=== PATIENT | male | born 1975 | race Caucasian/White ===

== ENCOUNTER 2019-11-13 10:18 | Emergency (ER) | payer SELFPAY ==
--- NOTE | 2019-11-13 10:20 | ED_ITS ---
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
[2019-11-13 10:23] VITALS: BP 128/89; PULSE 85; RESP 16; TEMP 36.7; O2SAT 97; BMI 28.5
--- NOTE | 2019-11-13 10:36 | XR_ITS ---
WS: [id number] XR chest 1V portable [id number] REASON FOR EXAM: cp, cough FINDINGS: Comparisons were made to July 24, 2019. The heart and mediastinal interfaces are normal. The lung schilling are well aerated. There is no pneumonia, pleural effusion, pulmonary edema, pneumotho rax, or mass effect. There is no abnormalities of the hilum or apices. There is no osseous abnormalities. XR/XR chest 1V portable [id number] IMPRESSION: No active cardiopulmonary changes.
--- NOTE | 2019-11-13 10:36 | ECG_ITS ---
Measurements Intervals [place] Rate: 83 P: 31 VT: 161 QRS: -15 QRSD: 101 T: 32 QT: 339 QTc: 400 SINUS RHYTHM MODERATE VOLTAGE CRITERIA FOR LVH, CONSIDER NORMAL VARIANT NONSPECIFIC T-WAVE ABNORMALITY Compared to ECG 10/18/2018 20:03:29 T-wave abnormality now present Sinus tachycardia no longer present Electronically Signed On 11-13-2019 13:04:16 VERTICAL BORING MILL OPERATOR by Jayda Gonzalez M.D. [id number]
--- NOTE | 2019-11-13 10:37 | ED_ITS ---
HPI - General Adult General: Chief complaint: Chest Pain Stated complaint: CP X 7DAYS Time Seen by Provider: 11/13/19 10:32 History of Present Illness: HPI narrative: Patient complains about intermittent sharp chest pains over the last 7 days. Denies any nausea vomiting or diaphoresis. Has had chest cold for the last 4 days. Said he had a spasm in his left chest this morning and he felt like he had to come and get checked out. Just quit meth 30 days ago and quit smoking just a few days ago. Does feel little anxious. No cardiac history. MD complaint: Chest pain Onset (ago): day(s) (7 days intermittent) Location: chest Radiation: non-radiation Severity: mild Quality: stabbing Pain Consistency: intermittent Associated symptoms: Reports chest pain and cough; Deny diaphoresis, dyspnea, fevers/chills, headache(s), nausea, rash, palpitations, short of breath or vomiting Review of Systems Const: Denies: diaphoresis Eyes: Denies: change in vision or blurry vision ENMT: Reports: nasal congestion; Denies: throat pain Card: Reports: chest pain; Denies: palpitations Resp: Denies: shortness of breath, productive cough or non-productive cough GI: Denies: abdominal pain, nausea or vomiting : Denies: difficulty urinating Musc: Denies: extremity pain Skin/Breast: Denies: rash Neuro: Denies: headache Psych: Denies: anxiety or depression Justin/Lymph: Denies: easy bruising PFSH ED PFSH: Social History Smoking and tobacco status: current every day smoker Physical Exam Const: COMMON NORMALS: no apparent distress, average body habitus and oriented x3 HENMT: COMMON NORMALS: normocephalic HEAD & SCALP: normal to inspection and normocephalic FACE & SINUS: normal facial exam NOSE: other (Nasal congestion) Eye: COMMON NORMALS: conjunctivae normal GENERAL EYE: normal appearance of both eyes CONJUNCTIVA: Yes conjunctivae normal Neck/C-Spine: COMMON NORMALS: no JVD Chest: COMMONS NORMALS: inspection of chest normal Resp: COMMON NORMALS: normal respiratory effort and clear to auscultation bilaterally AUSCULTATION: clear to auscultation bilaterally Cardio: COMMON NORMALS: no JVD, regular rate and regular rhythm RATE: regular rate RHYTHM: regular rhythm GI: COMMON NORMALS: normal to inspection, nondistended, normoactive bowel sounds Extremity: COMMON NORMALS: normal to inspection and full ROM Neuro: COMMON NORMALS: oriented x3 Course Vital Signs: Vital signs: Vital Signs Temperature 98.1 F 11/13/19 10:23 Pulse Rate 85 11/13/19 10:23 Respiratory Rate 16 11/13/19 10:23 Blood Pressure 128/89 11/13/19 10:23 Pulse Oximetry 99 11/13/19 10:39 MDM - General Adult MDM Narrative: Medical decision making narrative: Discussed case with Dr. Rogers agrees that patient is good to go on home as a follow-up here in the ER with primary care if symptoms recur or worsening of symptoms. Heart score is 1. Lab Data: Labs: Lab Results 11/13/19 11/13/19 11/13/19 Range/Units 10:36 10:36 10:36 WBC 6.4 (4.0-10.0) 10^3/ uL RBC 5.08 (4.1-5.3) 10^6/u L Hgb 15.0 (11.7-16.6) g/dL Hct 45.6 (42.0-52.0) % MCV 89.8 (80-94) fL MCH 29.5 (28.0-34.0) pg MCHC 32.9 (30.0-36.0) g/dL RDW 12.9 (12.1-15.1) % Plt Count 198 (130-400) 10^3/c mm MPV 10.9 H (7.4-10.4) fL Neut % (Auto) 38.7 % Lymph % (Auto) 42.7 % [place] % (Auto) 13.9 % Eos % (Auto) 3.6 % Baso % (Auto) 0.3 % Neut # (Auto) 2.5 (1.8-7.7) 10^3/u L Lymph # (Auto) 2.7 (0.8-4.8) 10^3/u L [place] # (Auto) 0.9 (0.2-0.9) 10^3/u L Eos # (Auto) 0.2 (0.0-0.8) 10^3/u L Baso # (Auto) 0.0 (0.0-0.1) 10^3/u L Nucleated RBC % (a uto) 0 % Nucleated RBCs # 0.0 /100WBC Sodium 141 (136-145) mmol/L Potassium 4.3 (3.5-5.1) mmol/L Chloride 103 (98-107) mmol/L Carbon Dioxide 26 (22-29) mmol/L Anion Gap 16.3 (5-19) BUN 14 (6-20) mg/dL Creatinine 0.9 (0.7-1.2) mg/dL GFR Calculation 90.8 (90-130) mL/min Glucose 112 (65-115) mg/dL Calcium 9.9 (8.5-10.5) mg/dL Total Bilirubin 0.4 (0.15-1.2) mg/dL AST 25 (0-40) U/L ALT 34 (0-41) U/L Alkaline Phosphata se 67 (40-130) IU/L Troponin T Baselin e 7 (0-15) ng/mL Total Protein 7.9 (6.6-8.7) g/dL Albumin 4.2 (3.5-5.2) g/dL Globulin 3.7 (1.3-4.6) g/dL EKG Data^: EKG 1: EKG interpretation date: 11/13/19 EKG interpretation time: 10:30 Interpretation: Sinus rhythm, pr-161, qrs 101, LVH Computer generated interpretation: Chest X-Ray 11/13/19 10:36 IMPRESSION: No active cardiopulmonary changes. Discharge Plan Discharge Patient Disposition: Home, Self-Care Clinical Impression: Anxiety, Atypical chest pain Condition: Stable Prescriptions: No Action No Known Home Medications RF: 0 Discharge Orders: Discharge Order (Routine); Ordered 11/13/19 Ordered By: Yeison Pride Referrals: Julia Anguiano DO [Primary Care Provider] - Discharge Diet: Advance as tolerated Discharge Activity: Resume usual activity Patient Instructions: Chest Pain (ED), Methamphetamine Abuse (ED), Anxiety (ED) Activity Restrictions/Additional Instructions: Follow-up with medical provider as directed. Return to the ER or your medical provider if condition worsens. Please read and understand discharge instructions. If any questions ask please. Follow-up with PCP concerning symptoms that you had over last 7 days continue not to smoke and continue to stay off methamphetamines. Coding Level of Care Code ED Slide Attendant for Chg Fwd Exam Comprehensive
[2019-11-13 10:39] VITALS: O2SAT 99
[2019-11-13 10:46] LABS: Basophils % 0.3 %; Eosinophils # 0.2 10^3/uL (0.0-0.8); Eosinophils % 3.6 %; Hematocrit 45.6 % (42.0-52.0); Lymphocytes # 2.7 10^3/uL (0.8-4.8); Lymphocytes % 42.7 %; Mean Corpuscular HGB Conc 32.9 g/dL (30.0-36.0); Mean Corpuscular Hemoglobin 29.5 pg (28.0-34.0); Mean Corpuscular Volume 89.8 fL (80-94); Mean Platelet Volume 10.9 fL (7.4-10.4); Monocytes # 0.9 10^3/uL (0.2-0.9); Monocytes % 13.9 %; Neutrophils # 2.5 10^3/uL (1.8-7.7); Neutrophils % 38.7 %; Nucleated Red Blood Cells % 0 %; Platelet Count 198 10^3/cmm (130-400); Red Blood Count 5.08 10^6/uL (4.1-5.3); Red Cell Distribution Width 12.9 % (12.1-15.1); White Blood Count 6.4 10^3/uL (4.0-10.0)
[2019-11-13 11:05] LABS: Alanine Aminotransferase 34 U/L (0-41); Albumin Level 4.2 g/dL (3.5-5.2); Alkaline Phosphatase 67 IU/L (40-130); Anion Gap 16.3 (5-19); Aspartate Amino Transferase 25 U/L (0-40); Blood Urea Nitrogen 14 mg/dL (6-20); Calcium 9.9 mg/dL (8.5-10.5); Carbon Dioxide 26 mmol/L (22-29); Chloride 103 mmol/L (98-107); Globulin 3.7 g/dL (1.3-4.6); Glomerular Filtration Rate 90.8 mL/min (90-130); Glucose 112 mg/dL (65-115); Potassium 4.3 mmol/L (3.5-5.1); Sodium 141 mmol/L (136-145); Total Bilirubin 0.4 mg/dL (0.15-1.2); Total Protein 7.9 g/dL (6.6-8.7); Troponin(5th) Baseline 7 ng/mL (0-15)
[2019-11-13 11:41] VITALS: BP 120/91; PULSE 65; RESP 17; O2SAT 97
== END 2019-11-13 11:41 | disposition home or self-care (01) ==
PROVIDERS: Emergency Provider Nurse Practitioner Family; Family Provider Family Medicine; PCP Family Medicine
DX: R07.89 Other chest pain (principal); Z87.891 Personal history of nicotine dependence
CPT/HCPCS: 36415; 71045; 80053; 84484; 85025; 93005; 99283; 99284; A9270

== ENCOUNTER → 2019-11-14 15:14 | Outpatient (BNVA) | payer SELFPAY | PROVIDERS: Family Provider Family Medicine; PCP Family Medicine; Visit Provider Nurse Practitioner Family | DX: J20.8 Acute bronchitis due to other specified organisms (principal); B96.89 Other specified bacterial agents as the cause of diseases classified elsewhere; R05 Cough | CPT/HCPCS: 87081; 87804; 87880 ==

== ENCOUNTER 2020-04-27 00:01 | Inpatient (IN) | payer SELFPAY ==
[2020-04-27 00:08] VITALS: BP 126/91; PULSE 141; RESP 20; TEMP 37.2; O2SAT 96; BMI 30.7
--- NOTE | 2020-04-27 00:23 | ECG_ITS ---
[facility] Test Date: 2020-04-27 Pat Name: Ava Whitaker Department: Room: 150 Gender: Male Entry Level Web Developer: : 1975 Requested By: Sergio Funes Order Number: [id number] Harden MD: Jj Ashley M.D. Measurements Intervals [place] Rate: 131 P: 66 GA: 141 QRS: -15 QRSD: 94 T: 62 QT: 378 QTc: 558 Interpretive Statements SINUS TACHYCARDIA NONSPECIFIC ST-T WAVE CHANGES Compared to ECG 11/13/2019 10:30:41 Possible ischemia now present Sinus rhythm no longer present T-wave abnormality still present Electronically Signed On 04-27-2020 18:37:10 CDT by Jj Ashley M.D. [id number]
[2020-04-27 00:49] LABS: Alanine Aminotransferase 41 U/L (0-41); Albumin Level 4.8 g/dL (3.5-5.2); Alkaline Phosphatase 62 IU/L (40-130); Anion Gap 16.2 (5-19); Aspartate Amino Transferase 46 U/L (0-40); Blood Urea Nitrogen 15 mg/dL (6-20); Calcium 9.5 mg/dL (8.5-10.5); Carbon Dioxide 29 mmol/L (22-29); Chloride 102 mmol/L (98-107); Globulin 3.4 g/dL (1.3-4.6); Glomerular Filtration Rate 59.4 mL/min (90-130); Glucose 105 mg/dL (65-115); Osmolality Calculated 293 mOsm/kg (285-295); Potassium 4.2 mmol/L (3.5-5.1); Sodium 143 mmol/L (136-145); Total Bilirubin 0.8 mg/dL (0.15-1.2); Total Protein 8.2 g/dL (6.6-8.7)
--- NOTE | 2020-04-27 00:50 | W.ED.PSYCH ---
HPI - Psych General: Chief Complaint: Psychiatric Symptoms Stated Complaint: si Time Seen by Provider: 04/27/20 00:42 Source: patient Mode of arrival: ambulatory Limitations: no limitations History of Present Illness: HPI Narrative: Patient comes in today for complaints of suicidal thoughts. Patient states that he has a history of drug abuse and has become tired of his life. Patient feels like he would shoot himself in the head while acting out the gunshot to his head. Patient states he is picked out where he wants to kill himself. His last neuropsychiatric visit was September 2018. Patient had been seen in the ER this year in September 2019 for anxiety. Patient admits to methamphetamine use, LSD use, and marijuana use. Patient denies alcohol. Patient did report history use of methadone and Suboxone. Patient states that he feels like he has a demon inside of himself and he just needs to get rid of it. Patient is concerned that we are going get medicine to knock him out, he does not want that. Patient wants help to get off drugs and to not feel suicidal. MD complaint: suicidal ideation and feels depressed Associated symptoms: Reports suicidal ideation Review of Systems General: Reports: 10 or more systems reviewed and unremarkable except in HPI and below Psych: Reports: suicidal ideation [facility] ED PFSH: Social History Smoking and tobacco status: current every day smoker Alcohol intake: never Physical Exam Const: COMMON NORMALS: no acute distress and patient oriented x3 GENERAL APPEARANCE: cooperative and well kempt HENMT: COMMON NORMALS: normocephalic and Normal external nose present HEAD & SCALP: normal to inspection and normocephalic NOSE: Normal external nose present Eye: GENERAL EYE: appearance normal, both eyes and all related structures Neck/C-Spine: COMMON NORMALS: full ROM Chest: COMMONS NORMALS: normal inspection of the chest Resp: COMMON NORMALS: normal respiratory effort EFFORT & INSPECTION: Yes able to speak in complete sentences Cardio: COMMON NORMALS: regular rate and regular rhythm RATE: regular rate RHYTHM: regular rhythm GI: COMMON NORMALS: non-tender Back/Pelvis: COMMON NORMALS: thoracic and lumbar spine normal to inspection Extremity: COMMON NORMALS: normal to inspection Neuro: COMMON NORMALS: patient oriented x3 and moves all extremities Psych: COMMON NORMALS: speech normal APPEARANCE: Yes well kempt ATTITUDE: Yes calm ACTIVITY/MOTOR BEHAVIOR: Yes fidgeting and Yes Avoids eye contact (attititude/behavior) SPEECH: Yes normal speech MOOD & AFFECT: Yes anxious THOUGHT PROCESS: disorganized THOUGHT CONTENT: Yes Suicidality present ATTENTION/CONCENTRATION: Yes attention grossly intact MEMORY/COGNITION: Yes memory grossly intact INSIGHT: Fair insight present (Psych) JUDGEMENT: Poor judgement present (Psych) Skin: COMMON NORMALS: no rashes or lesions noted GENERAL SKIN EXAM: no rashes or lesions noted MDM - Psych MDM Narrative: Medical decision making narrative: Patient comes in today for concerns of suicidal thoughts. Patient does report the use of methamphetamines and marijuana. Patient's last use of methamphetamines was today. Patient reports that he is thinking about shooting himself in the head. Patient says he has in place that he is going to do it and comes into the ER really concerned about this. Exam notes a restless individual who is cooperative. Respirations are even lungs are clear to auscultation. Pulse rate is up a little bit at 140 although patient did use methamphetamines today. Differential diagnosis includes but not limited to substance abuse, suicidal ideation, major depressive disorder. Patient was given 1/2 mg Ativan for restlessness. Laboratory values were insignificant. Patient needs admission for protection of self and others, psychiatric consultation and treatment. Lab Data: Labs: Lab Results 04/27/20 04/27/20 Range/Units 00:21 00:21 WBC 10.0 (4.0-10.0) 10^3/ uL RBC 5.30 (4.1-5.3) 10^6/u L Hgb 15.7 (11.7-16.6) g/dL Hct 48.3 (42.0-52.0) % MCV 91.1 (80-94) fL MCH 29.6 (28.0-34.0) pg MCHC 32.5 (30.0-36.0) g/dL RDW 12.6 (12.1-15.1) % Plt Count 315 (130-400) 10^3/c mm MPV 10.7 H (7.4-10.4) fL Neut % (Auto) 53.3 % Lymph % (Auto) 33.1 % [place] % (Auto) 12.4 % Eos % (Auto) 0.7 % Baso % (Auto) 0.3 % Neut # (Auto) 5.36 (1.8-7.7) 10^3/u L Lymph # (Auto) 3.3 (0.8-4.8) 10^3/u L [place] # (Auto) 1.2 H (0.2-0.9) 10^3/u L Eos # (Auto) 0.1 (0.0-0.8) 10^3/u L Baso # (Auto) 0.0 (0.0-0.1) 10^3/u L Nucleated RBC % (a uto) 0 % Nucleated RBCs # 0.0 /100WBC Sodium 143 (136-145) mmol/L Potassium 4.2 (3.5-5.1) mmol/L Chloride 102 (98-107) mmol/L Carbon Dioxide 29 (22-29) mmol/L Anion Gap 16.2 (5-19) BUN 15 (6-20) mg/dL Creatinine 1.3 H (0.7-1.2) mg/dL GFR Calculation 59.4 L (90-130) mL/min Glucose 105 (65-115) mg/dL Calculated Osmolal ity 293 (285-295) mOsm/k g Calcium 9.5 (8.5-10.5) mg/dL Total Bilirubin 0.8 (0.15-1.2) mg/dL AST 46 H (0-40) U/L ALT 41 (0-41) U/L Alkaline Phosphata se 62 (40-130) IU/L Total Protein 8.2 (6.6-8.7) g/dL Albumin 4.8 (3.5-5.2) g/dL Globulin 3.4 (1.3-4.6) g/dL Salicylates < 0.3 L (3-10) mg/dL Acetaminophen < 5.0 L (10-30) ug/mL Ethyl Alcohol < 10 (0-10) mg/dL EKG Data^: EKG 1: Attestation: I personally reviewed and interpreted this EKG as follows: (0030, sinus tachycardia, regular rate at 130 bpm, no ST elevation no ectopy.) Discharge Plan Discharge Patient Disposition: Psych Hosp/Unit w Plan Readm Clinical Impression: Suicidal ideation, Substance abuse Condition: Stable Referrals: Julia Anguiano DO [Primary Care Provider] - Coding Level of Care Code ED [place] [facility] [place] for Chg Fwd Exam Comprehensive
[2020-04-27] MEDS: LORazepam 1 mg Tablet 0.5 MG PO (00:57)
[2020-04-27 00:59] LABS: Acetaminophen < 5.0 ug/mL (10-30); Alcohol Level < 10 mg/dL (0-10); Salicylate < 0.3 mg/dL (3-10)
[2020-04-27 01:04] VITALS: BP 136/95; PULSE 118; RESP 18; O2SAT 98
[2020-04-27 01:16] LABS: Basophils % 0.3 %; Eosinophils # 0.1 10^3/uL (0.0-0.8); Eosinophils % 0.7 %; Hematocrit 48.3 % (42.0-52.0); Hemoglobin 15.7 g/dL (11.7-16.6); Lymphocytes # 3.3 10^3/uL (0.8-4.8); Lymphocytes % 33.1 %; Mean Corpuscular HGB Conc 32.5 g/dL (30.0-36.0); Mean Corpuscular Hemoglobin 29.6 pg (28.0-34.0); Mean Corpuscular Volume 91.1 fL (80-94); Mean Platelet Volume 10.7 fL (7.4-10.4); Monocytes # 1.2 10^3/uL (0.2-0.9); Monocytes % 12.4 %; Neutrophils # 5.36 10^3/uL (1.8-7.7); Neutrophils % 53.3 %; Nucleated Red Blood Cells % 0 %; Platelet Count 315 10^3/cmm (130-400); Red Cell Distribution Width 12.6 % (12.1-15.1)
[2020-04-27 02:02] VITALS: BP 97/64; PULSE 101; RESP 15; TEMP 36.8; O2SAT 97
--- NOTE | 2020-04-27 02:27 | PC.NURSE ---
Multiple tattoos. Feet sore from walking.
[2020-04-27 02:33] LABS: Add Urine Microscopic? NO
[2020-04-27 03:26] LABS: Bilirubin Urine Neg (NEGATIVE); Blood Urine Neg (Negative); Glucose Urine UA Norm (Normal); Ketones Urine Negative (Negative); Leukocyte Esterase Urine Negative (Negative); Nitrate Urine Negative (Negative); Protein Urine Neg (Negative); Urine Appearance Clear (CLEAR); Urine Color Yellow (Yellow); Urobilinogen Urine Norm (Negative); pH Urine 5 (5-7)
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
[2020-04-27 03:54] LABS: Amphetamines Screen Urine Positive (Negative); Barbiturates Screen Urine Negative (Negative); Benzodiazepines Screen Urine Negative (Negative); Cocaine Screen Urine Negative (Negative); Opiate Screen Urine Negative (Negative); PCP Screen Urine Negative (Negative); THC Screen Urine Negative (Negative)
[2020-04-27] MEDS: hyDROXYzine 25 mg Capsule 50 MG PO (05:44)
[2020-04-27 06:00] VITALS: BP 148/102; PULSE 134; RESP 23; TEMP 37.4; O2SAT 98
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
[2020-04-27 10:53] VITALS: BP 148/102; PULSE 134; RESP 23; TEMP 37.4; O2SAT 98
[2020-04-27 10:56] VITALS: BP 148/102; PULSE 134; RESP 23; TEMP 37.4; O2SAT 98
--- NOTE | 2020-04-27 18:52 | PC.RESP ---
SMOKING CESSATION INFORMATION SENT TO PATIENT.
== END 2020-04-27 11:35 | disposition home or self-care (01) | DRG 881 ==
LOC: ER 01:19 → NP 01:42
PROVIDERS: Emergency Medicine; Admitting Provider Psychiatry & Neurology Psychiatry; Emergency Provider Nurse Practitioner Family; PCP Family Medicine; Visit Provider Psychiatry & Neurology Psychiatry
DX: F43.21 Adjustment disorder with depressed mood (principal); R45.851 Suicidal ideations; Z59.0 Homelessness; F17.210 Nicotine dependence, cigarettes, uncomplicated
CPT/HCPCS: 12345; 80053; 80306; 80307; 81003; 85025; 93005; 93010; 99284

== ENCOUNTER 2021-07-09 14:53 | Emergency (ER) | payer MEDICAID, SELFPAY ==
[2021-07-09 15:16] VITALS: BP 124/85; PULSE 81; RESP 18; TEMP 36.5; O2SAT 98; BMI 28.5
--- NOTE | 2021-07-09 15:25 | XRR_ITS ---
PROCEDURE INFORMATION: Exam: XR Right Elbow Exam date and time: 07/09/2021 3:25 PM Age: 45 years old Clinical indication: Patient HX: Woke up this morning with pain on the posterior portion of the right elbow. No injuries reported. TECHNIQUE: Imaging protocol: XR Right elbow. Views: 3 or more views. COMPARISON: No relevant prior studies available. FINDINGS: Bones/joints: There is enthesophyte at the triceps tendon attachment consistent with enthesopathy. Soft tissues: Normal. XR/XR elbow RT min 3V* [id number] IMPRESSION: There is enthesophyte at the triceps tendon attachment consistent with enthesopathy. Radiation Dose CTDIVOL = (mGy): DLP = (mGy-cm)
--- NOTE | 2021-07-09 15:25 | W.ED.EXTPRO ---
HPI - Extremity Problem General: Chief complaint: Extremity Injury, Upper Stated complaint: R ARM PROBLEM Time Seen by Provider: 07/09/21 15:21 History of Present Illness: HPI Narrative: 45-year-old male presents emergency room complaining swelling over the right olecranon. He has pain with full extension and pain with flexion but he can pronate and supinate without any difficulty cannot recall any particular trauma. No previous injury to that elbow. Began overnight. States his forearm feels numb at times. MD Complaint: joint swelling and joint pain Onset (ago): hour(s) Pain Consistency: constant Location: right and elbow Quality: sharp Radiation: distal Relieving factors: immobilization Exacerbating factors: range of motion and palpation Associated symptoms: Deny arthralgias, chest pain, fever(s), rash or short of breath Review of Systems Const: Denies: fever(s) ENMT: Denies: throat pain, ear or mastoid pain, nasal discharge or nasal congestion Card: Denies: chest pain Resp: Denies: dyspnea, productive cough or non-productive cough GI: Denies: abdominal pain, nausea, vomiting, hematemesis, coffee ground emesis, diarrhea, constipation, bloating, hematochezia or melena : Denies: flank pain, dysuria, urinary frequency or urinary urgency Skin/Breast: Denies: rash PFSH ED PFSH: Social History Smoking and tobacco status: current every day smoker Alcohol intake: never Physical Exam Const: COMMON NORMALS: no acute distress GENERAL APPEARANCE: cooperative and comfortable ORIENTATION/CONSCIOUSNESS: Yes awake, Yes oriented to person, Yes oriented to place and Yes oriented to time HENMT: COMMON NORMALS: normocephalic, atraumatic, hearing grossly normal bilaterally and external ears normal HEAD & SCALP: normocephalic and atraumatic EXTERNAL EAR: Yes external ears normal Neck/C-Spine: COMMON NORMALS: no JVD Resp: COMMON NORMALS: normal respiratory effort, No retractions, No use of accessory muscles and clear to auscultation bilaterally AUSCULTATION: clear to auscultation bilaterally Cardio: COMMON NORMALS: no JVD, regular rate, regular rhythm and No murmurs present (Cardio) RATE: regular rate RHYTHM: regular rhythm GI: COMMON NORMALS: Soft to palpation and No hepatosplenomegaly present AUSCULTATION: Yes normoactive bowel sounds PALPATION: Yes Soft to palpation, No Tenderness to palpation present (GI), No Guarding due to palpation present (GI) and Yes No hepatosplenomegaly present Extremity: COMMON NORMALS: normal to inspection, capillary refill normal, no clubbing, cyanosis or edema, no calf tenderness and no pedal edema Neuro: SENSORIUM/ORIENTATION: Yes oriented to person, Yes oriented to place and Yes oriented to time Skin: COMMON NORMALS: no rashes or lesions noted GENERAL SKIN EXAM: no rashes or lesions noted Course Vital Signs: Vital signs: Vital Signs Temperature 97.7 F 07/09/21 15:16 Pulse Rate 81 07/09/21 15:16 Respiratory Rate 18 07/09/21 15:16 Blood Pressure 124/85 07/09/21 15:16 Pulse Oximetry 98 07/09/21 15:16 MDM - Extremity (Nontraumatic) MDM Narrative: Medical decision making narrative: No acute fracture. Patient is a mild olecranon bursitis think he does some bit of triceps tendinitis or there is some bone spurring near the triceps tendon. Go and start him on some diclofenac can use ice or heat alternating to comfort. Will refer him to orthopedics if worsening symptoms return. Discharge Plan Discharge Patient Disposition: Home Clinical Impression: Elbow pain, right, Bursitis, olecranon Condition: Stable Prescriptions: New diclofenac sodium 75 mg tablet,delayed release (DR/EC) 75 mg PO Q12H PRN (Reason: pain) Qty: 20 RF: 0 No Action albuterol sulfate [ProAir HFA] 90 mcg/actuation HFA aerosol inhaler See Rx Instructions INHALATION .COMPLEX PRN (Reason: shortness of breath or wheezing) Qty: 8.5 RF: 0 azithromycin 250 mg tablet See Rx Instructions PO .COMPLEX Qty: 6 RF: 0 trazodone 50 mg Tablet 50 mg PO BEDTIME PRN (Reason: Sleep) Qty: 15 RF: 1 Discharge Orders: Discharge ED (Routine); Ordered 07/09/21 Ordered By: Cristofer Johnson Discharge Diet: Usual diet Discharge Activity: Limit activity as instructed Patient Instructions: Opioid Safety Activity Restrictions/Additional Instructions: No use of the right arm until follow-up with orthopedics. Use sling. Return if any further problems. Case management will call to make arrangements for outpatient orthopedic consultation. Coding Level of Care Code ED Kayaking Instructor for Chg Fwd Exam Comprehensive
[2021-07-09] MEDS: ketorolac 30 mg/mL INJ 60 MG IM (16:03)
--- NOTE | 2021-07-10 13:45 | DCPLANNER ---
project manager finance had message to schedule a follow up appointment for patient with ortho. project manager finance called the ortho clinic, spoke with Nessa, gave clinic patients information. project manager finance was told that patients information would be printed and reviewed. Clinic will call patient with appointment information.
--- NOTE | 2021-08-02 12:40 | DCPLANNER ---
Patient had a follow up appointment scheduled with ortho - patient did not attend appointment.
== END 2021-07-09 16:56 | disposition home or self-care (01) ==
PROVIDERS: Emergency Provider Family Medicine
DX: M70.21 Olecranon bursitis, right elbow (principal); F17.210 Nicotine dependence, cigarettes, uncomplicated
CPT/HCPCS: 73080; 96372; 99283; J1885

== ENCOUNTER 2021-08-18 19:20 | Emergency (ER) | payer MEDICAID, SELFPAY ==
[2021-08-18 19:29] VITALS: BP 174/114; PULSE 94; RESP 18; TEMP 37.1; O2SAT 97; BMI 29.1
--- NOTE | 2021-08-18 19:40 | ED_ITS ---
HPI - Wound/Laceration General: Chief Complaint: Wound/Laceration Stated Complaint: Rt Elbow Infected Time Seen by Provider: 08/18/21 19:40 History of Present Illness: HPI narrative: Patient has a coin-sized lesion to the right elbow area with minimal redness surrounding it. Patient states is been there about 3 weeks has not been able to get it to heal up completely. Patient feels that he may have staph in the wound. Patient appears well. Patient appears no acute distress. Review of Systems General: Reports: 10 or more systems reviewed and unremarkable except in HPI and below Skin/Breast: Reports: other (Poor healing wound right elbow) PFSH ED 2 PFSH: Social History Smoking and tobacco status: current every day smoker Alcohol intake: never Physical Exam Const: COMMON NORMALS: no acute distress and patient oriented x3 GENERAL APPEARANCE: cooperative HENMT: COMMON NORMALS: normocephalic HEAD & SCALP: normal to inspection and normocephalic Eye: GENERAL EYE: appearance normal, both eyes and all related structures Neck/C-Spine: COMMON NORMALS: full ROM Chest: COMMONS NORMALS: normal inspection of the chest Resp: COMMON NORMALS: normal respiratory effort EFFORT & INSPECTION: Yes able to speak in complete sentences Cardio: COMMON NORMALS: regular rate and regular rhythm RATE: regular rate RHYTHM: regular rhythm GI: COMMON NORMALS: non-tender Extremity: COMMON NORMALS: normal to inspection Neuro: COMMON NORMALS: patient oriented x3 and moves all extremities Psych: COMMON NORMALS: mental status grossly normal and cooperative Skin: NARRATIVE SKIN EXAM: Excoriated 2 cm circular wound to the right elbow with minimal surrounding redness. Normal range of motion of the elbow. Course Vital Signs: Vital signs: Vital Signs Temperature 98.7 F 08/18/21 19:29 Pulse Rate 94 08/18/21 19:45 Respiratory Rate 18 08/18/21 19:45 Blood Pressure 174/114 08/18/21 19:45 Pulse Oximetry 97 08/18/21 19:45 MDM - Wound/Laceration MDM Narrative: Medical decision making narrative: Patient comes in with a poor healing wound to the right elbow. 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 Patient appears well. Patient appears no acute distress. Differential diagnosis includes wound infection, picking disorder, fungal infection. Patient will be started on B actrim 1 tablet twice a day for 7 days and some mupirocin ointment twice a day to the wound until healed. Patient was recommended to just wash the wound with mild soap and water apply antibiotic ointment and cover. Patient was recommended to return to the ER for worsening symptoms or new concerns. Patient reported understanding. Discharge Plan Discharge Patient Disposition: Home Clinical Impression: Infected wound Condition: Stable Prescriptions: New mupirocin 2 % ointment 1 applic topical BID Qty: 22 RF: 0 Bactrim DS 800-160 mg tablet 1 tab PO BID 7 Days Qty: 14 RF: 0 No Action albuterol sulfate [ProAir HFA] 90 mcg/actuation HFA aerosol inhaler See Rx Instructions INHALATION .COMPLEX PRN (Reason: shortness of breath or wheezing) Qty: 8.5 RF: 0 azithromycin 250 mg tablet See Rx Instructions PO .COMPLEX Qty: 6 RF: 0 trazodone 50 mg Tablet 50 mg PO BEDTIME PRN (Reason: Sleep) Qty: 15 RF: 1 diclofenac sodium 75 mg tablet,delayed release (DR/EC) 75 mg PO Q12H PRN (Reason: pain) Qty: 20 RF: 0 Discharge Orders: Discharge ED (Routine); Ordered 08/18/21 Ordered By: Sergio Saenz Discharge Diet: Usual diet Discharge Activity: Increase activity as tolerated Patient Instructions: Wound Infection (ED), Opioid Safety Activity Restrictions/Additional Instructions: Take antibiotic twice a day for the next 7 days. Apply mupirocin ointment twice a day to wound and cover with dressing or Band-Aid. Drink plenty of water. Follow-up with primary care. Return to the ER for worsening symptoms or new co ncerns. Coding Level of Care Code ED Laborer Powerhouse for Que To
[2021-08-18 19:45] VITALS: BP 174/114; PULSE 94; RESP 18; O2SAT 97
[2021-08-18] MEDS: sulfamethoxazole-trimeth DS 160-800 mg Tablet 1 TAB PO (20:12)
[2021-08-18] MEDS: mupirocin oint 22 gm 1 APPLIC TOPICAL (20:12)
== END 2021-08-18 20:00 | disposition home or self-care (01) ==
PROVIDERS: Emergency Provider Nurse Practitioner Family
DX: S51.001A Unspecified open wound of right elbow, initial encounter (principal); L08.9 Local infection of the skin and subcutaneous tissue, unspecified; X58.XXXA Exposure to other specified factors, initial encounter
CPT/HCPCS: 99283

== ENCOUNTER 2021-09-07 16:16 | Emergency (ER) | payer MEDICAID, SELFPAY ==
--- NOTE | 2021-09-07 16:23 | XRR_ITS ---
PROCEDURE INFORMATION: Exam: XR Right Shoulder Exam date and time: 09/07/2021 4:23 PM Age: 45 years old Clinical indication: Injury or trauma; Fall; Blunt trauma (contusions or hematomas); Shoulder; Right; Additional info: Pain TECHNIQUE: Imaging protocol: XR Right shoulder. Views: 2 or more views. COMPARISON: CR XR chest 1V portable [id number] 11/13/2019 10:40 AM FINDINGS: Bones/joints: Normal. Right 7th posterior chronic rib fracture. Soft tissues: Normal. XR/XR shoulder RT min 2V* [id number] IMPRESSION: No acute findings.
[2021-09-07 16:39] VITALS: BP 133/92; PULSE 85; RESP 16; TEMP 36.6; O2SAT 97
[2021-09-07 17:01] VITALS: BP 136/87; PULSE 78; PULSE 79; RESP 18; TEMP 36.8; O2SAT 98
--- NOTE | 2021-09-07 17:11 | W.ED.EXTPRO ---
HPI - Extremity Problem General: Chief complaint: Extremity Injury, Upper Stated complaint: R shoulder pain Time Seen by Provider: 09/07/21 17:07 History of Present Illness: HPI Narrative: Patient is a 45-year-old male comes to the ED with right shoulder injury and pain. Patient says last night he had been drinking a little bit and fell and hit his ground on the right shoulder. He has pain with any movement of right arm he rates the pain currently an 8 out of 10. Denies any head trauma, loss of consciousness or headache. Associated symptoms: Deny chest pain, fever(s) or rash Review of Systems Const: Denies: fever(s), chills or fatigue Eyes: Denies: change in vision or eye discomfort ENMT: Denies: throat pain, odynophagia, nasal discharge or nasal congestion Card: Denies: chest pain, palpitations, edema, swelling of feet/ankles, dyspnea on exertion or orthopnea Resp: Denies: dyspnea, productive cough or non-productive cough GI: Denies: abdominal pain, nausea, vomiting, diarrhea, constipation or hematochezia : Denies: flank pain, difficulty urinating, dysuria or hematuria Musc: Reports: extremity pain (Right shoulder pain) and limited range of motion (Right shoulder); Denies: neck pain, back pain or extremity swelling Skin/Breast: Denies: rash or new lesions Neuro: Denies: headache(s), numbness in extremities or weakness in extremities PFSH ED PFSH: Social History Smoking and tobacco status: current every day smoker Alcohol intake: never Physical Exam Const: COMMON NORMALS: no acute distress, patient oriented x3 and alert GENERAL APPEARANCE: cooperative and comfortable HENMT: COMMON NORMALS: normocephalic HEAD & SCALP: normocephalic MOUTH: Normal oral and palatal mucosa present THROAT: posterior oropharynx normal and uvula midline Neck/C-Spine: COMMON NORMALS: supple GENERAL: Yes normal visual inspection Resp: COMMON NORMALS: normal respiratory effort, No retractions, No use of accessory muscles and clear to auscultation bilaterally AUSCULTATION: clear to auscultation bilaterally Cardio: COMMON NORMALS: regular rate, regular rhythm, S1 normal heart sound present, S2 normal heart sound present, No gallops present (Cardio), No clicks present (Cardio), No murmurs present (Cardio) and Peripheral pulses 2+ throughout RATE: regular rate RHYTHM: regular rhythm HEART SOUNDS: S1 normal heart sound present and S2 normal heart sound present PERIPHERAL PULSES: Peripheral pulses 2+ throughout GI: COMMON NORMALS: Normal to inspection, nondistended, normoactive bowel sounds present, Soft to palpation, non-tender and no masses PALPATION: Yes Soft to palpation : COMMON NORMALS: Yes no CVA tenderness BLADDER/KIDNEY EXAM: Yes no CVA tenderness Back/Pelvis: COMMON NORMALS: no CVA tenderness Extremity: GENERAL: Yes normal exam except as noted RIGHT UPPER EXTREMITY: Yes shoulder joint (Severe tenderness to palpation over AC joint.) Right shoulder: Yes Right shoulder joint inspection exam (No visible deformity or ecchymosis noted.), Yes palpation, Yes Right shoulder joint ROM exam (Limited due to pain) and Yes Right shoulder joint neurovascular exam (Intact) Neuro: COMMON NORMALS: patient oriented x3 and moves all extremities SENSORIUM/ORIENTATION: Yes alert Skin: GENERAL SKIN EXAM: dry skin Course Vital Signs: Vital signs: Vital Signs Temperature 98.3 F 09/07/21 17:01 Pulse Rate 79 09/07/21 17:01 Respiratory Rate 18 09/07/21 17:01 Blood Pressure 136/87 09/07/21 17:01 Pulse Oximetry 98 09/07/21 17:01 MDM - Extremity (Nontraumatic) MDM Narrative: Medical decision making narrative: Patient is a 45-year-old male comes to the ED with an injury to right shoulder. Patient fell onto right shoulder last night. He has severe pain with any movement of right arm and pain is located right at the shoulder joint. Vitals stable. Exam of patient shows some severe AC joint tenderness to palpation and limited range of motion due to pain. Neurovascular tact distally. X-ray of right shoulder showed no acute fractures but did show possible mild AC joint separation. Given his exam findings concern for possible AC joint separation and referring him to orthopedic for further evaluation. He was put in a shoulder sling and discharged home with a prescription for hydrocodone for pain. Return to ED precautions given. I told patient that foster care case manager only calling him in the next several days to set up an appoint with orthopedic doctor for further evaluation. Patient is to agree with plan. Imaging Data^: Xray Ortho: Attestation: I personally reviewed and interpreted this imaging study as follows: My impression: Right shoulder x-ray?no acute fractures noted?possible mild AC joint separation Discharge Plan Discharge Patient Disposition: Home Clinical Impression: Acromioclavicular joint separation Qualifiers: Encounter type: initial encounter Laterality: right Qualified Code(s): S43.101A - Unspecified dislocation of right acromioclavicular joint, initial encounter Condition: Stable Prescriptions: New ibuprofen 800 mg tablet 800 mg PO Q8H PRN (Reason: pain) Qty: 30 RF: 0 No Action albuterol sulfate [ProAir HFA] 90 mcg/actuation HFA aerosol inhaler See Rx Instructions INHALATION .COMPLEX PRN (Reason: shortness of breath or wheezing) Qty: 8.5 RF: 0 azithromycin 250 mg tablet See Rx Instructions PO .COMPLEX Qty: 6 RF: 0 trazodone 50 mg Tablet 50 mg PO BEDTIME PRN (Reason: Sleep) Qty: 15 RF: 1 mupirocin 2 % ointment 1 applic topical BID Qty: 22 RF: 0 diclofenac sodium 75 mg tablet,delayed release (DR/EC) 75 mg PO Q12H PRN (Reason: pain) Qty: 20 RF: 0 Discharge Orders: Discharge ED (Routine); Ordered 09/07/21 Ordered By: Abdullahi Mitchell Discharge Diet: Regular Discharge Activity: Limit activity as instructed Patient Instructions: Acromioclavicular Separation (ED), Opioid Safety Activity Restrictions/Additional Instructions: Follow-up with medical provider as directed. Case management will be contacting you in the next several days set up an appointment with orthopedic for further evaluation. Keep right arm in sling and limit activity with shoulder until cleared by orthopedic doctor. Take medications as prescribed. Return to the ER or your medical provider if condition worsens. Please read and understand discharge instructions. Thank you for choosing [facility] for your healthcare needs today. Please realize this is an emergency room and that we are providing you with a medical screening exam and this may not be complete and all inclusive of all the testing and or work up that you may need to determine your ailment or severity of your illness. It is very important that you follow up as instructed or that you return to the Emergency Department should you have concerns or if your condition changes or worsens in any way. Stand Alone Forms: Work/School Release Coding Level of Care Code ED Chemical Machine Tender for Chg Fwd Exam Comprehensive
[2021-09-07] MEDS: HYDROcodone-acetaminophen 7.5-325 mg Tablet 1 TAB PO (17:33)
--- NOTE | 2021-09-08 22:26 | DCPLANNER ---
cardiac cath lab manager had message to schedule a follow up appointment for patient with ortho. cardiac cath lab manager emailed patients information to the Mari at the ortho clinic. Patients information will be printed and reviewed. Clinic will call patient with appointment.
--- NOTE | 2021-09-12 15:21 | DCPLANNER ---
Patient has a follow up appointment scheduled for Friday, September 17, 2021 at 2:00 with CYNTHIA Beckham at [facility]. Clinic will call patient with appointment information.
--- NOTE | 2021-09-19 15:25 | DCPLANNER ---
Patient had an appointment with ortho - patient did attend appointment.
== END 2021-09-07 18:18 | disposition home or self-care (01) ==
PROVIDERS: Emergency Provider Physician Assistant
DX: F17.210 Nicotine dependence, cigarettes, uncomplicated (principal); S43.101A Unspecified dislocation of right acromioclavicular joint, initial encounter; W18.30XA Fall on same level, unspecified, initial encounter
CPT/HCPCS: 73030; 99283; 99291

== ENCOUNTER → 2021-09-17 14:19 | Outpatient (BNVA) | payer MEDICAID, SELFPAY | PROVIDERS: Referring Provider Physician Assistant; Visit Provider Physician Assistant | DX: M25.511 Pain in right shoulder (principal) | CPT/HCPCS: 73030 ==

== ENCOUNTER 2021-10-04 15:56 | Outpatient (CLI) | payer MEDICAID, SELFPAY ==
--- NOTE | 2021-10-04 16:45 | MR_ITS ---
WS: [id number] MRI RIGHT SHOULDER HISTORY: S46.011A - Strain of muscle(s) and tendon(s) of the rotator cuff. Patient fell on shoulder o ne month ago. COMPARISON: Radiograph 09/17/2021 TECHNIQUE: Multiplanar sequences of the shoulder joint are submitted. There is a large amount of edema surrounding the distal clavicle and the adjacent acromion. There is soft tissue edema and marrow edema. The edema extends into the trapezius muscle. There is a focal flu id defect along the AC ligament anteriorly consistent with an AC ligament tear. There is fluid extend ing into the subacromial and subdeltoid bursa. There is slight mass effect upon the supraspinatus mus radha by the distal clavicle. There is abnormal T2 signal and fluid in the region of the coracoclavicul ar ligament. AC joint measures 8 mm which is mildly widened. Small amount of marrow edema in the form of subchondr al cysts involving the superior humeral head. No acute fracture. Biceps tendon remains in normal posi tion. There is no atrophy of the rotator cuff muscles. There is edema adjacent to the supraspinatus from th e AC ligament injury and the marrow edema in the clavicle. There is also deformity upon the supraspin atus by the distal clavicle with the supraspinatus muscle intact. No rotator cuff tear can be identif ied. Mild glenohumeral joint arthritis. Loss of cartilage along the glenoid. Intrasubstance degeneration i n the superior labrum. Focal tear not excluded. MR/MR shoulder RT wo con* [id number] IMPRESSION: 1. Significant soft tissue and bone injury involving the distal clavicle, acro mion, AC joint and the trapezius. Disruption of the AC joint capsule with moder ate sprain involving the AC ligament. There is very slight encroachment of the distal clavicle upon the supraspinatus which may indicate a mild dislocation. 2. Coracoclavicular ligament sprain. 3. No rotator cuff tear.
== END 2021-10-04 15:57 | disposition home or self-care (01) ==
LOC: RADSHAW 16:02
PROVIDERS: Visit Provider Physician Assistant
DX: S46.011A Strain of muscle(s) and tendon(s) of the rotator cuff of right shoulder, initial encounter (principal); X58.XXXA Exposure to other specified factors, initial encounter
CPT/HCPCS: 73221

== ENCOUNTER 2022-07-21 23:28 | Inpatient (IN) | payer MEDICAID, SELFPAY ==
[2022-07-21 23:29] VITALS: O2SAT 98; BMI 21.7
--- NOTE | 2022-07-21 23:31 | CTR_ITS ---
PROCEDURE INFORMATION: Exam: CT Head Without Contrast Exam date and time: 07/21/2022 11:41 PM Age: 46 years old Clinical indication: Altered mental status/memory loss; Patient HX: Possible drug overdose. Patient unresponsive during exam. No further history. ; Additional info: AMS TECHNIQUE: Imaging protocol: Computed tomography of the head without contrast. Radiation optimization: All CT scans at this facility use at least one of these dose optimization techniques: automated exposure control; mA and/or kV adjustment per patient size (includes targeted exams where dose is matched to clinical indication); or iterative reconstruction. COMPARISON: CT head wo con* [id number] 11/25/2017 1:38 PM RADIATION DOSE METRICS: Total DLP (mGy-cm): 1187.78 FINDINGS: Brain: Small focus of hypoattenuation and loss of singh-white matter differentiation along the right posterior temporal/temporooccipital region concerning for evolving acute infarction or underlying edema. No evidence of acute intracranial hemorrhage. Cerebral ventricles: No ventriculomegaly. Paranasal sinuses: Visualized sinuses are unremarkable. No fluid levels. Mastoid air cells: Visualized mastoid air cells are well aerated. Bones/joints: Unremarkable. No acute fracture. Soft tissues: Unremarkable. CT/CT head wo con* [id number] IMPRESSION: 1. Small focus of hypoattenuation and loss of singh-white matter differentiation along the right posterior temporal/temporooccipital region concerning for evolving acute infarction or underlying edema. The presence of artifacts cannot be excluded. If there is clinical concern, MRI of the brain can be performed for further evaluation. No evidence of acute intracranial hemorrhage. Communication Dr. Harrington by Dr. Boateng on 07/22/2022 at 12:05 a.m.
--- NOTE | 2022-07-21 23:34 | ECG_ITS ---
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 Measurements Intervals [place] Rate: 104 P: 66 MD: 159 QRS: 1 QRSD: 98 T: 60 QT: 339 QTc: 447 Interpretive Statements SINUS TACHYCARDIA NONSPECIFIC ST & T-WAVE ABNORMALITY ABNORMAL RHYTHM ECG INTERPRETATION BASED ON A DEFAULT AGE OF 40 YEARS Compared to ECG 04/27/2020 00:23:08 T-wave abnormality now present ST (T wave) deviation no longer present Electronically Signed On 07-22-2022 21:42:21 CDT by Cristiane Prince M.D. [id number]
--- NOTE | 2022-07-21 23:37 | W.ED.GENADLT ---
HPI - General Adult General: Chief complaint: General Medical Stated complaint: possible ingestion Time Seen by Provider: 07/21/22 23:29 Source: EMS Mode of arrival: EMS Limitations: altered mental status History of Present Illness: 46-year-old male who is here with EMS he does have a history of drug abuse he is known to EMS. Per EMS bystanders had seen him take some pills and then he became altered. They states that when they first arrived that he was very agitated combative and confused. Patient has been given Ativan along with Haldol and Versed he has improved here he is still quite confused he will wake to painful stimuli and is not making any sense or answering any questions. No injuries noted. Review of Systems General: Reports: ROS unobtainable due to mental status PFSH ED PFSH: Medical History Substance abuse Social History Alcohol intake: never Physical Exam Const: COMMON NORMALS: negative for patient oriented x3 GENERAL APPEARANCE: in distress HENMT: COMMON NORMALS: normocephalic and atraumatic HEAD & SCALP: normocephalic and atraumatic Eye: COMMON NORMALS: Equal, round and reactive pupils present and EOMs intact bilaterally PUPIL: Yes Equal, round and reactive pupils present Neck/C-Spine: COMMON NORMALS: full ROM and supple Chest: COMMONS NORMALS: normal inspection of the chest and normal palpation of entire chest wall Resp: COMMON NORMALS: normal respiratory effort, No retractions, No use of accessory muscles and clear to auscultation bilaterally AUSCULTATION: clear to auscultation bilaterally Cardio: COMMON NORMALS: regular rhythm and No murmurs present (Cardio) RATE: tachycardic RHYTHM: regular rhythm GI: COMMON NORMALS: Normal to inspection, nondistended, normoactive bowel sounds present, Soft to palpation, non-tender and no masses PALPATION: Yes Soft to palpation Extremity: COMMON NORMALS: normal to inspection and full ROM Neuro: COMMON NORMALS: moves all extremities and no focal motor deficits; negative for patient oriented x3 Psych: COMMON NORMALS: negative for mental status grossly normal and negative for Normal thought process present THOUGHT PROCESS: abnormal Skin: COMMON NORMALS: no rashes or lesions noted and no wounds GENERAL SKIN EXAM: no rashes or lesions noted Course Vital Signs: Vital signs: Vital Signs Pulse Rate 92 07/22/22 00:30 Respiratory Rate 17 07/22/22 00:30 Blood Pressure 105/73 07/22/22 00:30 Pulse Oximetry 95 07/22/22 00:30 Oxygen Delivery Me thod 07/22/22 00:30 MDM - General Adult Medical Decision Making Patient presents here with altered mental status he does have a history of substance abuse he is positive for amphetamine patient was combative when he arrived he had been combative with police and EMS and was giving Ativan and Haldol in route patient is now asleep he will arouse to painful stimuli but will not answer any questions. This is all likely due to methamphetamine use his head CT did show a small area of hypoattenuation spoke to hospitalist over the CT findings will admit at this time for likely MRI Lab Data : 07/21/22 23:39 07/21/22 23:[address] 07/21/22 23:31 IMPRESSION: 1. Small focus of hypoattenuation and loss of singh-white matter differentiation along the right posterior temporal/temporooccipital region concerning for evolving acute infarction or underlying edema. The presence of artifacts cannot be excluded. If there is clinical concern, MRI of the brain can be performed for further evaluation. No evidence of acute intracranial hemorrhage. Communication Dr. Harrington by Dr. Boateng on 07/22/2022 at 12:05 a.m. Chest X-Ray 07/21/22 23:55 IMPRESSION: No acute radiographic findings in the chest. Laboratory Results WBC 8.2 10^3/uL (4.0-10.0) 07/21/22 23:39 RBC 4.58 10^6/uL (4.1-5.3) 07/21/22 23:39 Hgb 14.0 g/dL (11.7-16.6) 07/21/22 23:39 Hct 41.1 % (42.0-52.0) L 07/21/22 23:39 MCV 89.7 fl (80-94) 07/21/22 23:39 MCH 30.6 pg (28.0-34.0) 07/21/22 23:39 MCHC 34.1 g/dL (30.0-36.0) 07/21/22 23:39 RDW 11.9 % (12.1-15.1) L 07/21/22 23:39 Plt Count 272 10^3/cmm (130-400) 07/21/22 23:39 MPV 10.1 fL (7.4-10.4) 07/21/22 23:39 Neut % (Auto) 67.9 % 07/21/22 23:39 Lymph % (Auto) 21.4 % 07/21/22 23:39 [place] % (Auto) 9.9 % 07/21/22 23:39 Eos % (Auto) 0.4 % 07/21/22 23:39 Baso % (Auto) 0.2 % 07/21/22 23:39 Neut # (Auto) 5.54 10^3/uL (1.8-7.7) 07/21/22 23:39 Lymph # (Auto) 1.8 10^3/uL (0.8-4.8) 07/21/22 23:39 [place] # (Auto) 0.8 10^3/uL (0.2-0.9) 07/21/22 23:39 Eos # (Auto) 0.0 10^3/uL (0.0-0.8) 07/21/22 23:39 Baso # (Auto) 0.0 10^3/uL (0.0-0.1) 07/21/22 23:39 Nucleated RBC % (auto) 0 % 07/21/22 23:39 Nucleated RBCs # 0.0 /100WBC 07/21/22 23:39 Sodium 138 mmol/L (136-145) 07/21/22 23:39 Potassium 3.0 mmol/L (3.5-5.1) L 07/21/22 23:39 Chloride 101 mmol/L (98-107) 07/21/22 23:39 Carbon Dioxide 23 mmol/L (22-29) 07/21/22 23:39 Anion Gap 17.0 (5-19) 07/21/22 23:39 BUN 12 mg/dL (6-20) 07/21/22 23:39 Creatinine 1.1 mg/dL (0.7-1.2) 07/21/22 23:39 GFR Calculation 71.4 mL/min (90-130) L 07/21/22 23:39 Glucose 107 mg/dL (65-115) 07/21/22 23:39 Calculated Osmolality 286 mOsm/kg (285-295) 07/21/22 23:39 Calcium 9.2 mg/dL (8.5-10.5) 07/21/22 23:39 Total Bilirubin 0.7 mg/dL (0.15-1.2) 07/21/22 23:39 AST 57 U/L (0-40) H 07/21/22 23:39 ALT 44 U/L (0-41) H 07/21/22 23:39 Alkaline Phosphatase 65 U/L (40-130) 07/21/22 23:39 Total Protein 7.3 g/dL (6.6-8.7) 07/21/22 23:39 Albumin 4.0 g/dL (3.5-5.2) 07/21/22 23:39 Globulin 3.3 g/dL (1.3-4.6) 07/21/22 23:39 Salicylates < 0.3 mg/dL (3-10) L 07/21/22 23:39 Urine Opiates Screen Negative ng/mL (Negative) 07/22/22 00:05 Acetaminophen < 5.0 ug/mL (10-30) L 07/21/22 23:39 Ur Barbiturates Screen Negative ng/mL (Negative) 07/22/22 00:05 Ur Phencyclidine Scrn Negative ng/mL (Negative) 07/22/22 00:05 Ur Amphetamines Screen Positive ng/mL (Negative) H 07/22/22 00:05 U Benzodiazepines Scrn Negative ng/mL (Negative) 07/22/22 00:05 Urine Cocaine Screen Negative ng/mL (Negative) 07/22/22 00:05 U Marijuana (THC) Screen Negative ng/mL (Negative) 07/22/22 00:05 Ethyl Alcohol < 10 mg/dL (0-10) 07/21/22 23:39 EKG Data EKG 1: I personally reviewed and interpreted this EKG as follows: EKG interpretation date: 07/21/22 EKG interpretation time: 23:34 Interpretation: sinus tach hr [address] or t wave abnormalities qrs 98 qtc 399 Computer generated interpretation: Head CT 07/21/22 23:31 IMPRESSION: 1. Small focus of hypoattenuation and loss of singh-white matter differentiation along the right posterior temporal/temporooccipital region concerning for evolving acute infarction or underlying edema. The presence of artifacts cannot be excluded. If there is clinical concern, MRI of the brain can be performed for further evaluation. No evidence of acute intracranial hemorrhage. Communication Dr. Harrington by Dr. Boateng on 07/22/2022 at 12:05 a.m. Chest X-Ray 07/21/22 23:55 IMPRESSION: No acute radiographic findings in the chest. Discharge Plan Discharge Patient Disposition: Admitted As Inpatient Clinical Impression: Altered mental status, Amphetamine abuse Condition: Stable Coding Level of Care Code ED Program Support Clerk for Chg Fwd Exam Comprehensive
[2022-07-21] MEDS: sodium chloride 0.9% 1,000 ML 999 ML IV (23:45)
[2022-07-21 23:47] LABS: Basophils % 0.2 %; Eosinophils % 0.4 %; Hematocrit 41.1 % (42.0-52.0); Lymphocytes # 1.8 10^3/uL (0.8-4.8); Lymphocytes % 21.4 %; Mean Corpuscular HGB Conc 34.1 g/dL (30.0-36.0); Mean Corpuscular Hemoglobin 30.6 pg (28.0-34.0); Mean Corpuscular Volume 89.7 fl (80-94); Mean Platelet Volume 10.1 fL (7.4-10.4); Monocytes # 0.8 10^3/uL (0.2-0.9); Monocytes % 9.9 %; Neutrophils # 5.54 10^3/uL (1.8-7.7); Neutrophils % 67.9 %; Nucleated Red Blood Cells % 0 %; Platelet Count 272 10^3/cmm (130-400); Red Blood Count 4.58 10^6/uL (4.1-5.3); Red Cell Distribution Width 11.9 % (12.1-15.1); White Blood Count 8.2 10^3/uL (4.0-10.0)
--- NOTE | 2022-07-21 23:55 | XRR_ITS ---
PROCEDURE INFORMATION: Exam: XR Chest Exam date and time: 07/22/2022 12:15 AM Age: 46 years old Clinical indication: Patient HX: Possible drug overdose. Patient unresponsive upon exam. ; Additional info: AMS TECHNIQUE: Imaging protocol: Radiologic exam of the chest. Views: 1 view. COMPARISON: CR XR chest 1V portable [id number] 11/13/2019 10:40 AM FINDINGS: Lungs: Mild low lung volume and mild bronchovascular crowding. No consolidative opacity. Pleural spaces: No pleural effusion. No pneumothorax. Heart/Mediastinum: The cardiomediastinal silhouette is stable in appearance. Bones/joints: Unremarkable. XR/XR chest 1V portable [id number] IMPRESSION: No acute radiographic findings in the chest.
[2022-07-22] VITALS (141 sets, daily range): BP systolic 91–144; BP diastolic 65–99; PULSE 66–116; RESP 14–22; TEMP 36.4–36.6; O2SAT 94–100; BMI 24.0
[2022-07-22 00:06] LABS: Alanine Aminotransferase 44 U/L (0-41); Alkaline Phosphatase 65 U/L (40-130); Aspartate Amino Transferase 57 U/L (0-40); Blood Urea Nitrogen 12 mg/dL (6-20); Calcium 9.2 mg/dL (8.5-10.5); Carbon Dioxide 23 mmol/L (22-29); Chloride 101 mmol/L (98-107); Globulin 3.3 g/dL (1.3-4.6); Glomerular Filtration Rate 71.4 mL/min (90-130); Glucose 107 mg/dL (65-115); Osmolality Calculated 286 mOsm/kg (285-295); Sodium 138 mmol/L (136-145); Total Bilirubin 0.7 mg/dL (0.15-1.2); Total Protein 7.3 g/dL (6.6-8.7)
[2022-07-22 00:10] LABS: Acetaminophen < 5.0 ug/mL (10-30); Salicylate < 0.3 mg/dL (3-10)
[2022-07-22 00:25] LABS: Alcohol Level < 10 mg/dL (0-10)
[2022-07-22 00:43] LABS: Amphetamines Screen Urine Positive (Negative); Barbiturates Screen Urine Negative (Negative); Benzodiazepines Screen Urine Negative (Negative); Cocaine Screen Urine Negative (Negative); Opiate Screen Urine Negative (Negative); PCP Screen Urine Negative (Negative); THC Screen Urine Negative (Negative)
[2022-07-22 05:27] LABS: Chol HDL Ratio 2.28 mg/dL (1.0-5.00); Cholesterol 107 mg/dL (0-200); HDL Cholesterol 47 mg/dL (60-100); LDL Cholesterol Calculated 55 mg/dL (50-129); LDL HDL Ratio 1.17 RATIO (0.00-3.22); Triglycerides 26 mg/dL (0-150)
[2022-07-22 05:29] LABS: HIV 1 & 2 Antibody Non-Reactive (Non-Reactiv); HIV 1 & 2 Antigen Non-Reactive (Non-Reactiv)
[2022-07-22 05:46] LABS: Estmated Average Glucose 111; Hemoglobin A1C 5.5 % (4.0-6.0)
[2022-07-22 06:27] LABS: Alanine Aminotransferase 40 U/L (0-41); Albumin Level 3.7 g/dL (3.5-5.2); Alkaline Phosphatase 62 U/L (40-130); Anion Gap 17.6 (5-19); Aspartate Amino Transferase 55 U/L (0-40); Blood Urea Nitrogen 11 mg/dL (6-20); Calcium 8.9 mg/dL (8.5-10.5); Carbon Dioxide 21 mmol/L (22-29); Chloride 103 mmol/L (98-107); Globulin 3.1 g/dL (1.3-4.6); Glomerular Filtration Rate 90.1 mL/min (90-130); Glucose 91 mg/dL (65-115); Osmolality Calculated 285 mOsm/kg (285-295); Potassium 3.6 mmol/L (3.5-5.1); Sodium 138 mmol/L (136-145); Total Bilirubin 0.6 mg/dL (0.15-1.2); Total Protein 6.8 g/dL (6.6-8.7)
--- NOTE | 2022-07-22 07:18 | P.HP_ITS ---
Providers/Chief Complaint Admitting Physician: Dara Abrams MD Chief Complaint: possible ingestion History of Present Illness Ava Whitaker Jr is a 46 year old male with a past medical history of substance abuse, hepatitis C, uncertain if treated, history of suicidal ideation brought to the emergency room today with altered mental status. Per EMS that brought him in, bystanders had seen patient take some unidentified pills following which she became extremely agitated and combative. He was confused. In route via EMS he received Ativan, Versed and Haldol following which he became calm however has remained with altered mentation. There was no noted head trauma. No other history is available at this time. Urine tox screen is positive for amphetamines. Other lab abnormalities include mild transaminitis. He is hemodynamically stable. CT of his head was obtained to evaluate for any head injury which is negative for any intracranial bleeding but showedSmall focus of hypoattenuation and loss of singh-white matter differentiation along the right posterior temporal/temporooccipital region concerning for evolving acute infarction or underlying edema. Currently unable to perform a full neuro exam due to his altered mentation and inability to follow commands. Review of Systems General: Reports: ROS unobtainable due to mental status Medications/Allergies Home Medications Medication Instructions Recorded Confirmed Last Taken Type albuterol sulfate 90 mcg/actuation See Rx Instructions inhalation 11/20/19 10/08/21 Unknown Rx aerosol inhaler (ProAir HFA) .COMPLEX PRN shortness of breath or wheezing #8.5 grams trazodone 50 mg tablet 50 mg PO BEDTIME PRN Sleep #15 tabs 04/27/20 10/08/21 Unknown Rx diclofenac sodium 75 mg 75 mg PO Q12H PRN pain #20 tabs 07/09/21 10/08/21 Unknown Rx tablet,delayed release mupirocin 2 % topical ointment 1 applic topical BID #22 grams 08/18/21 10/08/21 Unknown Rx ibuprofen 800 mg tablet 800 mg PO Q8H PRN pain #30 tabs 09/07/21 10/08/21 Unknown Rx Allergies Allergy/AdvReac Type Severity Reaction Status Date / Time morphine Allergy Unknown Verified 07/21/22 23:34 PFSH Acute PFSH: Medical History Substance abuse Social History Alcohol intake: never Vitals/I&O/Wt Last Vital Signs Temp 97.8 F 07/22/22 03:01 Pulse 79 07/22/22 06:05 Resp 17 07/22/22 06:05 BP 105/80 07/22/22 06:05 Pulse Ox 96 07/22/22 06:05 O2 Del Method 07/22/22 03:15 07/21/22 07/22/22 07/22/22 22:59 06:59 14:59 Intake Total 1000 / 1000 Output Total 0 / 0 Balance 1000 / 1000 Weight last 48 hrs Weight 80.513 kg Weight 72.575 kg Physical Exam Narrative: General: No acute distress, AO x1 HEENT: PERRLA, pupils bilaterally equal and reactive, pallors not present Chest: Normal vesicular breath sounds, no added sounds, equal good air entry bilaterally CVS: S1-S2 regular, no murmurs, no tachycardia, no gallops, no rubs Abdomen: Soft, nontender, no organomegaly, bowel sounds present Neuro: Unable to assess as patient is currently somnolent, appears to be moving all extremities in bed without issues. However does not follow commands for full neuro exam. Data : 07/21/22 23:39 07/22/22 03:49 Other Labs: Radiology Impressions Head CT 07/21/22 23:31 IMPRESSION: 1. Small focus of hypoattenuation and loss of singh-white matter differentiation along the right posterior temporal/temporooccipital region concerning for evolving acute infarction or underlying edema. The presence of artifacts cannot be excluded. If there is clinical concern, MRI of the brain can be performed for further evaluation. No evidence of acute intracranial hemorrhage. Communication Dr. Harrington by Dr. Boateng on 07/22/2022 at 12:05 a.m. Chest X-Ray 07/21/22 23:55 IMPRESSION: No acute radiographic findings in the chest. Laboratory Results WBC 8.2 10^3/uL (4.0-10.0) 07/21/22 23:39 RBC 4.58 10^6/uL (4.1-5.3) 07/21/22 23:39 Hgb 14.0 g/dL (11.7-16.6) 07/21/22 23:39 Hct 41.1 % (42.0-52.0) L 07/21/22 23:39 MCV 89.7 fl (80-94) 07/21/22 23:39 MCH 30.6 pg (28.0-34.0) 07/21/22 23:39 MCHC 34.1 g/dL (30.0-36.0) 07/21/22 23:39 RDW 11.9 % (12.1-15.1) L 07/21/22 23:39 Plt Count 272 10^3/cmm (130-400) 07/21/22 23:39 MPV 10.1 fL (7.4-10.4) 07/21/22 23:39 Neut % (Auto) 67.9 % 07/21/22 23:39 Lymph % (Auto) 21.4 % 07/21/22 23:39 [place] % (Auto) 9.9 % 07/21/22 23:39 Eos % (Auto) 0.4 % 07/21/22 23:39 Baso % (Auto) 0.2 % 07/21/22 23:39 Neut # (Auto) 5.54 10^3/uL (1.8-7.7) 07/21/22 23:39 Lymph # (Auto) 1.8 10^3/uL (0.8-4.8) 07/21/22 23:39 [place] # (Auto) 0.8 10^3/uL (0.2-0.9) 07/21/22 23:39 Eos # (Auto) 0.0 10^3/uL (0.0-0.8) 07/21/22 23:39 Baso # (Auto) 0.0 10^3/uL (0.0-0.1) 07/21/22 23:39 Nucleated RBC % (auto) 0 % 07/21/22 23:39 Nucleated RBCs # 0.0 /100WBC 07/21/22 23:39 Sodium 138 mmol/L (136-145) 07/22/22 03:49 Potassium 3.6 mmol/L (3.5-5.1) 07/22/22 03:49 Chloride 103 mmol/L (98-107) 07/22/22 03:49 Carbon Dioxide 21 mmol/L (22-29) L 07/22/22 03:49 Anion Gap 17.6 (5-19) 07/22/22 03:49 BUN 11 mg/dL (6-20) 07/22/22 03:49 Creatinine 0.9 mg/dL (0.7-1.2) 07/22/22 03:49 GFR Calculation 90.1 mL/min (90-130) 07/22/22 03:49 Glucose 91 mg/dL (65-115) 07/22/22 03:49 Estimat Average Glucose 111 07/21/22 23:39 Hemoglobin A1c 5.5 % (4.0-6.0) 07/21/22 23:39 Calculated Osmolality 285 mOsm/kg (285-295) 07/22/22 03:49 Calcium 8.9 mg/dL (8.5-10.5) 07/22/22 03:49 Total Bilirubin 0.6 mg/dL (0.15-1.2) 07/22/22 03:49 AST 55 U/L (0-40) H 07/22/22 03:49 ALT 40 U/L (0-41) 07/22/22 03:49 Alkaline Phosphatase 62 U/L (40-130) 07/22/22 03:49 Total Protein 6.8 g/dL (6.6-8.7) 07/22/22 03:49 Albumin 3.7 g/dL (3.5-5.2) 07/22/22 03:49 Globulin 3.1 g/dL (1.3-4.6) 07/22/22 03:49 Triglycerides 26 mg/dL (0-150) 07/22/22 03:49 Cholesterol 107 mg/dL (0-200) 07/22/22 03:49 LDL Cholesterol, Calc 55 mg/dL (50-129) 07/22/22 03:49 HDL Cholesterol 47 mg/dL (60-100) L 07/22/22 03:49 LDL/HDL Ratio 1.17 RATIO (0.00-3.22) 07/22/22 03:49 Cholesterol/HDL Ratio 2.28 mg/dL (1.0-5.00) 07/22/22 03:49 Salicylates < 0.3 mg/dL (3-10) L 07/21/22 23:39 Urine Opiates Screen Negative ng/mL (Negative) 07/22/22 00:05 Acetaminophen < 5.0 ug/mL (10-30) L 07/21/22 23:39 Ur Barbiturates Screen Negative ng/mL (Negative) 07/22/22 00:05 Ur Phencyclidine Scrn Negative ng/mL (Negative) 07/22/22 00:05 Ur Amphetamines Screen Positive ng/mL (Negative) H 07/22/22 00:05 U Benzodiazepines Scrn Negative ng/mL (Negative) 07/22/22 00:05 Urine Cocaine Screen Negative ng/mL (Negative) 07/22/22 00:05 U Marijuana (THC) Screen Negative ng/mL (Negative) 07/22/22 00:05 Ethyl Alcohol < 10 mg/dL (0-10) 07/21/22 23:39 HIV 1&2 Ab & HIV 1 Ag Non-reactive (Non-Reactiv) 07/22/22 03:49 HIV 1&2 Antibody Non-reactive (Non-Reactiv) 07/22/22 03:49 Micro: Microbiology 07/22/22 03:51 Blood Culture - Preliminary Blood SPECIMEN COLLECTED 07/22/22 03:49 Blood Culture - Preliminary Blood SPECIMEN COLLECTED A&P Assessment and plan (1) Substance abuse: (2) Stroke: Plan 46-year-old male with a past medical history of substance abuse, presenting today with witnessed ingestion of unknown substances followed by combative confused behavior. Urine tox screen here is positive for methamphetamines which may be contributing to his mental status. He did receive doses of Ativan, Versed and Haldol in route to the ER by EMS. Upon presentation here he was calm, somnolent, vitals otherwise stable. CT of the head was performed to evaluate for any head trauma, while the study was negative for same it did reveal a small focus of hypoattenuation along the right posterior temporal occipital region concerning for evolving acute infarct or underlying edema. At this present time unable to follow-up full neuro exam, however doubt that the small focus of stroke would be contributing to his overall somnolence. This may be more related to the sedating medications that he received on the way and acute intoxication. Once patient is more awake will be able to assess for any focal neurological deficits. Admit to the ICU Hemodynamically currently stable. Start aspirin 81 mg p.o. daily and atorvastatin when awake check carotid duplex and echo check blood cx given h/o IVDU IVF NS @ 75 cc/hr Attestations Medical Necessity Statement*: anticipate > 2 midnight admission for above management Coding Level of Care Code Acute Child Care Counselor for Que To Diagnoses Substance abuse F19.10 Stroke I63.9
--- NOTE | 2022-07-22 08:39 | PC.PHAR ---
pt states he takes no rx medications-ext med history shows 09/08/2021 was the last time meds were filled
[2022-07-22 08:41] LABS: Hepatitis A Antibody IgM Non-Reactive (Nonreactive); Hepatitis B Core IgM Non-Reactive (Nonreactive); Hepatitis B Surface Antigen Non-Reactive (Nonreactive)
[2022-07-22 09:31] LABS: Hepatitis C Virus Antibody Reactive (Nonreactive)
--- NOTE | 2022-07-22 09:38 | PC.CHAP ---
Pastoral Care Encounter/Spiritual Assessment Type of Contact [] Declined multiple cut off saw operator visit [] Patient/Family/Request visit [] Outpatient visit [] Follow-up visit [] Physician referral [] Code/Alert [x] Routine visit [] Staff referral [] Actively dying [x] Patient sleeping [] Family support [] [] Out of room [] Palliative care [] [] Receiving care in room [] Pre-surgical visit [] Trauma [] Long length of stay [x] ICU visit [] Other: Relational/Emotional Strength [] Patient feels connected with others/family/visitors/staff [] Distress [] Loneliness/isolation [] Abandonment Spirituality of Patient [] Person of Ayesha [] Attends Mandaen of their Ayesha [] Believes in Prayer [] Reads Bible or Yazidi materials [] There are Spiritual issues to be addressed Services Program Manager Interventions [x] Prayer [] Active listening [] Non-anxious presence [] Spiritual/emotional support [] Crisis/trauma care [] Spiritual counseling [] Bereavement support [] Provided bereavement packet [] Provided Bible/devotional materials [] Provided toy/stuffed animal, coloring book to patient or family member [] Provided Communion [] Anointing/[place] [] Salvation [x] Completed spiritual assessment [] Other: Impact on Illness or Injury [] Angry [] Fearful [] Anxious [] Often cries [] Exhaustion [] Unable to work [] Unable to attend congregational [] Unable to walk/stand [] Unable to read [] Unable to drive [] Unable to eat/drink [] Unable to sleep [] Unable to be with family [] Patient intubated [] Other: Summary Time spent with patient
[2022-07-22] MEDS: aspirin 81 mg EC Tablet PO (09:42)
--- NOTE | 2022-07-22 11:05 | PC.NURSE ---
Patient gave verbal consent to update Maame Whitaker who is his sister. Family updated on condition and had no questions at this time.
--- NOTE | 2022-07-22 11:15 | PM.PN ---
Subjective Subjective: Patient was seen multiple times this morning, he is alert oriented x3, follows all commands, no discernible focal neurologic deficits, he does report methamphetamine use, yesterday, denies any other drug use, he does report intermittent blurry vision, but he has had this for some period of time, he is surprised with our findings of stroke, but does report recent unsteadiness on his feet, passes bedside swallow evaluation, he still remains quite sleepy, prefers to go back to sleep, currently living with his girlfriend Vitals/I&O/Wt Last Vital Signs Temp 97.8 F 07/22/22 03:01 Pulse 85 07/22/22 10:40 Resp 15 07/22/22 10:20 BP 129/83 07/22/22 10:40 Pulse Ox 97 07/22/22 10:40 O2 Del Method 07/22/22 10:40 07/21/22 07/22/22 07/22/22 22:59 06:59 14:59 Intake Total 1000 / 1000 Output Total 0 / 0 Balance 1000 / 1000 Weight last 48 hrs Weight 80.513 kg Weight 72.575 kg Physical Exam Const: COMMON NORMALS: no acute distress and patient oriented x3 Resp: COMMON NORMALS: normal respiratory effort, No retractions, No use of accessory muscles and clear to auscultation bilaterally AUSCULTATION: clear to auscultation bilaterally Cardio: COMMON NORMALS: regular rate, regular rhythm, S1 normal heart sound present and S2 normal heart sound present RATE: regular rate RHYTHM: regular rhythm HEART SOUNDS: S1 normal heart sound present and S2 normal heart sound present GI: COMMON NORMALS: Normal to inspection, nondistended, normoactive bowel sounds present, Soft to palpation, non-tender, No hepatosplenomegaly present, no masses and no bruits PALPATION: Yes Soft to palpation and Yes No hepatosplenomegaly present Extremity: COMMON NORMALS: no pedal edema Neuro: COMMON NORMALS: patient oriented x3, CN's II-XII intact bilaterally, moves all extremities, no focal motor deficits and no sensory deficits noted Psych: COMMON NORMALS: mental status grossly normal Data : 07/21/22 23:39 07/22/22 03:49 Micro: Microbiology 07/22/22 03:51 Blood Culture - Preliminary Blood SPECIMEN COLLECTED 07/22/22 03:49 Blood Culture - Preliminary Blood SPECIMEN COLLECTED A&P Assessment and plan (1) Stroke: (2) Substance abuse: (3) Altered mental status: (4) Amphetamine abuse: Plan Acute encephalopathy -Resolving -Likely secondary to methamphetamine use -In addition received Ativan, Versed, Haldol which is now slowly wearing off -Continue to monitor mentation, neurochecks, NIH stroke scale Small focus of hypoattenuation along the right posterior temporal occipital region concerning for evolving acute infarct or underlying edema -Does report intermittent blurry vision, for some time, unsteadiness on his feet -No history of CVA in the past -No history of IV drug abuse -Does have a history of alcohol use in the past, reports methamphetamine use -We will discuss with neurology -Cardiac echo, carotid artery ultrasound -Continue aspirin, statin, IV fluids -Neurochecks, NIH stroke scale, -We will moved to general medical floors -telemetric monitoring -Monitor blood cultures -Full code -Lovenox for DVT prophylaxis Attestations Medical Necessity Statement*: Patient requires hospitalization, for acute encephalopathy, methamphetamine positive, with findings of acute CVA Coding Level of Care Code Acute Textile Designs Sales Representative for Que To Diagnoses Stroke I63.9 Substance abuse F19.10 Altered mental status R41.82 Amphetamine abuse F15.10
[2022-07-22 13:28] LABS: Erythrocyte Sedimentation Rate 16 mm/hr (0-10)
--- NOTE | 2022-07-22 15:49 | PC.NURSE ---
1540- Patient transferred to second floor room 250-1. Patient resting in bed at time of transfer with nurse at bedside. Patient had no complaints at that time. Patient belongings at bedside and paper chart left with staff at front end drupal developer.
[2022-07-22] MEDS: atorvastatin 40 mg Tablet 20 MG PO (19:50)
[2022-07-23] VITALS: BP 116/79; PULSE 92; RESP 17; TEMP 36.6; O2SAT 97
[2022-07-23 04:00] VITALS: BP 117/76; PULSE 92; RESP 16; TEMP 36.8; O2SAT 100
[2022-07-23 04:07] LABS: Basophils % 0.3 %; Eosinophils # 0.2 10^3/uL (0.0-0.8); Eosinophils % 2.5 %; Hematocrit 45.5 % (42.0-52.0); Hemoglobin 14.9 g/dL (11.7-16.6); Lymphocytes # 2.3 10^3/uL (0.8-4.8); Mean Corpuscular HGB Conc 32.7 g/dL (30.0-36.0); Mean Corpuscular Hemoglobin 30.4 pg (28.0-34.0); Mean Corpuscular Volume 92.9 fl (80-94); Mean Platelet Volume 10.5 fL (7.4-10.4); Monocytes # 0.6 10^3/uL (0.2-0.9); Monocytes % 9.7 %; Neutrophils # 3.07 10^3/uL (1.8-7.7); Neutrophils % 50.2 %; Nucleated Red Blood Cells % 0 %; Platelet Count 257 10^3/cmm (130-400); Red Cell Distribution Width 12.3 % (12.1-15.1); White Blood Count 6.1 10^3/uL (4.0-10.0)
[2022-07-23 04:28] LABS: Chol HDL Ratio 2.22 mg/dL (1.0-5.00); Cholesterol 109 mg/dL (0-200); HDL Cholesterol 49 mg/dL (60-100); LDL Cholesterol Calculated 53 mg/dL (50-129); LDL HDL Ratio 1.08 RATIO (0.00-3.22); Triglycerides 35 mg/dL (0-150)
[2022-07-23 06:00] VITALS: PULSE 95
--- NOTE | 2022-07-23 06:00 | USCV_ITS ---
Sherman Ava Age: 46 Gender: M : 1975 Exam Date: 07/23/2022 07:19 Ordering Phys: Dara Abrams MD Technologist: BERLIN Exam Location: [facility] [place] Indication: STROKE Risk Factors: Previous Vascular Surgery: Right Brachial BP: / Left Brachial BP: / Right Left Velocity (cm/s) Spectral Plaque Velocity (cm/s) Spectral Plaque Syst/Diast Broadening Syst/Diast Broadening 93.70/ 24.30 Prox CCA 90.10 / 21.00 67.60/ 28.10 Mid CCA 69.10 / 22.50 66.60/ 23.90 Distal CCA 67.60 / 21.80 55.50/ 18.30 Prox ICA 54.40 / 23.30 60.90/ 29.10 Mid ICA 63.70 / 31.10 64.30/ 35.80 Distal ICA 63.70 / 38.10 51.50 ECA 58.30 0.69 ICA/CCA 0.71 Antegrade Vertebral Antegrade 41.20/ 18.60 cm/s 48.20/ 19.40 cm/s Tri Subclavian Tri 90.90 94.80 CONCLUSIONS Right ICA stenosis <50%. Left ICA stenosis <50%. Normal antegrade Doppler flow noted in the right vertebral artery. Normal antegrade Doppler flow noted in the left vertebral artery. Hansel Fournier MD (Electronically Signed) Final Date: 23 July 2022 09:03 S
--- NOTE | 2022-07-23 06:00 | USCV_ITS ---
Ava Whitaker Age: 46 Gender: M : 1975 Exam Date: 07/23/2022 07:33 Ordering Phys: Dara Abrams MD Technologist: BERLIN Exam Location: [facility] [place] Indication: STROKE BP: 117 / 76 HR: 68 Rhythm: Sinus Technical Quality: Adequate MEASUREMENTS (Male / Female) Normal Values 2D ECHO LVOT Diameter 2.0 cm LV Ejection Fraction MOD 2C 33.7 % LV Ejection Fraction 2C AL 32.6 % LA Diameter 3.5 cm LA Width 3.9 cm LA Height 4.2 cm RA Width 2.9 cm RA Height 5.0 cm Aorta at Sinotubular Diameter 3.0 cm M-MODE Aortic Annulus Diameter 3.2 cm LA Ao Ratio MM 1.1 MV E Point Septal Separation 2.1 cm DOPPLER AV Peak Velocity 105.0 cm/s LVOT Peak Velocity 89.0 cm/s AV Area Cont Eq vti 2.7 cm squared AV Area Cont Eq pk 2.7 cm squared MV Peak Velocity 82.0 cm/s MV Area PHT 3.3 cm squared Mitral E to A Ratio 0.7 MV E' Velocity 28.5 cm/s Mitral E to MV E' Ratio 8.9 Mitral E to LV E' Lateral Ratio 8.7 Mitral E to LV E' Septal Ratio 9.2 TR Peak Velocity 194.3 cm/s TR Peak Gradient 15.1 mmHg TR Mean Velocity 158.7 cm/s TR Mean Gradient 10.7 mmHg TR Velocity Time Integral 53.6 cm TV Peak E Velocity 51.0 cm/s Right Atrial Pressure 8.0 mmHg Pulmonary Artery Systolic Pressu 23.1 mmHg RV Acceleration Time 0.1 s RV Ejection Time 0.3 s RV AcT/ET 0.4 FINDINGS Left Ventricle Moderately increased left ventricular cavity size. Normal left ventricular wall thickness. Moderately decreased left ventricular systolic function. Global left ventricular hypokinesis. Left ventricular ejection fraction is estimated at 38 %. Grade I/IV diastolic dysfunction (abnormal relaxation filling pattern), normal to mildly elevated filling pressures. Right Ventricle Normal right ventricular size and systolic function. Normal right ventricular systolic pressure. Right Atrium The right atrium is normal in size. Left Atrium Mildly increased left atrial size. Mitral Valve Structurally normal mitral valve. Mild mitral valve regurgitation. Aortic Valve Structurally normal aortic valve without significant sclerosis or stenosis. There is no aortic regurgitation. Tricuspid Valve Structurally normal tricuspid valve. Trace tricuspid valve regurgitation. Pulmonic Valve Pulmonic valve not well visualized. Pericardium Normal pericardium without effusion. Aorta Normal ascending aorta dimension. IVC The inferior vena cava appears normal. CONCLUSIONS Moderately increased left ventricular cavity size. Normal left ventricular wall thickness. Moderately decreased left ventricular systolic function. Global left ventricular hypokinesis. Left ventricular ejection fraction is estimated at 38 %. Grade I/IV diastolic dysfunction (abnormal relaxation filling pattern), normal to mildly elevated filling pressures. Mildly increased left atrial size. Structurally normal mitral valve. Mild mitral valve regurgitation. No evidence for valvular vegetations. No prior study. Dr. Reji Munoz MD (Electronically Signed) Final Date: 23 July 2022 09:08 S
[2022-07-23 07:13] VITALS: BP 122/79; PULSE 75; RESP 17; TEMP 36.6; O2SAT 97
[2022-07-23 08:43] VITALS: PULSE 100; RESP 18; O2SAT 95
[2022-07-23] MEDS: aspirin 81 mg EC Tablet PO (08:46)
--- NOTE | 2022-07-23 09:30 | PM.DCS ---
Discharge Providers Date of Admission: 07/22/22 02:28 Date of Discharge: July 23, 2022 Attending Provider at Admission: Dara Abrams MD Attending Provider at Discharge: Hermilo Chan MD Diagnoses at Discharge Discharge Diagnosis (1) Stroke: Status: Acute (2) Substance abuse: Status: Acute (3) Altered mental status: Status: Acute (4) Amphetamine abuse: Status: Acute Reason for Visit Reason for Visit: possible ingestion Hospital Course Hospital Course This is a 46-year-old male with a past medical history of substance abuse, IV drug abuse, hepatitis C, which was treated according to him, who presents to [facility] for altered mental status Patient presented to [facility] for altered mental status secondary to methamphetamine abuse, received IV fluids, clinically monitored, mentation significantly improved, back to baseline, alert oriented x3, discharged home, advised to abstain from drug use and alcohol use Patient was found to have CT evidence of CVA on admission, chronicity unknown, likely related to his drug use Small focus of hypoattenuation and loss of singh-white matter differentiation along the right posterior temporal/temporooccipital region concerning for evolving acute infarction or underlying edema.? The presence of artifacts cannot be excluded.? If there is clinical concern, MRI of the brain can be performed for further evaluation.? No evidence of acute intracranial hemorrhage. -However given his history of IV drug abuse, there was concerns for infectious etiology behind CVA, such as mycotic aneurysm, however his mentation improved, he remained afebrile, blood cultures remain unremarkable, transthoracic echocardiogram did not show any significant evidence of valvular vegetations -Patient will be discharged with aspirin, statin -Strongly advised to abstain from any alcohol or drug abuse -I have him scheduled to follow with Dr. Rouse sometime within the week ? On cardiac echocardiogram imaging patient was found to have ?Moderately increased left ventricular cavity size. Normal left ?ventricular wall thickness. Moderately decreased left ?ventricular systolic function. Global left ventricular ?hypokinesis. Left ventricular ejection fraction is estimated at ?38 %. Grade I/IV diastolic dysfunction (abnormal relaxation ?filling pattern), normal to mildly elevated filling pressures. ?Mildly increased left atrial size. ?Structurally normal mitral valve. Mild mitral valve ?regurgitation. ?No evidence for valvular vegetations. ?No prior study. -He had no chest pain complaints, no shortness of breath complaints -Discharged on aspirin, statin -His diminished ejection fraction, and global hypokinesis is likely related to his methamphetamine abuse -Advised to abstain from drugs -We will have him follow-up with cardiology in the next week -If any chest pain or palpitations to go to the emergency room Physical Exam Const: COMMON NORMALS: no acute distress and patient oriented x3 Resp: COMMON NORMALS: normal respiratory effort, No retractions, No use of accessory muscles and clear to auscultation bilaterally AUSCULTATION: clear to auscultation bilaterally Cardio: COMMON NORMALS: regular rate, regular rhythm, S1 normal heart sound present and S2 normal heart sound present RATE: regular rate RHYTHM: regular rhythm HEART SOUNDS: S1 normal heart sound present and S2 normal heart sound present GI: COMMON NORMALS: Normal to inspection, nondistended, normoactive bowel sounds present and non-tender Extremity: COMMON NORMALS: no pedal edema Neuro: COMMON NORMALS: patient oriented x3 Psych: COMMON NORMALS: mental status grossly normal Discharge Data Studies Completed and Pending Completed Studies During Hospitalization Category Date Time Status CT head wo con* [id number] Stat Cat Scan 07/21/22 23:31 Completed CXRP [XR chest 1V portable [id number]] Stat Exams 07/21/22 23:55 Completed CV carotid duplex BI* [id number] Routine Ultrasound 07/23/22 06:00 Completed CV. echo complete* [id number] Routine Ultrasound 07/23/22 06:00 Completed Pending at discharge Category Date Time Status CAROLINE Profile Rheumatology Stat Lab 07/22/22 13:05 Received Blood Culture AM LABS Lab 07/22/22 03:51 Results Hepatitis C RNA Viral Load Qnt Routine Lab 07/22/22 09:31 Received Troponin(5th) 2 Hour. Timed Lab 07/23/22 11:26 Ordered Troponin(5th) 6 hour. Timed Lab 07/23/22 15:26 Ordered Troponin(5th) Baseline Stat Lab 07/23/22 09:26 Ordered Radiology Impressions Head CT 07/21/22 23:31 IMPRESSION: 1. Small focus of hypoattenuation and loss of singh-white matter differentiation along the right posterior temporal/temporooccipital region concerning for evolving acute infarction or underlying edema. The presence of artifacts cannot be excluded. If there is clinical concern, MRI of the brain can be performed for further evaluation. No evidence of acute intracranial hemorrhage. Communication Dr. Harrington by Dr. Boateng on 07/22/2022 at 12:05 a.m. Chest X-Ray 07/21/22 23:55 IMPRESSION: No acute radiographic findings in the chest. Laboratory Results WBC 6.1 10^3/uL (4.0-10.0) 07/23/22 03:20 RBC 4.90 10^6/uL (4.1-5.3) 07/23/22 03:20 Hgb 14.9 g/dL (11.7-16.6) 07/23/22 03:20 Hct 45.5 % (42.0-52.0) 07/23/22 03:20 MCV 92.9 fl (80-94) 07/23/22 03:20 MCH 30.4 pg (28.0-34.0) 07/23/22 03:20 MCHC 32.7 g/dL (30.0-36.0) 07/23/22 03:20 RDW 12.3 % (12.1-15.1) 07/23/22 03:20 Plt Count 257 10^3/cmm (130-400) 07/23/22 03:20 MPV 10.5 fL (7.4-10.4) H 07/23/22 03:20 Neut % (Auto) 50.2 % 07/23/22 03:20 Lymph % (Auto) 37.0 % 07/23/22 03:20 Nance % (Auto) 9.7 % 07/23/22 03:20 Eos % (Auto) 2.5 % 07/23/22 03:20 Baso % (Auto) 0.3 % 07/23/22 03:20 Neut # (Auto) 3.07 10^3/uL (1.8-7.7) 07/23/22 03:20 Lymph # (Auto) 2.3 10^3/uL (0.8-4.8) 07/23/22 03:20 Nance # (Auto) 0.6 10^3/uL (0.2-0.9) 07/23/22 03:20 Eos # (Auto) 0.2 10^3/uL (0.0-0.8) 07/23/22 03:20 Baso # (Auto) 0.0 10^3/uL (0.0-0.1) 07/23/22 03:20 Nucleated RBC % (auto) 0 % 07/23/22 03:20 Nucleated RBCs # 0.0 /100WBC 07/23/22 03:20 ESR 16 mm/hr (0-10) H 07/22/22 13:05 Sodium 138 mmol/L (136-145) 07/22/22 03:49 Potassium 3.6 mmol/L (3.5-5.1) 07/22/22 03:49 Chloride 103 mmol/L (98-107) 07/22/22 03:49 Carbon Dioxide 21 mmol/L (22-29) L 07/22/22 03:49 Anion Gap 17.6 (5-19) 07/22/22 03:49 BUN 11 mg/dL (6-20) 07/22/22 03:49 Creatinine 0.9 mg/dL (0.7-1.2) 07/22/22 03:49 GFR Calculation 90.1 mL/min (90-130) 07/22/22 03:49 Glucose 91 mg/dL (65-115) 07/22/22 03:49 Estimat Average Glucose 111 07/21/22 23:39 Hemoglobin A1c 5.5 % (4.0-6.0) 07/21/22 23:39 Calculated Osmolality 285 mOsm/kg (285-295) 07/22/22 03:49 Calcium 8.9 mg/dL (8.5-10.5) 07/22/22 03:49 Total Bilirubin 0.6 mg/dL (0.15-1.2) 07/22/22 03:49 AST 55 U/L (0-40) H 07/22/22 03:49 ALT 40 U/L (0-41) 07/22/22 03:49 Alkaline Phosphatase 62 U/L (40-130) 07/22/22 03:49 Total Protein 6.8 g/dL (6.6-8.7) 07/22/22 03:49 Albumin 3.7 g/dL (3.5-5.2) 07/22/22 03:49 Globulin 3.1 g/dL (1.3-4.6) 07/22/22 03:49 Triglycerides 35 mg/dL (0-150) 07/23/22 03:20 Cholesterol 109 mg/dL (0-200) 07/23/22 03:20 LDL Cholesterol, Calc 53 mg/dL (50-129) 07/23/22 03:20 HDL Cholesterol 49 mg/dL (60-100) L 07/23/22 03:20 LDL/HDL Ratio 1.08 RATIO (0.00-3.22) 07/23/22 03:20 Cholesterol/HDL Ratio 2.22 mg/dL (1.0-5.00) 07/23/22 03:20 Salicylates < 0.3 mg/dL (3-10) L 07/21/22 23:39 Urine Opiates Screen Negative ng/mL (Negative) 07/22/22 00:05 Acetaminophen < 5.0 ug/mL (10-30) L 07/21/22 23:39 Ur Barbiturates Screen Negative ng/mL (Negative) 07/22/22 00:05 Ur Phencyclidine Scrn Negative ng/mL (Negative) 07/22/22 00:05 Ur Amphetamines Screen Positive ng/mL (Negative) H 07/22/22 00:05 U Benzodiazepines Scrn Negative ng/mL (Negative) 07/22/22 00:05 Urine Cocaine Screen Negative ng/mL (Negative) 07/22/22 00:05 U Marijuana (THC) Screen Negative ng/mL (Negative) 07/22/22 00:05 Ethyl Alcohol < 10 mg/dL (0-10) 07/21/22 23:39 Rheumatoid Factor 10.0 IU/mL (0-14) 07/22/22 13:05 Hepatitis A IgM Ab Non-reactive (Nonreactive) 07/22/22 03:47 Hep Bs Antigen Non-reactive (Nonreactive) 07/22/22 03:47 Hep B Core IgM Ab Non-reactive (Nonreactive) 07/22/22 03:47 Hepatitis C Antibody Reactive (Nonreactive) H 07/22/22 03:47 HIV 1&2 Ab & HIV 1 Ag Non-reactive (Non-Reactiv) 07/22/22 03:49 HIV 1&2 Antibody Non-reactive (Non-Reactiv) 07/22/22 03:49 Vitals Last Vital Signs Temp 97.8 F 07/23/22 07:13 Pulse 100 07/23/22 08:43 Resp 18 07/23/22 08:43 BP 122/79 07/23/22 07:13 Pulse Ox 95 07/23/22 08:43 O2 Del Method 07/23/22 08:43 Discharge Plan Discharge Patient Disposition: Home Condition: Stable Prescriptions: New aspirin 81 mg Tablet,Delayed Release (Dr/Ec) 81 mg PO DAILY 30 Days Qty: 30 0RF atorvastatin 40 mg Tablet 40 mg PO BEDTIME 30 Days Qty: 30 0RF No Action No Known Home Medications Discharge Orders: Discharge Order (Routine); Ordered 07/23/22 Ordered By: Hermilo Chan Referrals: Rhonda Rouse MD [Physician] - 07/24/22 10:15 am (acute cva) Cristiane Prince MD [Physician] - 4-7 days Dara Abrams MD [Hospitalist] - 4-7 days (Dr. Abrams's office will call you with your appointment date and time. ) Blanco Amaro MD [Physician] - 07/25/22 8:00 am Discharge Diet: Regular Discharge Activity: Resume usual activity Patient Instructions: Congestive Heart Failure, Ischemic Stroke (DC), Methamphetamine Use Disorder (DC), Stroke (DC), Opioid Safety Activity Restrictions/Additional Instructions: - Please abstain from drug use -Please take aspirin, statin as prescribed -Please follow-up with infectious disease for hepatitis C -Please follow-up with neurology for acute CVA -for your decreased heart function abstain from drug use Discharge Attestations Time Spent in Discharge Care*: less than 30 min Quality Metrics Clinical Quality Measures [ No reported AMI, CVA or VTE this stay] Coding Level of Care Code Acute Chg FW DC note Diagnoses Stroke I63.9 Substance abuse F19.10 Altered mental status R41.82 Amphetamine abuse F15.10
[2022-07-23 10:18] LABS: Troponin(5th) Baseline 9 ng/L (0-15)
[2022-07-23 11:13] VITALS: BP 119/80; PULSE 74; RESP 18; TEMP 36.4; O2SAT 99
--- NOTE | 2022-07-23 11:26 | ECG_ITS ---
[facility] Test Date: 2022-07-23 Pat Name: Ava Whitaker Department: Room: 250 Gender: Male Substance Abuse Rn: : 1975 Requested By: Hermilo Chan Order Number: [id number] Fina MD: Jayda Gonzalez M.D. Measurements Intervals [place] Rate: 76 P: 52 PA: 161 QRS: -3 QRSD: 95 T: -13 QT: 374 QTc: 421 Interpretive Statements SINUS RHYTHM NONSPECIFIC T-WAVE ABNORMALITY Compared to ECG 07/21/2022 23:34:23 Sinus tachycardia no longer present T-wave abnormality still present Electronically Signed On 07-23-2022 12:13:43 CDT by Jayda Gonzalez M.D. [email or web address]
[2022-07-23 11:56] LABS: Troponin 5 2HR 8.29 ng/L (0-15)
[2022-07-23 12:43] LABS: COMPLEMENT, TOTAL (CH50) >60 U/mL (31-60)
[2022-07-23 12:53] LABS: Troponin 5 2HR Delta -0.71 ABS# (0-10)
[2022-07-23 13:26] LABS: COMPLEMENT COMPONENT C3C 126 mg/dL (82-185); COMPLEMENT COMPONENT C4C 24 mg/dL (15-53)
--- NOTE | 2022-07-23 14:53 | PC.NURSE ---
Patient not in room and per other nursing staff was possibly seen going out back stare well. Attempted to call contact in the chart with no answer. Dr. Chan notified.
[2022-07-23 16:16] LABS: THYROID PEROXIDASE ANTIBODIES 1 IU/mL (<9)
[2022-07-24 10:03] LABS: CENTROMERE B ANTIBODY <1.0 NEG AI (<1.0 NEG); JO-1 ANTIBODY <1.0 NEG AI (<1.0 NEG); RNP ANTIBODY <1.0 NEG AI (<1.0 NEG); SCL-70 ANTIBODY <1.0 NEG AI (<1.0 NEG); SJOGREN'S ANTIBODY (SS-A) <1.0 NEG AI (<1.0 NEG); SM ANTIBODY <1.0 NEG AI (<1.0 NEG); SS-B <1.0 NEG AI (<1.0 NEG)
[2022-07-24 16:17] LABS: ANA SCREEN, IFA NEGATIVE (NEGATIVE)
[2022-07-24 22:32] LABS: HEP C RNA Viral Load Quant <1.18 NOT DETECTED Log IU/mL (NOT DETECTED); HEP C RNA Viral Load Quant <15 NOT DETECTED IU/mL (NOT DETECTED)
[2022-07-29 15:23] LABS: DNA AB (DS) CRITHIDIA,IFA NEGATIVE (NEGATIVE)
== END 2022-07-23 14:55 | disposition home or self-care (01) | DRG 64 ==
LOC: ER 07-22 01:25 → ICU 07-22 02:10 → MEDSURG 07-22 15:59
PROVIDERS: Admitting Provider Student in an Organized Health Care Education/Training Program; Emergency Provider Emergency Medicine; Visit Provider Family Medicine
DX: I63.9 Cerebral infarction, unspecified (principal); G92.8 Other toxic encephalopathy; T43.651A Poisoning by methamphetamines accidental (unintentional), initial encounter; F15.129 Other stimulant abuse with intoxication, unspecified; R29.710 NIHSS score 10; R41.82 Altered mental status, unspecified; R74.01 Elevation of levels of liver transaminase levels; H53.8 Other visual disturbances; R26.81 Unsteadiness on feet; R93.1 Abnormal findings on diagnostic imaging of heart and coronary circulation; Z86.19 Personal history of other infectious and parasitic diseases
CPT/HCPCS: 36415; 51701; 70450; 71045; 80053; 80061; 80074; 80306; 80307; 83036; 84484; 85025; 85651; 86160; 86162; 86235; 86255; 86376; 86431; 87040; 87522; 87806; 92523; 92610; 93005; 93306; 93880; 97161; 97165; 97530; 99285; J7030

== ENCOUNTER → 2022-07-29 09:53 | Outpatient (BNVA) | payer MEDICAID, SELFPAY | PROVIDERS: Visit Provider Specialist | DX: I69.398 Other sequelae of cerebral infarction (principal); R20.9 Unspecified disturbances of skin sensation; I42.9 Cardiomyopathy, unspecified; F15.19 Other stimulant abuse with unspecified stimulant-induced disorder; Z87.891 Personal history of nicotine dependence | CPT/HCPCS: 99205 ==

== ENCOUNTER → 2022-07-31 11:38 | Outpatient (BNVA) | payer MEDICAID, SELFPAY | PROVIDERS: Visit Provider Family Medicine | DX: R30.0 Dysuria (principal); N40.0 Benign prostatic hyperplasia without lower urinary tract symptoms; I63.511 Cerebral infarction due to unspecified occlusion or stenosis of right middle cerebral artery; F19.10 Other psychoactive substance abuse, uncomplicated; F15.10 Other stimulant abuse, uncomplicated; B19.20 Unspecified viral hepatitis C without hepatic coma; I42.9 Cardiomyopathy, unspecified; F17.201 Nicotine dependence, unspecified, in remission | CPT/HCPCS: 81000; 84153 ==

== ENCOUNTER → 2022-08-27 10:00 | Outpatient (BNVA) | payer MEDICAID, SELFPAY | PROVIDERS: PCP Family Medicine; Referring Provider Specialist; Visit Provider Specialist | DX: R56.9 Unspecified convulsions (principal) | CPT/HCPCS: 95812; 95816 ==

== ENCOUNTER → 2022-09-24 13:38 | Outpatient (BNVA) | payer MEDICAID, SELFPAY | PROVIDERS: PCP Family Medicine; Visit Provider Internal Medicine Cardiovascular Disease | DX: I42.9 Cardiomyopathy, unspecified (principal); R00.2 Palpitations; B19.20 Unspecified viral hepatitis C without hepatic coma; F15.10 Other stimulant abuse, uncomplicated; E78.5 Hyperlipidemia, unspecified; Z86.73 Personal history of transient ischemic attack (TIA), and cerebral infarction without residual deficits; F17.210 Nicotine dependence, cigarettes, uncomplicated | CPT/HCPCS: 93270; 99204 ==

== ENCOUNTER → 2022-09-25 07:27 | Outpatient (BNVA) | payer MEDICAID, SELFPAY | PROVIDERS: PCP Family Medicine; Referring Provider Specialist; Visit Provider Specialist | DX: R56.9 Unspecified convulsions (principal) | CPT/HCPCS: 95812 ==

== ENCOUNTER 2022-09-26 11:35 | Outpatient (CLI) | payer MEDICAID, SELFPAY ==
--- NOTE | 2022-09-26 11:30 | MR_ITS ---
WS: [id number] MRA HEAD TECHNIQUE: Axial 3-D TOF images obtained with axial images and axial, sagittal, and coronal 2-D refor matted images. CLINICAL INFORMATION: Z09 - Encounter for follow-up examination after completed... COMPARISON: CT July 21, 2022 FINDINGS: Distal vertebral arteries are patent. Basilar artery is patent. Normal vascularity to the [employer] territo ry bilaterally. Both ICAs are patent at the skull base. Patent communicating artery. Normal vascularity to the SHAD te rritory. Absent LEFT A1 segment. Normal vascularity to the LEFT MCA territory. No evidence of flow-li miting stenosis or aneurysm. MR/MR angio head wo con [id number] IMPRESSION: 1. No evidence of flow-limiting stenosis or aneurysm. 2. Congenital absence LEFT A1 segment
--- NOTE | 2022-09-26 11:45 | MR_ITS ---
WS: [id number] MRI HEAD WITHOUT CONTRAST TECHNIQUE: Sagittal T1, T2 axial, T2 axial FLAIR, axial and coronal T1 images, axial susceptibility w eighted imaging, axial diffusion weighted images, and coronal T2 images were obtained. High-resolutio n coronal T2 and FLAIR imaging with attention to the temporal lobes obtained CLINICAL INFORMATION: Z09 - Encounter for follow-up examination after completed... COMPARISON: CT July 21, 2022 FINDINGS: There is a described area of low-attenuation in the prior PET/CT likely due to volume avera ging artifact. No abnormalities in this area on the MRI today. No evidence of restricted diffusion to suggest acute ischemia. Ventricular system and basal cisterns are patent. Normal posterior fossa. Normal vascular flow voids at the skull base. No extra-axial flui d collections. No evidence of mass or mass effect. Mild mucosal thickening in the ethmoid air cells. Mild patchy supratentorial white matter changes can be seen with hypertension, diabetes or migraine h eadaches. No significant parenchymal volume loss. No hemosiderin on susceptibly weighted images. Normal optic chiasm and pituitary infundibulum. Incidental tiny pineal cyst 5 mm. Temporal lobes and hippocampal formations are normal in appearance. Normal cavernous sinuses and Meckel's cave. No signa l abnormalities in the mesial temporal lobes. MR/MR head wo con* [id number] IMPRESSION: 1. No evidence of restricted diffusion to suggest acute ischemia. 2. A few tiny foci of T2 hyperintensity in the supratentorial white matter of doubtful clinical significance but can be seen with hypertension, diabetes, and migraine headaches. 3. Temporal lobes and hippocampal formations are normal in appearance. No evid ence of signal abnormality in the mesial temporal lobes or hippocampal formatio ns. No significant atrophy. 4. Normal optic chiasm and pituitary infundibulum.
== END 2022-09-26 11:36 | disposition home or self-care (01) ==
PROVIDERS: PCP Family Medicine; Visit Provider Specialist
DX: Z09 Encounter for follow-up examination after completed treatment for conditions other than malignant neoplasm (principal); R29.818 Other symptoms and signs involving the nervous system
CPT/HCPCS: 70544; 70551

== ENCOUNTER → 2022-10-13 09:25 | Outpatient (BNVA) | payer MEDICAID, SELFPAY | PROVIDERS: PCP Family Medicine; Visit Provider Specialist | DX: I99.8 Other disorder of circulatory system (principal) | CPT/HCPCS: G0463 ==

== ENCOUNTER → 2022-11-10 08:43 | Outpatient (BNVA) | payer MEDICAID, SELFPAY | PROVIDERS: PCP Family Medicine; Visit Provider Specialist | DX: I99.8 Other disorder of circulatory system (principal) | CPT/HCPCS: G0463 ==

== ENCOUNTER 2022-12-18 13:00 | Emergency (ER) | payer MEDICAID, SELFPAY ==
--- NOTE | 2022-12-18 13:19 | XR_ITS ---
WS: [id number] Exam: XR foot LT min 3V* [id number] Date/Time of Exam: 12/18/2022 1:19 PM Reason For Exam: left foot pain, no injury No fracture or dislocation. No soft tissue foreign bodies are seen. Joint structures are well-maintai kimber. XR/XR foot LT min 3V* [id number] IMPRESSION: 1. No fracture or other significant finding.
--- NOTE | 2022-12-18 13:47 | ED_ITS ---
HPI - Extremity Problem General: Chief complaint: Extremity Injury, Lower Stated complaint: Left foot injury Time Seen by Provider: 12/18/22 13:19 History of Present Illness: Patient is a 47-year-old male comes to the ED with left foot pain. Patient had an injury to left foot over 2 years ago but denies any recent injury. He says his foot has been hurting on and off now for the past 2 years but over the past several days it is gotten worse. Pain is located on the lateral aspect of left foot and also on plantar region of foot. He says whenever he weightbears he feels a sharp pain in the bottom of his foot. He rates his pain 8 out of 10 with weightbearing. Associated symptoms: Deny chest pain, fever(s) or rash Review of Systems Const: Denies: fever(s), chills or fatigue Eyes: Denies: change in vision or eye discomfort ENMT: Denies: throat pain, odynophagia, nasal discharge or nasal congestion Card: Denies: chest pain, palpitations, edema, swelling of feet/ankles, dyspnea on exertion or orthopnea Resp: Denies: dyspnea, productive cough or non-productive cough GI: Denies: abdominal pain, nausea, vomiting, diarrhea, constipation or hematochezia : Denies: flank pain, difficulty urinating, dysuria or hematuria Musc: Reports: extremity pain (Left foot pain); Denies: neck pain, back pain or extremity swelling Skin/Breast: Denies: rash or new lesions Neuro: Denies: headache(s), numbness in extremities or weakness in extremities [facility] ED PFSH: Medical History Acute right arterial ischemic stroke, middle cerebral artery (MCA) Cardiomyopathy Hepatitis C History of back injury 2006, spinal fusion Intravenous drug abuse Methamphetamine abuse Substance abuse Surgical History History of hand surgery History of lymph node excision groin area Family History Grandmother Cancer breast Hypertension Mother Lung disease Other Psychiatric illness Denies family history of Diabetes CAD (coronary artery disease) Clotting disorder Dementia Hyperlipidemia Chronic kidney disease (CKD) Suicide Anesthesia complication Bleeding disorder Stroke Social History (Updated 12/08/22 @ 14:46 by Jeny Casiano LPN) Smoking and tobacco status: current every day smoker smokeless tobacco Smokeless tobacco user: chewing tobacco Quit status (tobacco): has quit using tobacco Former quit date comment: quit cigarettes on 11/19/22 Alcohol intake: former Former alcohol use details: quit 08/05/22 Desire information about alcohol rehabilitation?: No Desire information about substance/drug rehabilitation?: No Lives independently: Yes Marital status: Single Current occupational status: unemployed Current gender identity: Male Physical Exam Const: COMMON NORMALS: patient oriented x3 HENMT: COMMON NORMALS: normocephalic HEAD & SCALP: normocephalic MOUTH: Normal oral and palatal mucosa present THROAT: posterior oropharynx normal and uvula midline Neck/C-Spine: COMMON NORMALS: supple GENERAL: Yes normal visual inspection Resp: COMMON NORMALS: normal respiratory effort, No retractions, No use of accessory muscles and clear to auscultation bilaterally AUSCULTATION: clear to auscultation bilaterally Cardio: COMMON NORMALS: regular rate, regular rhythm, S1 normal heart sound present, S2 normal heart sound present, No gallops present (Cardio), No clicks present (Cardio), No murmurs present (Cardio) and Peripheral pulses 2+ throughout RATE: regular rate RHYTHM: regular rhythm HEART SOUNDS: S1 normal heart sound present and S2 normal heart sound present PERIPHERAL PULSES: Peripheral pulses 2+ throughout GI: COMMON NORMALS: Normal to inspection, nondistended, normoactive bowel sounds present, Soft to palpation, non-tender and no masses PALPATION: Yes Soft to palpation : COMMON NORMALS: Yes no CVA tenderness BLADDER/KIDNEY EXAM: Yes no CVA tenderness Back/Pelvis: COMMON NORMALS: no CVA tenderness Extremity: COMMON NORMALS: normal to inspection and full ROM NARRATIVE EXTREMITY EXAM: Left foot exam is unremarkable. Neuro: COMMON NORMALS: patient oriented x3 GAIT: Yes Normal gait present Skin: GENERAL SKIN EXAM: dry skin Course Vital Signs: Vital signs: Vital Signs Temperature 97.7 F 12/18/22 14:16 Pulse Rate 75 12/18/22 14:16 Respiratory Rate 16 12/18/22 14:16 Blood Pressure 115/80 12/18/22 14:16 Pulse Oximetry 97 12/18/22 14:16 Oxygen Delivery Me thod 12/18/22 14:16 MDM - Extremity (Nontraumatic) Medical Decision Making Patient is a 47-year-old male comes to the ED with left foot pain. Patient had an injury to left foot over 2 years ago but denies any recent injury. He says his foot has been hurting on and off now for the past 2 years but over the past several days it is gotten worse. Pain is located on the lateral aspect of left foot and also on plantar region of foot. He says whenever he weightbears he feels a sharp pain in the bottom of his foot. He rates his pain 8 out of 10 with weightbearing. Vitals are stable. Exam of left foot is unremarkable. X- ray of left foot shows no acute fractures or findings. Patient was diagnosed with left foot pain and was stable for discharge home. Told to rest, ice and elevate left foot and to follow-up with PCP within the next week for reevaluation. Return ED precautions given. Patient understood and agreed with plan. Lab Data Radiology Impressions Foot X-Ray 12/18/22 13:19 IMPRESSION: 1. No fracture or other significant finding. Discharge Plan Discharge Patient Disposition: Home Clinical Impression: Left foot pain Condition: Stable Prescriptions: No Action aspirin 81 mg tablet,delayed release (DR/EC) 81 mg PO DAILY 90 Days Qty: 90 1RF atorvastatin 40 mg tablet 40 mg PO BEDTIME 30 Days Qty: 90 1RF tamsulosin [Flomax] 0.4 mg capsule 0.4 mg PO DAILY Qty: 90 1RF Discharge Orders: Discharge ED (Routine); Ordered 12/18/22 Ordered By: Abdullahi Mitchell Referrals: Blanco Amaro MD [Primary Care Provider] - Discharge Diet: Regular Discharge Activity: Increase activity as tolerated and Use walker/crutches as instructed Activity Restrictions/Additional Instructions: Follow-up with medical provider as directed in the next 5 to 7 days for reevaluation. Rest, ice and elevate left foot. Use crutches help with ambulation for the next 2 to 3 days and slowly advance weightbearing as tolerated. Take [id number] Tylenol or ibuprofen for pain. Continue taking all home medications as previously prescribed. Return to the ER or your medical provider if condition worsens. Please read and understand discharge instructions. Thank you for choosing [facility] for your healthcare needs today. Please realize this is an emergency room and that we are providing you with a medical screening exam and this may not be complete and all inclusive of all the testing and or work up that you may need to determine your ailment or severity of your illness. It is very important that you follow up as instructed or that you return to the Emergency Department should you have concerns or if your condition changes or worsens in any way. Coding Level of Care Code ED Washcoat Wiper for Que To
--- NOTE | 2022-12-18 14:14 | PC.NURSE ---
PT REFUSES CRUTCHES STATING, I DONT NEED THEM I LL END TRIPPING FALLING AND INJURING MY OTHER FOOT .
[2022-12-18 14:16] VITALS: BP 115/80; PULSE 75; RESP 16; TEMP 36.5; O2SAT 97
== END 2022-12-18 14:18 | disposition home or self-care (01) ==
PROVIDERS: Emergency Provider Physician Assistant; PCP Family Medicine
DX: M79.672 Pain in left foot (principal); Z79.82 Long term (current) use of aspirin; F17.220 Nicotine dependence, chewing tobacco, uncomplicated; Z86.73 Personal history of transient ischemic attack (TIA), and cerebral infarction without residual deficits; Z86.19 Personal history of other infectious and parasitic diseases
CPT/HCPCS: 73630; 99283

== ENCOUNTER 2022-12-25 06:45 | Outpatient (CLI) | payer MEDICAID, SELFPAY ==
--- NOTE | 2022-12-25 | ECG_ITS ---
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 Interpretive Statements NAME OF STUDY: LEXISCAN SESTAMIBI STRESS TEST INDICATION: Cardiomyopathy, PROCEDURE: At the baseline, the EKG revealed normal sinus rhythm with some nonspecific T wave changes. Minimal left axis deviation. Voltage irregular for LVH. Possible lead V2 V3 reversal. The baseline heart was 73 bpm with a blood pressue of 128/96 mm of Hg Lexiscan was infused over a period of 20 seconds. A total of 0.4 milligrams of Lexiscan was infused. The stress phase was continued for a total of 5 minutes. Heart rate at the end of the stress phase was 94 bpm with a blood pressure 143/92 mm of Hg. The EKG at the peak infusion revealed no significant changes. Sestamibi was injected 20 seconds after the Lexiscan infusion. Heart rate at the end of the recovery phase was 82 bpm with a blood pressure of 145/91 mm of Hg. CONCLUSION: 1. No significant EKG changes with the LexiScan infusion 2. No LexiScan induced chest pain or cardiac arrhythmia 3. Normal blood pressure and heart rate response 4. Sestamibi/sestamibi perfusion scan pending; see separate report. Electronically Signed On 12-27-2022 21:57:32 CDT by Cristiane Prince M.D. [email or web address]
--- NOTE | 2022-12-25 07:42 | NMCV_ITS ---
NM rey perf SPECT r/s* [id number] Ava Whitaker Age: 47 Gender: M : 1975 Exam Date: 12/25/2022 07:42 Ordering Phys: Cristiane Prince MD ([email or web address]) Technologist: JENNIFER Costello Exam Location: [facility] Indications: CORONARY ANGIOPLASTY STATUS STRESS TEST Please see separate stress test report in [facility] for full findings IMAGE PROTOCOL Rest/Stress 1 Lexiscan Day Radiopharmaceutical Dose (mCi) Administration Site Administered by Rest: Tc-99m 10.9 IV JENNIFER Gonzalez Sestamibi Stress:Tc-99m 32.9 IV JENNIFER Gonzalez Sestamibi Rest: 25-Dec-2022 60 Discovery 630 Stress: 25-Dec-2022 30 Discovery 630 0.4mg Lexiscan. Images obtained in supine and prone position. SPECT RESULTS Technical Quality: Excellent Raw Data Analysis: Normal Image Corrections: No attenuation or motion correction applied Summed Stress Score: 1 Summed Rest Score: 3 Summed Difference Score: 0 PERFUSION FINDINGS SPECT images demonstrate homogeneous tracer distribution throughout the myocardium. FUNCTIONAL RESULTS (calculated via Gated SPECT) Stress Image LV EF (%): 32 Stress EDV (mL):218 TID: 0.95 Stress ESV (mL):149 FUNCTIONAL FINDINGS: LV systolic function is severely reduced with global hypokinesis. IMPRESSIONS 1. Normal myocardial perfusion imaging with no evidence of ischemia 2. LV systolic function is severely reduced with EF of 32% Jj Ashley MD (Electronically Signed) Final Date: 27 December 2022 14:30 S
[2022-12-25] MEDS: regadenoson 0.4 Mg/5 ml Syringe IVP (08:23)
[2022-12-25 09:22] VITALS: BP 145/91; PULSE 94
== END 2022-12-25 06:46 | disposition home or self-care (01) ==
LOC: CDL 06:45
PROVIDERS: PCP Family Medicine; Visit Provider Internal Medicine Cardiovascular Disease
DX: Z98.61 Coronary angioplasty status (principal)
CPT/HCPCS: 36415; 78452; 93017; 96374; A9500; J2785

== ENCOUNTER → 2023-01-08 11:12 | Outpatient (BNVA) | payer MEDICAID, SELFPAY | PROVIDERS: PCP Family Medicine; Visit Provider Internal Medicine Cardiovascular Disease | DX: I42.9 Cardiomyopathy, unspecified (principal); Z86.73 Personal history of transient ischemic attack (TIA), and cerebral infarction without residual deficits; E78.5 Hyperlipidemia, unspecified; B19.20 Unspecified viral hepatitis C without hepatic coma; R06.02 Shortness of breath | CPT/HCPCS: 36415; 80048; 83880; 99214 ==

== ENCOUNTER 2023-01-15 06:36 | Outpatient (CLI) | payer MEDICAID, SELFPAY ==
--- NOTE | 2023-01-15 07:00 | USCV_ITS ---
Ava Whitaker Age: 47 Gender: M : 1975 Exam Date: 01/15/2023 07:22 Ordering Phys: Cristiane Prince MD ([email or web address]) Technologist: Yovani Armenta Exam Location: [facility] [place] Indication: EF 32% BP: 123 / 91 HR: 66 Rhythm: Sinus Technical Quality: Adequate MEASUREMENTS (Male / Female) Normal Values 2D ECHO LVOT Diameter 2.1 cm LV Ejection Fraction MOD 2C 43.3 % LV Ejection Fraction 2C AL 42.5 % LA Diameter 3.8 cm LA Width 3.7 cm LA Height 4.5 cm RA Width 3.5 cm RA Height 4.8 cm Aorta at Sinotubular Diameter 2.8 cm M-MODE Aortic Annulus Diameter 3.4 cm LA Ao Ratio MM 1.1 MV E Point Septal Separation 1.3 cm DOPPLER AV Peak Velocity 106.7 cm/s LVOT Peak Velocity 84.0 cm/s AV Area Cont Eq vti 2.5 cm squared AV Area Cont Eq pk 2.7 cm squared MV Area PHT 4.4 cm squared Mitral E to A Ratio 0.9 MV E' Velocity 32.0 cm/s Mitral E to MV E' Ratio 7.3 Mitral E to LV E' Lateral Ratio 6.0 Mitral E to LV E' Septal Ratio 9.0 TR Peak Velocity 250.1 cm/s TR Peak Gradient 25.0 mmHg TR Mean Velocity 177.6 cm/s TR Mean Gradient 14.5 mmHg TR Velocity Time Integral 70.0 cm Right Atrial Pressure 8.0 mmHg Pulmonary Artery Systolic Pressu 33.0 mmHg PV Peak Velocity 94.7 cm/s RV Acceleration Time 0.1 s RV Ejection Time 0.3 s RV AcT/ET 0.4 FINDINGS Left Ventricle Left ventricle is normal in size. LV systolic function is moderately reduced with EF of 35 to 40%. Moderateglobal hypokinesis seen. Grade 1 diastolic dysfunction Right Ventricle Normal in size. RV is moderately hypokinetic Right Atrium Normal in size Left Atrium Normal in size Mitral Valve Structurally normal mitral valve. Mild mitral regurgitation. Aortic Valve Grossly normal. Trace aortic regurgitation. No significant aortic stenosis. Tricuspid Valve Mild tricuspid regurgitation. Pulmonary artery systolic pressure is normal. Pulmonic Valve Not well visualized Pericardium Normal Aorta Normal in size IVC Not well visualized CONCLUSIONS Technically limited quality echocardiogram because of poor ultrasonic windows. LV systolic function is moderately reduced with EF of 35 to 40%. Grade 1 diastolic dysfunction. RV is moderately hypokinetic. Mild mitral regurgitation. Trace aortic regurgitation. Mild tricuspid regurgitation Compared to prior echocardiogram from 07/2022, patient has moderately reduced RV function. Otherwise no changes Jj Ashley MD (Electronically Signed) Final Date: 19 Jan 2023 14:23 S
== END 2023-01-15 06:37 | disposition home or self-care (01) ==
LOC: RAD 06:40
PROVIDERS: PCP Family Medicine; Visit Provider Internal Medicine Cardiovascular Disease
DX: I42.9 Cardiomyopathy, unspecified (principal); I63.511 Cerebral infarction due to unspecified occlusion or stenosis of right middle cerebral artery
CPT/HCPCS: 93306

== ENCOUNTER → 2023-01-29 10:13 | Outpatient (BNVA) | payer MEDICAID, SELFPAY | PROVIDERS: PCP Family Medicine; Visit Provider Nurse Practitioner Family | DX: I42.9 Cardiomyopathy, unspecified (principal); F17.220 Nicotine dependence, chewing tobacco, uncomplicated; Z79.82 Long term (current) use of aspirin | CPT/HCPCS: 80048; 99214 ==

== ENCOUNTER 2023-02-02 09:56 | Emergency (ER) | payer MEDICAID, SELFPAY ==
[2023-02-02 10:11] VITALS: BP 127/68; PULSE 102; TEMP 37.4; O2SAT 95; BMI 29.1
[2023-02-02 10:45] LABS: SARS Covid-2 Antigen positive (Negative)
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
--- NOTE | 2023-02-02 11:23 | XRR_ITS ---
PROCEDURE INFORMATION: Exam: XR Chest Exam date and time: 02/02/2023 11:38 AM Age: 47 years old Clinical indication: Cough and dyspnea; Additional info: Dyspnea/cough TECHNIQUE: Imaging protocol: Radiologic exam of the chest. Views: 1 view. COMPARISON: CR XR chest 1V portable [id number] 07/22/2022 12:15 AM FINDINGS: Lungs: Streaky indistinct bandlike density projecting over the left heart border on the current study , nonspecific and inconclusive for infiltrate. Remaining lung schilling are essentially clear. Pleural spaces: Unremarkable. No pleural effusion. No pneumothorax. Heart/Mediastinum: Unremarkable. No cardiomegaly. Bones/joints: Unremarkable for age. XR/XR chest 1V portable [id number] IMPRESSION: Questionable small infiltrate versus lung mass left lower lobe. Recommend follow-up CT chest for further is assessment.
[2023-02-02 11:24] LABS: Basophils % 0.6 %; Eosinophils % 1.3 %; Hematocrit 43.3 % (42.0-52.0); Hemoglobin 14.6 g/dL (11.7-16.6); Lymphocytes # 0.6 10^3/uL (0.8-4.8); Lymphocytes % 17.2 %; Mean Corpuscular HGB Conc 33.7 g/dL (30.0-36.0); Mean Corpuscular Hemoglobin 29.7 pg (28.0-34.0); Monocytes # 0.7 10^3/uL (0.2-0.9); Monocytes % 22.3 %; Neutrophils # 1.86 10^3/uL (1.8-7.7); Neutrophils % 58.3 %; Nucleated Red Blood Cells % 0 %; Platelet Count 197 10^3/cmm (130-400); Red Blood Count 4.92 10^6/uL (4.1-5.3); Red Cell Distribution Width 12.1 % (12.1-15.1); White Blood Count 3.2 10^3/uL (4.0-10.0)
[2023-02-02 11:36] VITALS: BP 120/79; PULSE 96; RESP 18; O2SAT 96
[2023-02-02 11:49] LABS: Alanine Aminotransferase 21 U/L (0-41); Albumin Level 4.5 g/dL (3.5-5.2); Alkaline Phosphatase 55 U/L (40-130); Anion Gap 13.9 (5-19); Aspartate Amino Transferase 24 U/L (0-40); Blood Urea Nitrogen 8 mg/dL (6-20); Calcium 8.6 mg/dL (8.5-10.5); Carbon Dioxide 26 mmol/L (22-29); Chloride 104 mmol/L (98-107); Globulin 2.7 g/dL (1.3-4.6); Glomerular Filtration Rate 79.4 mL/min (90-130); Glucose 99 mg/dL (65-115); Osmolality Calculated 288 mOsm/kg (285-295); Potassium 3.9 mmol/L (3.5-5.1); Sodium 140 mmol/L (136-145); Total Bilirubin 0.4 mg/dL (0.15-1.2); Total Protein 7.2 g/dL (6.6-8.7)
[2023-02-02 12:14] LABS: Influenza A by IFA negative (Negative); Influenza B by IFA negative (Negative)
== END 2023-02-02 12:21 | disposition home or self-care (01) ==
PROVIDERS: Emergency Provider Family Medicine; PCP Family Medicine
DX: U07.1 COVID-19 (principal); Z79.82 Long term (current) use of aspirin; F17.220 Nicotine dependence, chewing tobacco, uncomplicated; Z86.73 Personal history of transient ischemic attack (TIA), and cerebral infarction without residual deficits; Z86.19 Personal history of other infectious and parasitic diseases
CPT/HCPCS: 36415; 71045; 80053; 85025; 87426; 87804; 99284

== ENCOUNTER 2023-10-29 15:21 | Emergency (ER) | payer MEDICAID, SELFPAY ==
[2023-10-29 15:27] VITALS: BP 121/83; PULSE 101; RESP 16; TEMP 36.4; O2SAT 97; BMI 29.1
--- NOTE | 2023-10-29 15:36 | ED_ITS ---
HPI - Back Pain/Injury General: Chief Complaint: Back Pain/Injury Stated Complaint: lower back pain Time Seen by Provider: 10/29/23 15:36 History of Present Illness: 48-year-old male patient comes in with l ow back pain. Patient reports that he has chronic low back pain problems but usually is able to get around well. Patient reports for the last 2 to 3 days he has had increasing pain and discomfort. Patient was here earlier today in the emergency room but had to leave in order to go to a job interview. Patient came back for completion of services. Review of the record noted that Dr. Johnson had seen the patient and had recommended injection of ketorolac, dexamethasone, and orphenadrine. 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 Review of Systems General: Reports: 10 or more systems reviewed and unremarkable except in HPI and below Musc: Reports: back pain [facility] ED PFSH: Medical History Heart failure, left, 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% History of back injury 2006, spinal fusion Hepatitis C Methamphetamine abuse Intravenous drug abuse Cardiomyopathy Acute right arterial ischemic stroke, middle cerebral artery (MCA) Substance abuse Surgical History History of back surgery History of lymph node excision groin area History of hand surgery Family History Grandmother Cancer breast Hypertension Mother Lung disease Other Psychiatric illness Denies family history of Diabetes CAD (coronary artery disease) Clotting disorder Dementia Hyperlipidemia Chronic kidney disease (CKD) Suicide Anesthesia complication Bleeding disorder Stroke Social History Smoking and tobacco/nicotine status: current every day tobacco/nicotine user smokeless tobacco Smokeless tobacco user: chewing tobacco Quit status (tobacco/nicotine): has quit using Former quit date comment: quit cigarettes on 11/19/22 Alcohol intake: former Former alcohol use details: quit 08/05/22 Substance/Drug Use: former Date of last use: 07/23/22, meth, cocaine, heroin, opioids Lives independently: Yes Marital status: Single Current occupational status: unemployed Current gender identity: Male Physical Exam Const: COMMON NORMALS: alert HENMT: COMMON NORMALS: normocephalic HEAD & SCALP: normocephalic Neck/C-Spine: COMMON NORMALS: full ROM Resp: COMMON NORMALS: normal respiratory effort and clear to auscultation bilaterally AUSCULTATION: clear to auscultation bilaterally Cardio: COMMON NORMALS: regular rate and regular rhythm RATE: regular rate RHYTHM: regular rhythm Back/Pelvis: LUMBAR SPINE/LOWER BACK: Yes lumbar spinal tenderness Lumbar spinal tenderness location: L5 and Yes paraspinal muscle tenderness Extremity: COMMON NORMALS: normal to inspection Neuro: SENSORIUM/ORIENTATION: Yes alert Skin: COMMON NORMALS: turgor normal GENERAL SKIN EXAM: turgor normal Course Vital Signs: Vital signs: Vital Signs Temperature 97.6 F 10/29/23 15:27 Pulse Rate 101 H 10/29/23 15:27 Respiratory Rate 16 10/29/23 15:27 Blood Pressure 121/83 10/29/23 15:27 Pulse Oximetry 97 10/29/23 15:27 MDM - Back Pain/Injury Medical Decision Making 48-year-old male patient came back today for completion of services. On exam patient has some paraspinous muscle tenderness to the lumbar spine area. Patient has intervertebral disc tenderness between L5 and S1 on palpation. Differential diagnosis includes not limited to intervertebral disc disease, facet arthropathy, lumbar strain. Patient will be given 30 mg ketorolac, 10 mg of dexamethasone, and 60 mg of orphenadrine. Patient be continued on diclofenac and prednisone. Patient is recommended to follow-up with primary care return to ED for new concerns. All radiology interpretation(s) finalized by discharge Discharge Plan Discharge Patient Disposition: Home Clinical Impression: Lumbar back pain Condition: Stable Prescriptions: New diclofenac sodium 75 mg tablet,delayed release (DR/EC) 75 mg PO BID Qty: 20 0RF prednisone 20 mg tablet 20 mg PO DAILY 7 Days Qty: 7 0RF No Action fluticasone propionate [Flonase Allergy Relief] 50 mcg/actuation spray,suspension 2 spray intranasal DAILY Qty: 16 0RF Rx Instructions: administer into each nostril aspirin 81 mg tablet,delayed release (DR/EC) 81 mg PO DAILY 90 Days Qty: 90 1RF cetirizine [Zyrtec] 10 mg tablet 10 mg PO DAILY Qty: 60 0RF atorvastatin 40 mg tablet 40 mg PO BEDTIME 30 Days Qty: 90 1RF tamsulosin [Flomax] 0.4 mg capsule 0.4 mg PO DAILY Qty: 90 1RF Discharge Orders: Discharge ED (Routine); Ordered 10/29/23 Ordered By: Sergio Saenz Referrals: Blanco Amaro MD [Primary Care Provider] - Discharge Diet: Usual diet Discharge Activity: Increase activity as tolerated Patient Instructions: Back Pain (ED) Activity Restrictions/Additional Instructions: Activity as tolerated. Gentle stretching and range of motion exercises. Ice or heat to the area of pain for further comfort. Return to ED for new concerns. 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
[2023-10-29] MEDS: ketorolac 30 mg/mL INJ IM (15:55)
[2023-10-29] MEDS: orphenadrine 30 mg/mL Inj 2 mL 60 MG IM (15:55)
[2023-10-29] MEDS: dexamethasone 10 mg/mL INJ IM (15:55)
== END 2023-10-29 16:01 | disposition home or self-care (01) ==
PROVIDERS: Emergency Provider Nurse Practitioner Family; PCP Family Medicine
DX: M54.50 Low back pain, unspecified (principal); Z79.82 Long term (current) use of aspirin; F17.220 Nicotine dependence, chewing tobacco, uncomplicated; Z86.19 Personal history of other infectious and parasitic diseases; I42.9 Cardiomyopathy, unspecified
CPT/HCPCS: 96372; 99284; J1100; J1885; J2360

== ENCOUNTER 2023-11-20 16:47 | Emergency (ER) | payer MEDICAID, SELFPAY ==
[2023-11-20 16:49] VITALS: BP 126/61; PULSE 101; RESP 26; TEMP 36.9; O2SAT 100; BMI 25.7
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
--- NOTE | 2023-11-20 16:54 | ECG_ITS ---
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 Measurements Intervals [place] Rate: 84 P: 66 MD: 180 QRS: -3 QRSD: 95 T: 26 QT: 342 QTc: 405 Interpretive Statements SINUS RHYTHM NONSPECIFIC T-WAVE ABNORMALITY Compared to ECG 07/23/2022 10:40:19 No significant changes Electronically Signed On 11-20-2023 18:00:51 [employer] by Cristiane Prince M.D. [id number]
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
[2023-11-20 17:06] LABS: Basophils % 0.3 %; Eosinophils # 0.1 10^3/uL (0.0-0.8); Eosinophils % 1.5 %; Hematocrit 42.9 % (37-53); Lymphocytes # 2.8 10^3/uL (0.8-4.8); Lymphocytes % 35.6 %; Mean Corpuscular HGB Conc 34.7 g/dL (30-55); Mean Corpuscular Volume 89.2 fl (82-101); Mean Platelet Volume 10.8 fL (7.4-10.4); Monocytes # 0.7 10^3/uL (0.2-0.9); Monocytes % 9.5 %; Neutrophils # 4.12 10^3/uL (1.8-7.7); Neutrophils % 52.8 %; Nucleated Red Blood Cells % 0 %; Platelet Count 240 10^3/cmm (157-399); Red Blood Count 4.81 10^6/uL (3.85-5.65); Red Cell Distribution Width 12.5 % (12.1-15.1)
[2023-11-20] MEDS: iohexol 350 mg/mL 500 mL Btl (per mL) IV (17:07)
[2023-11-20 17:20] VITALS: RESP 18
[2023-11-20] MEDS: sodium chloride 0.9% 1,000 ML 999 ML IV (17:20)
[2023-11-20] MEDS: ondansetron 2 mg/ML SDV 2 mL 4 MG IVP (17:20)
[2023-11-20] MEDS: fentaNYL 50 mcg/mL INJ 2mL 25 MCG IVP (17:20)
[2023-11-20 17:24] LABS: Alanine Aminotransferase 52 U/L (0-41); Albumin Level 4.4 g/dL (3.5-5.2); Alkaline Phosphatase 90 U/L (40-130); Anion Gap 18.4 (5-19); Aspartate Amino Transferase 36 U/L (0-40); Blood Urea Nitrogen 10 mg/dL (6-20); Calcium 8.9 mg/dL (8.5-10.5); Carbon Dioxide 21 mmol/L (22-29); Chloride 105 mmol/L (98-107); Creatinine Clr Calc Pharmacy 112.5461; Globulin 3.1 g/dL (1.3-4.6); Glomerular Filtration Rate 89.3 mL/min (90-130); Glucose 94 mg/dL (65-115); Lipase 29 U/L (13-60); Osmolality Calculated 291 mOsm/kg (285-295); Potassium 3.4 mmol/L (3.5-5.1); Sodium 141 mmol/L (136-145); Total Bilirubin 0.3 mg/dL (0.15-1.2); Total Protein 7.5 g/dL (6.6-8.7)
[2023-11-20 18:00] VITALS: BP 118/72; PULSE 76; RESP 18; O2SAT 97
[2023-11-20 18:23] LABS: Add Urine Microscopic? NO; Charge for UA Resulting for Rev
[2023-11-20 18:37] LABS: Bilirubin Urine Neg (Negative); Blood Urine Neg (Negative); Glucose Urine UA Norm (Normal); Ketones Urine Negative (Negative); Leukocyte Esterase Urine Negative (Negative); Nitrate Urine Negative (Negative); Protein Urine Neg (Negative); Specific Gravity, Urine 1.005 (1.005-1.030); Sulfosalicylic Acid Urine Negative (Negative); Urine Appearance Clear (CLEAR); Urine Color Colorless (Yellow); Urobilinogen Urine Norm (Negative); pH Urine 8 (5-7)
[2023-11-20 20:01] VITALS: RESP 18
== END 2023-11-20 20:03 | disposition home or self-care (01) ==
PROVIDERS: Emergency Provider Family Medicine; PCP Family Medicine
DX: Z04.1 Encounter for examination and observation following transport accident (principal); Z79.82 Long term (current) use of aspirin; V13.4XXA Pedal cycle driver injured in collision with car, pick-up truck or van in traffic accident, initial encounter; Z86.19 Personal history of other infectious and parasitic diseases; I42.9 Cardiomyopathy, unspecified; Z86.73 Personal history of transient ischemic attack (TIA), and cerebral infarction without residual deficits; F17.220 Nicotine dependence, chewing tobacco, uncomplicated
CPT/HCPCS: 36415; 70450; 71045; 71260; 72125; 73562; 73610; 74177; 80053; 81003; 83690; 85025; 86850; 86900; 93005; 96374; 96375; 99285; J2405; J3010; J7030; Q9967

== ENCOUNTER → 2023-12-17 08:43 | Outpatient (BNVA) | payer MEDICAID, SELFPAY | PROVIDERS: PCP Family Medicine; Visit Provider Family Medicine | DX: S69.91XA Unspecified injury of right wrist, hand and finger(s), initial encounter (principal); V89.2XXA Person injured in unspecified motor-vehicle accident, traffic, initial encounter | CPT/HCPCS: 73130 ==

== ENCOUNTER 2024-04-06 11:27 | Emergency (ER) | payer SELFPAY ==
[2024-04-06 11:56] VITALS: BP 148/82; PULSE 118; RESP 18; TEMP 36.6; O2SAT 96
--- NOTE | 2024-04-06 12:10 | XRR_ITS ---
PROCEDURE INFORMATION: Exam: XR Left Foot Exam date and time: 04/06/2024 12:16 PM Age: 48 years old Clinical indication: Injury or trauma; Other: Stepped on a nail; Puncture; Foot; Left; With foreign body; Additional info: Fb TECHNIQUE: Imaging protocol: Radiologic exam of the left foot. Views: 3 or more views. COMPARISON: CR XR foot LT min 3V* [id number] 12/18/2022 1:25 PM FINDINGS: Bones/joints: Mild arthritic changes within the interphalangeal joints. No fracture, dislocation or subluxation. Soft tissues: No radiopaque foreign body. XR/XR foot LT min 3V* [id number] IMPRESSION: No radiopaque foreign body.
--- NOTE | 2024-04-06 12:11 | PC.NURSE ---
this nurse assumed pt care at 1210.
--- NOTE | 2024-04-06 12:16 | ED_ITS ---
HPI - Wound/Laceration General: Chief Complaint: Wound/Laceration Stated Complaint: stepped on nail left foot Time Seen by Provider: 04/06/24 12:02 Source: patient Mode of arrival: ambulatory Limitations: no limitations History of Present Illness: 48-year-old male states he had stepped o n a nail just prior to arrival. He states he is wearing tennis shoes it is to his left foot. He states he has pain in the left foot is unsure when his last tetanus was. Denies any other injuries. Associated symptoms: Denies chills, fever(s), nausea or vomiting Review of Systems Const: Denies: fever(s), chills, body aches or change in appetite ENMT: Denies: throat pain or dental pain Card: Denies: chest pain Resp: Denies: dyspnea GI: Denies: abdominal pain, nausea, vomiting or diarrhea Musc: Reports: extremity pain; Denies: neck pain or back pain Skin/Breast: Denies: rash Neuro: Denies: headache(s) PFSH ED PFSH: Medical History Anxiety Heart failure, left, 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% History of back injury 2006, spinal fusion Hepatitis C Methamphetamine abuse Intravenous drug abuse Cardiomyopathy Acute right arterial ischemic stroke, middle cerebral artery (MCA) Substance abuse Surgical History History of back surgery History of lymph node excision groin area History of hand surgery Family History Grandmother Cancer breast Hypertension Mother Lung disease Other Psychiatric illness Denies family history of Diabetes CAD (coronary artery disease) Clotting disorder Dementia Hyperlipidemia Chronic kidney disease (CKD) Suicide Anesthesia complication Bleeding disorder Stroke Social History Smoking and tobacco/nicotine status: current every day tobacco/nicotine user cigarettes Packs smoked per day: 0.25 and smokeless tobacco Smokeless tobacco user: chewing tobacco Quit status (tobacco/nicotine): has quit using Former quit date comment: quit cigarettes on 11/19/22 Alcohol intake: former Former alcohol use details: quit 08/05/22 Substance/Drug Use: former Date of last use: 07/23/22, meth, cocaine, heroin, opioids Lives independently: Yes Marital status: Single Current occupational status: unemployed Current gender identity: Male Physical Exam Const: COMMON NORMALS: no acute distress, patient oriented x3 and healthy appearing HENMT: COMMON NORMALS: normocephalic and atraumatic HEAD & SCALP: normocephalic and atraumatic Eye: COMMON NORMALS: conjunctivae normal CONJUNCTIVA: Yes conjunctivae normal Neck/C-Spine: COMMON NORMALS: full ROM and supple Chest: COMMONS NORMALS: normal inspection of the chest Resp: COMMON NORMALS: normal respiratory effort Extremity: COMMON NORMALS: full ROM NARRATIVE EXTREMITY EXAM: Small puncture wound noted to sole of left foot no foreign body noted Neuro: COMMON NORMALS: patient oriented x3, moves all extremities and no focal motor deficits Psych: COMMON NORMALS: mental status grossly normal, Normal thought process present and cooperative THOUGHT PROCESS: Normal thought process present Skin: COMMON NORMALS: no rashes or lesions noted and no wounds GENERAL SKIN EXAM: no rashes or lesions noted Course Vital Signs: Vital signs: Vital Signs Temperature 97.8 F 04/06/24 11:56 Pulse Rate 118 H 04/06/24 11:56 Respiratory Rate 18 04/06/24 11:56 Blood Pressure 148/82 04/06/24 11:56 Pulse Oximetry 96 04/06/24 11:56 Oxygen Delivery Me thod Room Air 04/06/24 11:56 MDM - Wound/Laceration Medical Decision Making Patient presents here with puncture wound to the left foot he has no signs of foreign bodies we will place him on Augmentin he did get a tetanus. He is stable for discharge follow-up PCP return if worsening. Medical Records I reviewed the patient's medical records. XR interpretation done by ED provider, pending radiology final review ED provider radiology interpretation(s): X-ray left foot no obvious abnormalities Discharge Plan Discharge Patient Disposition: Home Clinical Impression: Puncture wound Condition: Stable Prescriptions: New Augmentin 500-125 mg tablet 1 tab PO BID Qty: 14 0RF No Action buspirone 7.5 mg tablet 7.5 mg PO BID Qty: 60 0RF cyclobenzaprine 10 mg tablet 10 mg PO TID PRN (Reason: muscle spasm) Qty: 60 0RF prednisone 20 mg tablet 40 mg PO DAILY 5 Days Qty: 10 0RF meloxicam 15 mg tablet 15 mg PO DAILY Qty: 30 0RF ondansetron HCl 4 mg tablet 4 mg PO Q8H PRN (Reason: nausea and vomiting) Qty: 30 0RF meclizine 25 mg tablet 25 mg PO BID PRN (Reason: dizziness) Qty: 30 0RF cetirizine [Zyrtec] 10 mg tablet 10 mg PO DAILY Qty: 90 1RF fluticasone propionate [Flonase Allergy Relief] 50 mcg/actuation spray,suspension 2 spray intranasal DAILY Qty: 16 2RF Rx Instructions: administer into each nostril aspirin 81 mg tablet,delayed release (DR/EC) 81 mg PO DAILY 90 Days Qty: 90 1RF atorvastatin 40 mg tablet 40 mg PO BEDTIME 30 Days Qty: 90 1RF Discharge Orders: Discharge ED (Routine); Ordered 04/06/24 Ordered By: Karlos Harrington Referrals: Blanco Amaro MD [Primary Care Provider] - Discharge Diet: Advance as tolerated Discharge Activity: Resume usual activity Patient Instructions: Puncture Wound (ED) Coding Level of Care Code ED Licensed Mortician for Que To
[2024-04-06] MEDS: tetanus-dipt-pertussis 0.5 mL SDV IM (12:23)
[2024-04-06] MEDS: naproxen 500 mg Tablet PO (12:24)
[2024-04-06 12:53] VITALS: BP 141/80; PULSE 97; RESP 16; TEMP 36.6; O2SAT 95
== END 2024-04-06 12:54 | disposition home or self-care (01) ==
PROVIDERS: Emergency Provider Emergency Medicine; PCP Family Medicine
DX: S91.332A Puncture wound without foreign body, left foot, initial encounter (principal); W45.0XXA Nail entering through skin, initial encounter; F17.220 Nicotine dependence, chewing tobacco, uncomplicated; Z86.19 Personal history of other infectious and parasitic diseases; I42.9 Cardiomyopathy, unspecified; Z86.73 Personal history of transient ischemic attack (TIA), and cerebral infarction without residual deficits; I50.1 Left ventricular failure, unspecified; Z23 Encounter for immunization
CPT/HCPCS: 73630; 90715; 99283

== ENCOUNTER 2024-04-10 01:51 | Emergency (ER) | payer SELFPAY ==
[2024-04-10 01:53] VITALS: BP 138/79; PULSE 118; RESP 26; TEMP 36.6; O2SAT 95; BMI 28.5
[2024-04-10] MEDS: haloperidol inj 5 mg/mL INJ 1 mL IM (02:05)
[2024-04-10] MEDS: LORazepam 2 mg/mL INJ 1 mL IM (02:05)
[2024-04-10 02:08] VITALS: BP 138/79; PULSE 97; RESP 14; O2SAT 94
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
--- NOTE | 2024-04-10 02:16 | XRR_ITS ---
PROCEDURE INFORMATION: Exam: XR Chest Exam date and time: 04/10/2024 2:22 AM Age: 48 years old Clinical indication: Dyspnea and shortness of breath; Patient HX: SOB with dyspnea TECHNIQUE: Imaging protocol: Radiologic exam of the chest. Views: 1 view. COMPARISON: CT chest abdpel w/*[id number] 11/20/2023 5:05 PM FINDINGS: Lungs: The lungs are clear. No pulmonary consolidation. Pleural spaces: No pleural effusion or pneumothorax. Heart/Mediastinum: The cardiomediastinal silhouette is within normal limits. Bones/joints: No acute osseous abnormalities are seen. XR/XR chest 1V portable [id number] IMPRESSION: No acute cardiopulmonary disease.
[2024-04-10 02:40] LABS: Basophils % 0.1 %; Eosinophils # 0.1 10^3/uL (0.0-0.8); Eosinophils % 0.8 %; Hematocrit 39.9 % (37-53); Lymphocytes # 1.5 10^3/uL (0.8-4.8); Lymphocytes % 17.2 %; Mean Corpuscular HGB Conc 34.1 g/dL (30-55); Mean Corpuscular Hemoglobin 29.5 pg (27-33); Mean Corpuscular Volume 86.6 fl (82-101); Mean Platelet Volume 10.2 fL (7.4-10.4); Monocytes # 1.1 10^3/uL (0.2-0.9); Monocytes % 12.9 %; Neutrophils # 5.79 10^3/uL (1.8-7.7); Neutrophils % 68.5 %; Nucleated Red Blood Cells % 0 %; Platelet Count 328 10^3/cmm (157-399); Red Blood Count 4.61 10^6/uL (3.85-5.65); White Blood Count 8.45 10^3/uL (3.29-11.43)
[2024-04-10 03:01] LABS: Alanine Aminotransferase 59 U/L (0-41); Albumin Level 4.2 g/dL (3.5-5.2); Alkaline Phosphatase 68 U/L (40-130); Aspartate Amino Transferase 98 U/L (0-40); Blood Urea Nitrogen 15 mg/dL (6-20); Carbon Dioxide 22 mmol/L (22-29); Chloride 103 mmol/L (98-107); Glomerular Filtration Rate 79.1 mL/min (90-130); Glucose 183 mg/dL (65-115); Osmolality Calculated 296 mOsm/kg (285-295); Sodium 140 mmol/L (136-145); Total Bilirubin 0.6 mg/dL (0.15-1.2); Total Protein 7.2 g/dL (6.6-8.7); Troponin(5th) Baseline 11 ng/L (0-15)
[2024-04-10 03:02] LABS: Acetaminophen < 5.0 ug/mL (10-30); Alcohol Level < 10 mg/dL (0-10); Anion Gap 18.2 (5-19); Potassium 3.2 mmol/L (3.5-5.1); Salicylate < 0.3 mg/dL (3-10)
[2024-04-10 03:16] VITALS: BP 115/79; PULSE 88; RESP 21; O2SAT 94
--- NOTE | 2024-04-10 03:21 | ECG_ITS ---
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 Measurements Intervals [place] Rate: 81 P: 55 [place]: 171 QRS: -5 QRSD: 114 T: 5 QT: 395 QTc: 461 Interpretive Statements SINUS RHYTHM MODERATE INTRAVENTRICULAR CONDUCTION DELAY [110+ ms QRS DURATION] MODERATE T-WAVE ABNORMALITY, CONSIDER ANTEROLATERAL ISCHEMIA [-0.1+ mV T-WAVE IN V3-V6] Compared to ECG 11/20/2023 17:24:42 Intraventricular conduction delay now present Possible ischemia now present T-wave abnormality still present Electronically Signed On 04-10-2024 7:11:52 CDT by Reji Munoz M.D. [id number]
[2024-04-10 04:47] LABS: Troponin 5 2HR 7.53 ng/L (0-15); Troponin 5 2HR Delta -3.47 ABS# (0-10)
[2024-04-10 05:06] VITALS: BP 123/98; PULSE 78; RESP 14; O2SAT 99
[2024-04-10 06:38] VITALS: BP 120/90; PULSE 67; O2SAT 100
== END 2024-04-10 08:49 | disposition home or self-care (01) ==
PROVIDERS: Emergency Provider Emergency Medicine; PCP Family Medicine
DX: F41.9 Anxiety disorder, unspecified (principal); F15.10 Other stimulant abuse, uncomplicated; Z79.82 Long term (current) use of aspirin; F17.210 Nicotine dependence, cigarettes, uncomplicated; F17.220 Nicotine dependence, chewing tobacco, uncomplicated; Z86.19 Personal history of other infectious and parasitic diseases; I42.9 Cardiomyopathy, unspecified; I50.1 Left ventricular failure, unspecified; Z86.73 Personal history of transient ischemic attack (TIA), and cerebral infarction without residual deficits
CPT/HCPCS: 71045; 80053; 80307; 84484; 85025; 93005; 99284; J1630; J2060

== ENCOUNTER 2024-05-20 11:15 | Emergency (ER) | payer SELFPAY ==
[2024-05-20 12:10] VITALS: BP 129/81; PULSE 109; RESP 18; TEMP 36.6; O2SAT 97; BMI 25.7
--- NOTE | 2024-05-20 13:53 | W.ED.SKABFB ---
HPI - Skin/Abscess/Foreign Bdy General: Chief complaint: Skin/Abscess/Foreign Body Stated complaint: fishing hook stuck in head Time Seen by Provider: 05/20/24 11:18 Source: patient Mode of arrival: ambulatory Limitations: no limitations History of Present Illness: Patient is a 48-year-old male presents to ED today with a complaint of a fish hook to the right side of his scalp that he sustained just prior to arrival after he jerked the fishing line and the fish hook flew back and one of the barbs caught him to the right side of his scalp. Tetanus is up-to-date. MD complaint: foreign body Onset (ago): hour(s) Tetanus up to date: yes Location: head Severity: mild Relieving factors: none Exacerbating factors: none Associated symptoms: Reports no associated symptoms Treatments prior to arrival: none Related Data Previous Rx's Medication Instructions Recorded aspirin 81 mg tablet,delayed 81 mg PO DAILY 90 days #90 tabs 11/05/22 release cetirizine 10 mg tablet (Zyrtec) 10 mg PO DAILY #90 tabs 11/26/23 fluticasone propionate 50 2 spray intranasal DAILY #16 grams 11/26/23 mcg/actuation nasal spray,suspension (Flonase Allergy Relief) meclizine 25 mg tablet 25 mg PO BID PRN dizziness #30 tabs 11/26/23 ondansetron HCl 4 mg tablet 4 mg PO Q8H PRN nausea and 11/26/23 vomiting #30 tabs buspirone 7.5 mg tablet 7.5 mg PO BID #60 tabs 12/17/23 cyclobenzaprine 10 mg tablet 10 mg PO TID PRN muscle spasm #60 12/17/23 tabs meloxicam 15 mg tablet 15 mg PO DAILY #30 tabs 12/17/23 prednisone 20 mg tablet 40 mg (2 x 20 mg) PO DAILY 5 days 12/17/23 #10 tabs atorvastatin 40 mg tablet 40 mg PO BEDTIME 30 days #90 tabs 01/18/24 amoxicillin 500 mg-potassium 1 tab PO BID #14 tabs 04/06/24 clavulanate 125 mg tablet (Augmentin) Allergies Allergy/AdvReac Type Severity Reaction Status Date / Time fentanyl Allergy Mild ALGY-Rash Verified 05/20/24 12:15 morphine Allergy Unknown Verified 05/20/24 12:15 Review of Systems Skin/Breast: Reports: other (fish hook latosha embedded in scalp) [facility] ED PFSH: Medical History Anxiety Heart failure, left, 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% History of back injury 2006, spinal fusion Hepatitis C Methamphetamine abuse Intravenous drug abuse Cardiomyopathy Acute right arterial ischemic stroke, middle cerebral artery (MCA) Substance abuse Surgical History History of back surgery History of lymph node excision groin area History of hand surgery Family History Grandmother Cancer breast Hypertension Mother Lung disease Other Psychiatric illness Denies family history of Diabetes CAD (coronary artery disease) Clotting disorder Dementia Hyperlipidemia Chronic kidney disease (CKD) Suicide Anesthesia complication Bleeding disorder Stroke Social History Smoking and tobacco/nicotine status: current every day tobacco/nicotine user cigarettes Packs smoked per day: 0.25 and smokeless tobacco Smokeless tobacco user: chewing tobacco Quit status (tobacco/nicotine): has quit using Former quit date comment: quit cigarettes on 11/19/22 Alcohol intake: former Former alcohol use details: quit 08/05/22 Substance/Drug Use: former Date of last use: 07/23/22, meth, cocaine, heroin, opioids Lives independently: Yes Marital status: Single Current occupational status: unemployed Current gender identity: Male Physical Exam Const: COMMON NORMALS: no acute distress, average body habitus, patient oriented x3, alert and well nourished GENERAL APPEARANCE: cooperative OTHER: psychomotor agitation HENMT: HEAD IMAGES: 1. fish hook latosha Neuro: COMMON NORMALS: patient oriented x3 SENSORIUM/ORIENTATION: Yes alert Procedures Foreign Body Removal Site: right and other (scalp) Description of foreign body: fish hook Sedation/Analgesia: other (local lidocaine) Technique: manual removal (hemostats ) and incision made to facilitate removal Confirmed by:: direct visualization Complications: none Neurovascular: no change from pre-procedure Course Vital Signs: Vital signs: Vital Signs Temperature 97.9 F 05/20/24 12:10 Pulse Rate 109 H 05/20/24 12:10 Respiratory Rate 18 05/20/24 12:10 Blood Pressure 129/81 05/20/24 12:10 Pulse Oximetry 97 05/20/24 12:10 Oxygen Delivery Me thod Room Air 05/20/24 12:10 MDM - Skin/Abscess/Foreign Bdy Medicial Decision Making Fish hook removed without difficulty. Tetanus UTD. Will be allowed discharge. Medical Records I reviewed the patient's medical records. No radiology studies performed this visit Discharge Plan Discharge Patient Disposition: Home Clinical Impression: Fish hook in scalp Condition: Stable Prescriptions: No Action buspirone 7.5 mg tablet 7.5 mg PO BID Qty: 60 0RF cyclobenzaprine 10 mg tablet 10 mg PO TID PRN (Reason: muscle spasm) Qty: 60 0RF prednisone 20 mg tablet 40 mg PO DAILY 5 Days Qty: 10 0RF meloxicam 15 mg tablet 15 mg PO DAILY Qty: 30 0RF ondansetron HCl 4 mg tablet 4 mg PO Q8H PRN (Reason: nausea and vomiting) Qty: 30 0RF meclizine 25 mg tablet 25 mg PO BID PRN (Reason: dizziness) Qty: 30 0RF cetirizine [Zyrtec] 10 mg tablet 10 mg PO DAILY Qty: 90 1RF fluticasone propionate [Flonase Allergy Relief] 50 mcg/actuation spray,suspension 2 spray intranasal DAILY Qty: 16 2RF Rx Instructions: administer into each nostril aspirin 81 mg tablet,delayed release (DR/EC) 81 mg PO DAILY 90 Days Qty: 90 1RF atorvastatin 40 mg tablet 40 mg PO BEDTIME 30 Days Qty: 90 1RF Augmentin 500-125 mg tablet 1 tab PO BID Qty: 14 0RF Discharge Orders: Discharge ED (Routine); Ordered 05/20/24 Ordered By: Roxy Nicolas Referrals: Blanco Amaro MD [Primary Care Provider] - Coding Level of Care Code ED Desulfurizer Machine for Kitag Yousuf
[2024-05-20 14:07] VITALS: BP 129/81; PULSE 109; RESP 18; TEMP 36.6; O2SAT 97
== END 2024-05-20 14:05 | disposition home or self-care (01) ==
PROVIDERS: Emergency Provider Physician Assistant; PCP Family Medicine
DX: S01.04XA Puncture wound with foreign body of scalp, initial encounter (principal); W26.8XXA Contact with other sharp object(s), not elsewhere classified, initial encounter; Z79.82 Long term (current) use of aspirin; F17.210 Nicotine dependence, cigarettes, uncomplicated; F17.220 Nicotine dependence, chewing tobacco, uncomplicated; I50.9 Heart failure, unspecified; Z86.19 Personal history of other infectious and parasitic diseases; I42.9 Cardiomyopathy, unspecified; Z86.73 Personal history of transient ischemic attack (TIA), and cerebral infarction without residual deficits
CPT/HCPCS: 10120; 99282

== ENCOUNTER 2024-05-20 20:08 | Emergency (ER) | payer SELFPAY ==
[2024-05-20 20:18] VITALS: BP 109/90; PULSE 144; RESP 20; TEMP 36.6; O2SAT 98; BMI 20.3
[2024-05-20] MEDS: LORazepam 2 mg/mL INJ 1 mL IM (20:45)
[2024-05-20] MEDS: ziprasidone 20 mg/mL SDV IM (20:45)
[2024-05-20 21:09] LABS: Basophils % 0.3 %; Eosinophils # 0.1 10^3/uL (0.0-0.8); Eosinophils % 0.9 %; Hematocrit 38.8 % (37-53); Lymphocytes # 1.2 10^3/uL (0.8-4.8); Lymphocytes % 16.6 %; Mean Corpuscular Hemoglobin 30.3 pg (27-33); Mean Corpuscular Volume 89.2 fl (82-101); Mean Platelet Volume 9.4 fL (7.4-10.4); Monocytes # 0.7 10^3/uL (0.2-0.9); Monocytes % 9.2 %; Neutrophils # 5.42 10^3/uL (1.8-7.7); Neutrophils % 72.7 %; Nucleated Red Blood Cells % 0 %; Platelet Count 237 10^3/cmm (157-399); Red Blood Count 4.35 10^6/uL (3.85-5.65); Red Cell Distribution Width 12.4 % (12.1-15.1); White Blood Count 7.46 10^3/uL (3.29-11.43)
[2024-05-20 21:32] LABS: Alanine Aminotransferase 27 U/L (0-41); Albumin Level 4.1 g/dL (3.5-5.2); Alcohol Level 11 mg/dL (0-10); Alkaline Phosphatase 74 U/L (40-130); Anion Gap 19.2 (5-19); Aspartate Amino Transferase 45 U/L (0-40); Blood Urea Nitrogen 17 mg/dL (6-20); Calcium 8.5 mg/dL (8.5-10.5); Carbon Dioxide 20 mmol/L (22-29); Chloride 106 mmol/L (98-107); Creatinine Clr Calc Pharmacy 83.8359; Globulin 2.9 g/dL (1.3-4.6); Glomerular Filtration Rate 70.9 mL/min (90-130); Glucose 116 mg/dL (65-115); Osmolality Calculated 297 mOsm/kg (285-295); Potassium 3.2 mmol/L (3.5-5.1); Sodium 142 mmol/L (136-145); Total Bilirubin 0.6 mg/dL (0.15-1.2)
[2024-05-20 21:33] LABS: Acetaminophen < 5.0 ug/mL (10-30); Salicylate < 0.3 mg/dL (3-10)
[2024-05-20 22:00] VITALS: PULSE 111; O2SAT 94
--- NOTE | 2024-05-20 22:04 | ED_ITS ---
HPI - Altered Mental Status 2 General: Chief Complaint: Altered Mental Status Stated Complaint: substance abuse, AMS Time Seen by Provider: 05/20/24 20:17 History of Present Illness: 48-year-old male brought in with deliriu m and agitation following unknown substance abuse. He is conversant. He can walk. He was seen earlier today for fishhook removal. Related Data Previous Rx's Medication Instructions Recorded aspirin 81 mg tablet,delayed 81 mg PO DAILY 90 days #90 tabs 11/05/22 release cetirizine 10 mg tablet (Zyrtec) 10 mg PO DAILY #90 tabs 11/26/23 fluticasone propionate 50 2 spray intranasal DAILY #16 grams 11/26/23 mcg/actuation nasal spray,suspension (Flonase Allergy Relief) meclizine 25 mg tablet 25 mg PO BID PRN dizziness #30 tabs 11/26/23 ondansetron HCl 4 mg tablet 4 mg PO Q8H PRN nausea and 11/26/23 vomiting #30 tabs buspirone 7.5 mg tablet 7.5 mg PO BID #60 tabs 12/17/23 cyclobenzaprine 10 mg tablet 10 mg PO TID PRN muscle spasm #60 12/17/23 tabs meloxicam 15 mg tablet 15 mg PO DAILY #30 tabs 12/17/23 prednisone 20 mg tablet 40 mg (2 x 20 mg) PO DAILY 5 days 12/17/23 #10 tabs atorvastatin 40 mg tablet 40 mg PO BEDTIME 30 days #90 tabs 01/18/24 amoxicillin 500 mg-potassium 1 tab PO BID #14 tabs 04/06/24 clavulanate 125 mg tablet (Augmentin) Allergies Allergy/AdvReac Type Severity Reaction Status Date / Time fentanyl Allergy Mild ALGY-Rash Verified 05/20/24 12:15 morphine Allergy Unknown Verified 05/20/24 12:15 [facility] ED 2 PFS: Medical History Anxiety Heart failure, left, 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% History of back injury 2006, spinal fusion Hepatitis C Methamphetamine abuse Intravenous drug abuse Cardiomyopathy Acute right arterial ischemic stroke, middle cerebral artery (MCA) Substance abuse Surgical History History of back surgery History of lymph node excision groin area History of hand surgery Family History Grandmother Cancer breast Hypertension Mother Lung disease Other Psychiatric illness Denies family history of Diabetes CAD (coronary artery disease) Clotting disorder Dementia Hyperlipidemia Chronic kidney disease (CKD) Suicide Anesthesia complication Bleeding disorder Stroke Social History Smoking and tobacco/nicotine status: current every day tobacco/nicotine user cigarettes Packs smoked per day: 0.25 and smokeless tobacco Smokeless tobacco user: chewing tobacco Quit status (tobacco/nicotine): has quit using Former quit date comment: quit cigarettes on 11/19/22 Alcohol intake: former Former alcohol use details: quit 08/05/22 Substance/Drug Use: former Date of last use: 07/23/22, meth, cocaine, heroin, opioids Lives independently: Yes Marital status: Single Current occupational status: unemployed Current gender identity: Male Physical Exam 2 Const: GENERAL APPEARANCE: cooperative (mostly); not ill appearing and not frail appearing HENMT: COMMON NORMALS: normocephalic, atraumatic and Normal external nose present HEAD & SCALP: normocephalic and atraumatic FACE & SINUS: normal facial exam and face symmetric NOSE: Normal external nose present Eye: COMMON NORMALS: Equal, round and reactive pupils present and EOMs intact bilaterally PUPIL: Yes Equal, round and reactive pupils present Neck/C-Spine: GENERAL: Yes trachea midline Chest: CHEST: Yes Symmetrical chest wall rise Resp: COMMON NORMALS: normal respiratory effort, No retractions, No use of accessory muscles and clear to auscultation bilaterally AUSCULTATION: clear to auscultation bilaterally Cardio: COMMON NORMALS: regular rhythm RATE: tachycardic RHYTHM: regular rhythm GI: COMMON NORMALS: Normal to inspection, nondistended, normoactive bowel sounds present Extremity: COMMON NORMALS: no pedal edema Neuro: FLYNN COMA SCALE: document GCS findings (after medication) Flynn coma scale eye opening: To pressure Flynn coma scale verbal response: Confused Rosenberg coma scale motor response: Localising Rosenberg coma scale total score: 11 SENSORY EXAM: Yes extremities (intact) Psych: COMMON NORMALS: speech normal SPEECH: Yes normal speech Course 2 Vital Signs: Vital signs: Vital Signs Temperature 98 F 05/20/24 20:18 Pulse Rate 73 05/21/24 06:00 Respiratory Rate 18 05/21/24 06:00 Blood Pressure 125/93 05/21/24 06:00 Pulse Oximetry 93 05/21/24 06:00 Oxygen Delivery Me thod Room Air 05/21/24 06:00 MDM - Altered Mental Status Medical Decision Making Patient was anxious and mildly agitated on arrival. He was medicated with Ativan and Geodon. He is resting comfortably. Vital signs remained stable. He is mildly tachycardic, likely from substance abuse. He has not been suicidal or homicidal. This patient continued to rest. Vitals remained stable. He was discharged in improved condition. He will return for problems. Lab Data 05/20/24 21:01 05/20/24 21:01 Laboratory Results WBC 7.46 10^3/uL (3.29-11.43) 05/20/24 21: RBC 4.35 10^6/uL (3.85-5.65) 05/20/24 21:01 Hgb 13.20 g/dL (11.27-16.99) 05/20/24 21: Hct 38.8 % (37-53) 05/20/24 21: MCV 89.2 fl (82-101) 05/20/24 21: MCH 30.3 pg (27-33) 05/20/24 21: MCHC 34.0 g/dL (30-55) 05/20/24 21:01 RDW 12.4 % (12.1-15.1) 05/20/24 21: Plt Count 237 10^3/cmm (157-399) 05/20/24 21:01 MPV 9.4 fL (7.4-10.4) 05/20/24 21:01 Neut % (Auto) 72.7 % 05/20/24 21:01 Lymph % (Auto) 16.6 % 05/20/24 21:01 [place] % (Auto) 9.2 % 05/20/24 21:01 Eos % (Auto) 0.9 % 05/20/24 21:01 Baso % (Auto) 0.3 % 05/20/24 21:01 Neut # (Auto) 5.42 10^3/uL (1.8-7.7) 05/20/24 21:01 Lymph # (Auto) 1.2 10^3/uL (0.8-4.8) 05/20/24 21:01 [place] # (Auto) 0.7 10^3/uL (0.2-0.9) 05/20/24 21:01 Eos # (Auto) 0.1 10^3/uL (0.0-0.8) 05/20/24 21:01 Baso # (Auto) 0.0 10^3/uL (0.0-0.1) 05/20/24 21:01 Nucleated RBC % (auto) 0 % 05/20/24 21:01 Nucleated RBCs # 0.0 /100WBC 05/20/24 21:01 Sodium 142 mmol/L (136-145) 05/20/24 21:01 Potassium 3.2 mmol/L (3.5-5.1) L 05/20/24 21:01 Chloride 106 mmol/L (98-107) 05/20/24 21:01 Carbon Dioxide 20 mmol/L (22-29) L 05/20/24 21:01 Anion Gap 19.2 (5-19) H 05/20/24 21:01 BUN 17 mg/dL (6-20) 05/20/24 21:01 Creatinine 1.1 mg/dL (0.7-1.2) 05/20/24 21:01 GFR Calculation 70.9 mL/min (90-130) L 05/20/24 21:01 Glucose 116 mg/dL (65-115) H 05/20/24 21:01 Calculated Osmolality 297 mOsm/kg (285-295) H 05/20/24 21:01 Calcium 8.5 mg/dL (8.5-10.5) 05/20/24 21:01 Total Bilirubin 0.6 mg/dL (0.15-1.2) 05/20/24 21:01 AST 45 U/L (0-40) H 05/20/24 21:01 ALT 27 U/L (0-41) 05/20/24 21:01 Alkaline Phosphatase 74 U/L (40-130) 05/20/24 21:01 Total Protein 7.0 g/dL (6.6-8.7) 05/20/24 21:01 Albumin 4.1 g/dL (3.5-5.2) 05/20/24 21:01 Globulin 2.9 g/dL (1.3-4.6) 05/20/24 21:01 Salicylates < 0.3 mg/dL (3-10) L 05/20/24 21:01 Acetaminophen < 5.0 ug/mL (10-30) L 05/20/24 21:01 Ethyl Alcohol 11 mg/dL (0-10) H 05/20/24 21:01 No radiology studies performed this visit Discharge Plan Discharge Patient Disposition: Home Clinical Impression: Delirium due to methamphetamine intoxication Condition: Stable Prescriptions: No Action buspirone 7.5 mg tablet 7.5 mg PO BID Qty: 60 0RF cyclobenzaprine 10 mg tablet 10 mg PO TID PRN (Reason: muscle spasm) Qty: 60 0RF prednisone 20 mg tablet 40 mg PO DAILY 5 Days Qty: 10 0RF meloxicam 15 mg tablet 15 mg PO DAILY Qty: 30 0RF ondansetron HCl 4 mg tablet 4 mg PO Q8H PRN (Reason: nausea and vomiting) Qty: 30 0RF meclizine 25 mg tablet 25 mg PO BID PRN (Reason: dizziness) Qty: 30 0RF cetirizine [Zyrtec] 10 mg tablet 10 mg PO DAILY Qty: 90 1RF fluticasone propionate [Flonase Allergy Relief] 50 mcg/actuation spray,suspension 2 spray intranasal DAILY Qty: 16 2RF Rx Instructions: administer into each nostril aspirin 81 mg tablet,delayed release (DR/EC) 81 mg PO DAILY 90 Days Qty: 90 1RF atorvastatin 40 mg tablet 40 mg PO BEDTIME 30 Days Qty: 90 1RF Augmentin 500-125 mg tablet 1 tab PO BID Qty: 14 0RF Discharge Orders: Discharge ED (Routine); Ordered 05/21/24 Ordered By: Rudolph Rosario Referrals: Blanco Amaro MD [Primary Care Provider] - 1-3 days Patient Instructions: Methamphetamine Use Disorder (ED), Altered Mental Status (ED), Opioid Safety, Pain Management Coding 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
[2024-05-20 22:30] VITALS: PULSE 105; O2SAT 94
[2024-05-20 23:00] VITALS: PULSE 100; O2SAT 95
[2024-05-20 23:30] VITALS: PULSE 92; O2SAT 96
[2024-05-21] VITALS: PULSE 84; O2SAT 100
[2024-05-21 04:00] VITALS: BP 135/84; PULSE 78; RESP 19; O2SAT 100
[2024-05-21 05:00] VITALS: BP 118/74; PULSE 74; RESP 21; O2SAT 99
[2024-05-21 06:00] VITALS: BP 125/93; PULSE 73; RESP 18; O2SAT 93
== END 2024-05-21 08:44 | disposition home or self-care (01) ==
PROVIDERS: Emergency Medicine; Emergency Provider Emergency Medicine; PCP Family Medicine
DX: F15.121 Other stimulant abuse with intoxication delirium (principal); Z79.82 Long term (current) use of aspirin; F17.210 Nicotine dependence, cigarettes, uncomplicated; F17.220 Nicotine dependence, chewing tobacco, uncomplicated; I50.9 Heart failure, unspecified; Z86.19 Personal history of other infectious and parasitic diseases
CPT/HCPCS: 36415; 80053; 80307; 85025; 96372; 99284; J2060; J3486

== ENCOUNTER 2024-09-24 09:36 | Inpatient (IN) | payer MEDICAID, SELFPAY ==
[2024-09-24] VITALS (9 sets, daily range): BP systolic 110–129; BP diastolic 68–86; PULSE 87–106; RESP 16–33; TEMP 36.8–38.4; O2SAT 91–97; BMI 29.1
--- NOTE | 2024-09-24 09:51 | XRR_ITS ---
PROCEDURE INFORMATION: Exam: XR Chest Exam date and time: 09/24/2024 9:57 AM Age: 48 years old Clinical indication: Cough and dyspnea; Additional info: Dyspnea/cough TECHNIQUE: Imaging protocol: Radiologic exam of the chest. Views: 1 view. COMPARISON: CR XR chest 1V portable [id number] 04/10/2024 2:22 AM FINDINGS: Lungs: Unremarkable. No consolidation. Pleural spaces: Unremarkable. No pleural effusion. No pneumothorax. Heart/Mediastinum: Unremarkable. No cardiomegaly. Bones/joints: Unremarkable. XR/XR chest 1V portable [id number] IMPRESSION: No acute cardiopulmonary process.
--- NOTE | 2024-09-24 10:03 | ECG_ITS ---
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 Measurements Intervals [place] Rate: 104 P: 52 [place]: 140 QRS: -11 QRSD: 110 T: 33 QT: 346 QTc: 455 Interpretive Statements SINUS TACHYCARDIA POSSIBLE LEFT ATRIAL ENLARGEMENT [-0.1mV P-WAVE IN V1/V2] SEPTAL MYOCARDIAL INFARCTION , OF INDETERMINATE AGE [40+ ms Q WAVE IN V1/V2] INTERPRETATION BASED ON A DEFAULT AGE OF 40 YEARS Diffuse nonspecific T wave changes in the precordial leads Compared to ECG 04/10/2024 03:21:21 Myocardial infarct finding now present Sinus rhythm no longer present Intraventricular conduction delay no longer present T-wave abnormality no longer present Possible ischemia no longer present Electronically Signed On 09-24-2024 21:25:22 YARD CLEANER by Cristiane Prince M.D. [id number]
--- NOTE | 2024-09-24 10:03 | ED_ITS ---
HPI - Weakness 2 General: Chief complaint: Weakness Stated complaint: sob Time Seen by Provider: 09/24/24 09:49 History of Present Illness: 48-year-old male presents emergency room complaining just generally does not feel well. Is complaining some chest tightness. Patient reports that several days ago he injected what he thought was methamphetamine but he is not entirely sure. He has been anxious and restless since then has been tightness. No fever sweats or chills no shortness of breath no abdominal pain no vomiting or diarrhea. Patient has a history of alcohol abuse as well as IV drug abuse. Additionally does have history of hepatitis C. Associated symptoms: Reports chest pain; Denies chills, dysuria or fever(s) Review of Systems 2 Const: Denies: fever(s) or chills Card: Reports: chest pain Resp: Denies: dyspnea GI: Denies: abdominal pain : Denies: dysuria, urinary frequency or urinary urgency Musc: Denies: neck pain or back pain Skin/Breast: Denies: rash PFSH ED 2 PFSH: Medical History Anxiety Heart failure, left, 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% History of back injury 2006, spinal fusion Hepatitis C Methamphetamine abuse Intravenous drug abuse Cardiomyopathy Acute right arterial ischemic stroke, middle cerebral artery (MCA) Substance abuse Surgical History History of back surgery History of lymph node excision groin area History of hand surgery Family History Grandmother Cancer breast Hypertension Mother Lung disease Other Altered mental status Psychiatric illness Denies family history of Diabetes CAD (coronary artery disease) Clotting disorder Dementia Hyperlipidemia Chronic kidney disease (CKD) Suicide Anesthesia complication Bleeding disorder Stroke Social History Smoking and tobacco/nicotine status: current every day tobacco/nicotine user cigarettes Packs smoked per day: 0.25 Number of cigarettes per day: 6-10 and smokeless tobacco Smokeless tobacco user: chewing tobacco Alcohol intake: current Substance/Drug Use: current Lives independently: Yes Marital status: Single Current occupational status: unemployed Current gender identity: Male Physical Exam 2 Const: GENERAL APPEARANCE: cooperative ORIENTATION/CONSCIOUSNESS: Yes awake, Yes oriented to person, Yes oriented to place and Yes oriented to time HENMT: COMMON NORMALS: normocephalic, atraumatic and hearing grossly normal bilaterally HEAD & SCALP: normocephalic and atraumatic Resp: COMMON NORMALS: normal respiratory effort, No retractions, No use of accessory muscles and clear to auscultation bilaterally AUSCULTATION: clear to auscultation bilaterally Cardio: COMMON NORMALS: regular rate, regular rhythm and No murmurs present (Cardio) RATE: regular rate RHYTHM: regular rhythm GI: COMMON NORMALS: Soft to palpation and No hepatosplenomegaly present A USCULTATION: Yes normoactive bowel sounds PALPATION: Yes Soft to palpation, No Tenderness to palpation present (GI), No Guarding due to palpation present (GI) and Yes No hepatosplenomegaly present Extremity: COMMON NORMALS: normal to inspection, capillary refill normal, no clubbing, cyanosis or edema, no calf tenderness and no pedal edema Neuro: SENSORIUM/ORIENTATION: Yes oriented to person, Yes oriented to place and Yes oriented to time Skin: COMMON NORMALS: no rashes or lesions noted GENERAL SKIN EXAM: no rashes or lesions noted Course 2 Vital Signs: Vital signs: Vital Signs Temperature 101.1 F H 09/24/24 12:12 Pulse Rate 87 09/24/24 12:12 Respiratory Rate 16 09/24/24 12:01 Blood Pressure 129/86 09/24/24 12:12 Pulse Oximetry 94 09/24/24 12:12 Oxygen Delivery Me thod Room Air 09/24/24 12:12 MDM - Weakness Medical Decision Making Clinically patient is under the influence of methamphetamine. He admits to recently using he thinks it was spiked this LDLs but he is not sure he injected it is no signs of acute infection. Blood cultures were done. He does have rhabdomyolysis. He also has a cardiomyopathy with a low ejection fraction. Given a small fluid bolus discussed Dr. Gates will monitor the patient on observation orders written. Medical Records I reviewed the patient's medical records. Lab Data I reviewed the patient's lab results. 09/24/24 10:00 09/24/24 10:00 Radiology Impressions Chest X-Ray 09/24/24 09:51 IMPRESSION: No acute cardiopulmonary process. Head CT 09/24/24 14:19 IMPRESSION: 1. Findings suggestive of ethmoid and sphenoid sinusitis. 2. No large territorial infarct or intracranial bleed. No abnormal enhancement or intracranial abscess formation. Laboratory Results WBC 10.87 10^3/uL (3.29-11.43) 09/24/24 10:00 RBC 4.68 10^6/uL (3.85-5.65) 09/24/24 10:00 Hgb 14.30 g/dL (11.27-16.99) 09/24/24 10:00 Hct 39.7 % (37-53) 09/24/24 10:00 MCV 84.8 fl (82-101) 09/24/24 10:00 MCH 30.6 pg (27-33) 09/24/24 10:00 MCHC 36.0 g/dL (30-55) 09/24/24 10:00 RDW 12.3 % (12.1-15.1) 09/24/24 10:00 Plt Count 145 10^3/cmm (157-399) L 09/24/24 10:00 MPV 10.0 fL (7.4-10.4) 09/24/24 10:00 Neut % (Auto) 75.5 % 09/24/24 10:00 Lymph % (Auto) 15.8 % 09/24/24 10:00 [place] % (Auto) 7.8 % 09/24/24 10:00 Eos % (Auto) 0.0 % 09/24/24 10:00 Baso % (Auto) 0.1 % 09/24/24 10:00 Neut # (Auto) 8.20 10^3/uL (1.8-7.7) H 09/24/24 10:00 Lymph # (Auto) 1.7 10^3/uL (0.8-4.8) 09/24/24 10:00 [place] # (Auto) 0.9 10^3/uL (0.2-0.9) 09/24/24 10:00 Eos # (Auto) 0.0 10^3/uL (0.0-0.8) 09/24/24 10:00 Baso # (Auto) 0.0 10^3/uL (0.0-0.1) 09/24/24 10:00 Nucleated RBC % (auto) 0 % 09/24/24 10:00 Nucleated RBCs # 0.0 /100WBC 09/24/24 10:00 Sodium 129 mmol/L (136-145) L 09/24/24 10:00 Potassium 3.0 mmol/L (3.5-5.1) L 09/24/24 10:00 Chloride 92 mmol/L (98-107) L 09/24/24 10:00 Carbon Dioxide 23 mmol/L (22-29) 09/24/24 10:00 Anion Gap 17.0 (5-19) 09/24/24 10:00 BUN 13 mg/dL (6-20) 09/24/24 10:00 Creatinine 1.0 mg/dL (0.7-1.2) 09/24/24 10:00 GFR Calculation 79.1 mL/min (90-130) L 09/24/24 10:00 Glucose 125 mg/dL (65-115) H 09/24/24 10:00 Calculated Osmolality 270 mOsm/kg (285-295) L 09/24/24 10:00 Calcium 8.3 mg/dL (8.5-10.5) L 09/24/24 10:00 Total Bilirubin 0.6 mg/dL (0.15-1.2) 09/24/24 10:00 AST 107 U/L (0-40) H 09/24/24 10:00 ALT 54 U/L (0-41) H 09/24/24 10:00 Alkaline Phosphatase 45 U/L (40-130) 09/24/24 10:00 Creatine Kinase 3932 U/L (39-308) H* 09/24/24 10:00 Troponin T Baseline 11 ng/L (0-15) 09/24/24 10:00 Total Protein 7.0 g/dL (6.6-8.7) 09/24/24 10:00 Albumin 4.0 g/dL (3.5-5.2) 09/24/24 10:00 Globulin 3.0 g/dL (1.3-4.6) 09/24/24 10:00 Urine Color Yellow (Yellow) 09/24/24 10:20 Urine Appearance Clear (CLEAR) 09/24/24 10:20 Urine pH Not Reportable 09/24/24 10:20 Ur Specific [place] Not Reportable 09/24/24 10:20 Urine Protein Not Reportable 09/24/24 10:20 Urine Glucose (UA) Not Reportable 09/24/24 10:20 Urine Ketones Not Reportable 09/24/24 10:20 Urine Blood Not Reportable 09/24/24 10:20 Urine Nitrate Not Reportable 09/24/24 10:20 Urine Bilirubin Not Reportable 09/24/24 10:20 Urine Urobilinogen Not Reportable 09/24/24 10:20 Ur Leukocyte Esterase Not Reportable 09/24/24 10:20 Urine RBC Rare /hpf (0-2) 09/24/24 10:20 Urine WBC 0-4 /hpf (0-5) H 09/24/24 10:20 Ur Squamous Epith Cells 0-4 /hpf (0-5) H 09/24/24 10:20 Amorphous Sediment Trace /hpf 09/24/24 10:20 Urine Bacteria 1+ /hpf (NONE) H 09/24/24 10:20 Hyaline Casts 0-4 /lpf H 09/24/24 10:20 Fine Granular Casts 0-4 /lpf H 09/24/24 10:20 Urine Mucus 1+ /hpf 09/24/24 10:20 Ur Oval Fat Bodies 2+ /hpf 09/24/24 10:20 Salicylates < 0.3 mg/dL (3-10) L 09/24/24 10:00 Urine Opiates Screen Negative ng/mL (Negative) 09/24/24 10:20 Acetaminophen < 5.0 ug/mL (10-30) L 09/24/24 10:00 Ur Barbiturates Screen Negative ng/mL (Negative) 09/24/24 10:20 Ur Phencyclidine Scrn Negative ng/mL (Negative) 09/24/24 10:20 Ur Amphetamines Screen Positive ng/mL (Negative) H 09/24/24 10:20 U Benzodiazepines Scrn Negative ng/mL (Negative) 09/24/24 10:20 Urine Cocaine Screen Negative ng/mL (Negative) 09/24/24 10:20 U Marijuana (THC) Screen Negative ng/mL (Negative) 09/24/24 10:20 Ethyl Alcohol < 10 mg/dL (0-10) 09/24/24 10:00 All radiology interpretation(s) finalized by discharge Discharge Plan Discharge Patient Disposition: Placed in Observation Admit Provider: Carlos Gates Clinical Impression: Rhabdomyolysis, Cardiomyopathy, Methamphetamine abuse, Hepatitis C 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 Level of Care 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
[2024-09-24 10:15] LABS: Basophils % 0.1 %; Hematocrit 39.7 % (37-53); Lymphocytes # 1.7 10^3/uL (0.8-4.8); Lymphocytes % 15.8 %; Mean Corpuscular Hemoglobin 30.6 pg (27-33); Mean Corpuscular Volume 84.8 fl (82-101); Monocytes # 0.9 10^3/uL (0.2-0.9); Monocytes % 7.8 %; Neutrophils % 75.5 %; Nucleated Red Blood Cells % 0 %; Platelet Count 145 10^3/cmm (157-399); Red Blood Count 4.68 10^6/uL (3.85-5.65); Red Cell Distribution Width 12.3 % (12.1-15.1); White Blood Count 10.87 10^3/uL (3.29-11.43)
[2024-09-24 10:26] LABS: Troponin(5th) Baseline 11 ng/L (0-15)
[2024-09-24 10:29] LABS: Alanine Aminotransferase 54 U/L (0-41); Alkaline Phosphatase 45 U/L (40-130); Aspartate Amino Transferase 107 U/L (0-40); Blood Urea Nitrogen 13 mg/dL (6-20); Calcium 8.3 mg/dL (8.5-10.5); Carbon Dioxide 23 mmol/L (22-29); Chloride 92 mmol/L (98-107); Glomerular Filtration Rate 79.1 mL/min (90-130); Glucose 125 mg/dL (65-115); Osmolality Calculated 270 mOsm/kg (285-295); Sodium 129 mmol/L (136-145); Total Bilirubin 0.6 mg/dL (0.15-1.2)
[2024-09-24 10:31] LABS: Add Urine Microscopic? YES; UA Manual Slide Review YES; UA Slide Review UA Slide Review Perf; Urine Appearance Clear (CLEAR); Urine Color Yellow (Yellow)
[2024-09-24 10:33] LABS: Amorphous Sediment Urine TRACE /hpf; Fine Granular Casts Urine 0-4 /lpf; Hyaline Casts Urine 0-4 /lpf
[2024-09-24 10:34] LABS: Amphetamines Screen Urine Positive (Negative); Barbiturates Screen Urine Negative (Negative); Benzodiazepines Screen Urine Negative (Negative); Cocaine Screen Urine Negative (Negative); Opiate Screen Urine Negative (Negative); PCP Screen Urine Negative (Negative); RBC Urine RARE /hpf (0-2); THC Screen Urine Negative (Negative); WBC Urine 0-4 /hpf (0-5)
[2024-09-24 10:35] LABS: Add Urine Culture? No; Bacteria Urine 1+ /hpf; Mucus Urine 1+ /hpf; Oval Fat Bodies Urine 2+ /hpf; Squamous Epithelial Cell Urine 0-4 /hpf (0-5)
[2024-09-24 10:37] LABS: Acetaminophen < 5.0 ug/mL (10-30); Alcohol Level < 10 mg/dL (0-10); Salicylate < 0.3 mg/dL (3-10)
[2024-09-24 10:42] LABS: Creatine Phosphokinase 3932 U/L (39-308)
[2024-09-24] MEDS: sodium chloride 0.9% 1,000 ML 999 ML IV (11:35)
[2024-09-24] MEDS: LORazepam 2 mg/mL INJ 1 mL 1 MG IVP (11:35)
--- NOTE | 2024-09-24 12:03 | ECG_ITS ---
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 Measurements Intervals [place] Rate: 89 P: 60 [place]: 159 QRS: -8 QRSD: 109 T: 12 QT: 360 QTc: 439 Interpretive Statements SINUS RHYTHM WITH OCCASIONAL SUPRAVENTRICULAR PREMATURE COMPLEXES NONSPECIFIC T-WAVE ABNORMALITY Compared to ECG 09/24/2024 09:45:08 T-wave abnormality now present Sinus tachycardia no longer present Myocardial infarct finding no longer present Electronically Signed On 09-24-2024 21:34:36 OPTICAL INSTRUMENT INSPECTOR by Cristiane Prince M.D. [id number]
[2024-09-24 12:39] LABS: Troponin 5 2HR 8.31 ng/L (0-15)
[2024-09-24] MEDS: sodium chloride 0.9% 500 ML IV (12:50)
[2024-09-24 13:16] LABS: Troponin 5 2HR Delta -2.69 ABS# (0-10)
--- NOTE | 2024-09-24 14:19 | CTR_ITS ---
PROCEDURE INFORMATION: Exam: CT Head With Contrast Exam date and time: 09/24/2024 2:51 PM Age: 48 years old Clinical indication: Patient HX: Fever; AMS; Additional info: Fever, AMS TECHNIQUE: Imaging protocol: Computed tomography of the head with intravenous contrast. Radiation optimization: All CT scans at this facility use at least one of these dose optimization techniques: automated exposure control; mA and/or kV adjustment per patient size (includes targeted exams where dose is matched to clinical indication); or iterative reconstruction. Contrast material: [id number]; Contrast volume: 80 ml; Contrast route: INTRAVENOUS (IV); COMPARISON: CT head wo con* [id number] 11/20/2023 5:01 PM RADIATION DOSE METRICS: Total DLP (mGy-cm): 1193.08 FINDINGS: Brain: Unremarkable white matter. No mass effect. No abnormal enhancing lesions. Cerebral ventricles: Unremarkable. No ventriculomegaly. Bones/joints: Unremarkable. No acute fracture. Paranasal sinuses: Mild mucosal disease of the right maxillary sinus, bilateral sphenoid sinuses and bilateral ethmoid air cells. Mastoid air cells: Visualized mastoid air cells are well aerated. Soft tissues: Unremarkable. CT/CT head w con [id number] IMPRESSION: 1. Findings suggestive of ethmoid and sphenoid sinusitis. 2. No large territorial infarct or intracranial bleed. No abnormal enhancement or intracranial abscess formation.
--- NOTE | 2024-09-24 14:23 | P.HP_ITS ---
Providers/Chief Complaint 2 Admitting Physician: Carlos Gates Primary Care Provider: Blanco Amaro MD Chief Complaint: sob History of Present Illness 48-year-old gentleman with history of hepatitis C, cardiomyopathy, EF 35-40%, intravenous substance use, CVA, came in feeling unwell to the ER, states has been feeling unwell with malaise, some cough, anxiety and restlessness, for about 2 days, reported injecting recreational substance which he thought was methamphetamine, but feels it was something else may be because of feeling so unwell. In ER he is found with tachypnea, sinus tachycardia, restless, received Ativan. During my evaluation he is lethargic. Tells me has not been feeling well for the last 2 days. Shows the injection site to be in the left antecubital fossa. Has not noticed any issue there. Review of Systems 2 General: Reports: ROS unobtainable due to mental status Medications/Allergies Home Medications Medication Instructions Recorded Confirmed Last Taken Type aspirin 81 mg tablet,delayed 81 mg PO DAILY 90 days #90 tabs 11/05/22 09/24/24 09/23/24 Rx release cetirizine 10 mg tablet (Zyrtec) 10 mg PO DAILY #90 tabs 11/26/23 09/24/24 09/23/24 Rx atorvastatin 40 mg tablet 40 mg PO BEDTIME 30 days #90 tabs 01/18/24 09/24/24 09/23/24 Rx ibuprofen 200 mg tablet (Advil) 800 mg PO Q6H PRN Pain 09/24/24 09/24/24 09/23/24 History Allergies Allergy/AdvReac Type Severity Reaction Status Date / Time fentanyl Allergy Mild ALGY-Rash Verified 09/19/24 10:14 morphine Allergy Unknown Verified 09/19/24 10:14 PFSH Acute 2 PFSH: Medical History Anxiety Heart failure, left, 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% History of back injury 2006, spinal fusion Hepatitis C Methamphetamine abuse Intravenous drug abuse Cardiomyopathy Acute right arterial ischemic stroke, middle cerebral artery (MCA) Substance abuse Surgical History History of back surgery History of lymph node excision groin area History of hand surgery Family History Grandmother Cancer breast Hypertension Mother Lung disease Other Altered mental status Psychiatric illness Denies family history of Diabetes CAD (coronary artery disease) Clotting disorder Dementia Hyperlipidemia Chronic kidney disease (CKD) Suicide Anesthesia complication Bleeding disorder Stroke Social History Smoking and tobacco/nicotine status: current every day tobacco/nicotine user cigarettes Packs smoked per day: 0.25 Number of cigarettes per day: 6-10 and smokeless tobacco Smokeless tobacco user: chewing tobacco Alcohol intake: current Substance/Drug Use: current Lives independently: Yes Marital status: Single Current occupational status: unemployed Current gender identity: Male Vitals/I&O/Wt Last Vital Signs Temp 101.1 F H 09/24/24 12:12 Pulse 87 09/24/24 12:12 Resp 16 09/24/24 12:01 BP 129/86 09/24/24 12:12 Pulse Ox 94 09/24/24 12:12 O2 Del Method Room Air 09/24/24 12:12 09/23/24 09/24/24 09/24/24 22:59 06:59 14:59 Intake Total 1500 / 1500 Balance 1500 / 1500 Weight last 48 hrs Weight 97.522 kg Weight 97.522 kg Physical Exam 2 Const: GENERAL APPEARANCE: cooperative ORIENTATION/CONSCIOUSNESS: Yes lethargic HENMT: COMMON NORMALS: oropharynx normal Neck/C-Spine: COMMON NORMALS: no JVD Resp: COMMON NORMALS: normal respiratory effort and clear to auscultation bilaterally AUSCULTATION: clear to auscultation bilaterally Cardio: COMMON NORMALS: no JVD, regular rhythm, S1 normal heart sound present, S2 normal heart sound present and No murmurs present (Cardio) RATE: t achycardic RHYTHM: regular rhythm HEART SOUNDS: S1 normal heart sound present and S2 normal heart sound present GI: COMMON NORMALS: Normal to inspection, nondistended, normoactive bowel sounds present, Soft to palpation and non-tender PALPATION: Yes Soft to palpation Extremity: COMMON NORMALS: no joint enlargement and no pedal edema OTHER: No erythema, swelling, warmth of left antecubital fossa. Neuro: COMMON NORMALS: patient oriented x3 and moves all extremities S ENSORIUM/ORIENTATION: Yes alert Skin: COMMON NORMALS: no rashes or lesions noted GENERAL SKIN EXAM: no rashes or lesions noted Data 09/24/24 10:00 09/24/24 10:00 Micro: Microbiology 09/24/24 10:03 Blood Culture - Preliminary Blood SPECIMEN COLLECTED 09/24/24 10:00 Blood Culture - Preliminary Blood SPECIMEN COLLECTED A&P Assessment and plan (1) Altered mental status: Anxiety, restlessness, but also has been having malaise, mild cough, not feeling well over the last 2 days after injection of a intravenous substance he thought was methamphetamine. In ER with tachycardia, tachypnea, anxiety, restlessness. Acute encephalopathy possibly toxic secondary to substance intoxication with methamphetamine. Shortly after admission to the floor also with fever one 101.1 Fahrenheit. Reviewed vitals, CBC, CMP, CK, liver parameters, troponin, UA, UDS, EKG, and monitor patient with sinus tachycardia, T wave flattening anterior laterally in precordial leads, pending official read, ER note, discussed with ER provider. Until mental status with possible intoxication with UDS positive for methamphetamine, however, unclear if there was some contamination, versus possible infection given fever. Blood cultures collected. With altered mental status will assess CT head with contrast. Follow-up pending coronavirus, A1c, RSV PCR. For now we will give empiric antibiotic coverage with Zosyn, linezolid. Monitor for risk of agranulocytosis, severe cytopenias. C. difficile. (2) Fever: Follow-up respiratory viral studies. Reviewed again, just came back positive for influenza A. Will start Tamiflu. Blood cultures requested with IVDU. For now empiric antibiotic with Zosyn, linezolid. Acetaminophen, ibuprofen as needed. Zofran as needed. (3) Intravenous drug abuse: No redness, swelling at the site of injection. Follow-up blood culture. Encourage cessation. Monitor for any signs of withdrawal. Check HIV. Hepatitis panel (4) Methamphetamine abuse: As above. Plan Rhabdomyolysis: CK 3932. After methamphetamine use. Received small bolus of fluid in ER. Recheck CK. Caution with fluid resuscitation given cardiomyopathy, EF 35-40%. Cardiomyopathy: EF 35-40% History of hepatitis C Attestations 2 Medical Necessity Statement*: Place in observation for additional assessment and management of altered mental status, intoxication after methamphetamine use, influenza A infection, assessment of possible bacterial infection with intravenous substance use. Diagnoses Altered mental status R41.82 Fever R50.9 Intravenous drug abuse F19.10 Methamphetamine abuse F15.10
[2024-09-24 14:53] LABS: Covid PCR NEGATIVE (Negative); Influenza A POSITIVE (Negative); Influenza B NEGATIVE (Negative); Respiratory Syncytial Virus Ce NEGATIVE (Negative)
[2024-09-24] MEDS: iohexol 350 mg/mL 500 mL Btl (per mL) IV (15:03)
[2024-09-24] MEDS: enoxaparin 40 mg/0.4 mL Syringe SUBCUT (15:44)
[2024-09-24] MEDS: oseltamivir phosphate 75 mg Capsule PO (15:45)
[2024-09-24] MEDS: piperacillin-tazobactam 3.375 GM in sodium chloride 0.9% (plus) 50 ML IV ×2 (15:45→22:31)
[2024-09-24] MEDS: linezolid premix 600 MG/300 ML PREMIX 300 MG IV (15:45)
--- NOTE | 2024-09-24 16:03 | ECG_ITS ---
[facility] Test Date: 2024-09-24 Pat Name: Ava Whitaker Department: Room: 270 Gender: Male [employer]: : 1975 Requested By: Cristofer Cornelius Order Number: [id number] Fina MD: Cristiane Prince M.D. Measurements Intervals [place] Rate: 94 P: 58 CA: 153 QRS: -19 QRSD: 109 T: 34 QT: 349 QTc: 438 Interpretive Statements SINUS RHYTHM WITH OCCASIONAL SUPRAVENTRICULAR PREMATURE COMPLEXES NONSPECIFIC T-WAVE ABNORMALITY Compared to ECG 09/24/2024 12:08:50 No significant changes Electronically Signed On 09-24-2024 21:35:11 SKI PATROL by Cristiane Prince M.D. [email or web address]
[2024-09-24 16:13] LABS: Hepatitis A Antibody IgM Non-Reactive (Nonreactive); Hepatitis B Core IgM Non-Reactive (Nonreactive); Hepatitis B Surface Antigen Non-Reactive (Nonreactive)
[2024-09-24 16:15] LABS: HIV 1 & 2 Antibody Non-Reactive (Non-Reactiv); HIV 1 & 2 Antigen Non-Reactive (Non-Reactiv)
[2024-09-24 16:42] LABS: Hepatitis C Virus Antibody Reactive (Nonreactive)
[2024-09-24 17:02] LABS: Troponin 5 6HR 9.48 ng/L (0-15)
[2024-09-24 17:05] LABS: Troponin 5 6HR Delta -1.52 ng/L (0-12)
[2024-09-25] VITALS (7 sets, daily range): BP systolic 108–121; BP diastolic 68–77; PULSE 69–86; RESP 14–22; TEMP 36.6–37.7; O2SAT 91–98
[2024-09-25] MEDS: linezolid premix 600 MG/300 ML PREMIX 300 MG IV ×2 (02:49→15:42)
[2024-09-25 04:44] LABS: Basophils % 0.1 %; Hematocrit 38.3 % (37-53); Lymphocytes # 1.5 10^3/uL (0.8-4.8); Lymphocytes % 22.1 %; Mean Corpuscular Hemoglobin 30.2 pg (27-33); Mean Corpuscular Volume 86.3 fl (82-101); Mean Platelet Volume 10.7 fL (7.4-10.4); Monocytes # 0.4 10^3/uL (0.2-0.9); Monocytes % 5.8 %; Neutrophils # 4.73 10^3/uL (1.8-7.7); Neutrophils % 70.7 %; Nucleated Red Blood Cells % 0 %; Platelet Count 138 10^3/cmm (157-399); Red Blood Count 4.44 10^6/uL (3.85-5.65); Red Cell Distribution Width 12.5 % (12.1-15.1)
[2024-09-25 05:30] LABS: Creatine Phosphokinase 1810 U/L (39-308)
[2024-09-25 05:51] LABS: Alanine Aminotransferase 41 U/L (0-41); Albumin Level 3.3 g/dL (3.5-5.2); Alkaline Phosphatase 39 U/L (40-130); Aspartate Amino Transferase 67 U/L (0-40); Blood Urea Nitrogen 10 mg/dL (6-20); Carbon Dioxide 27 mmol/L (22-29); Chloride 97 mmol/L (98-107); Globulin 2.9 g/dL (1.3-4.6); Glomerular Filtration Rate 89.3 mL/min (90-130); Glucose 146 mg/dL (65-115); Osmolality Calculated 276 mOsm/kg (285-295); Sodium 132 mmol/L (136-145); Total Bilirubin 0.6 mg/dL (0.15-1.2); Total Protein 6.2 g/dL (6.6-8.7)
[2024-09-25] MEDS: piperacillin-tazobactam 3.375 GM in sodium chloride 0.9% (plus) 50 ML IV ×3 (06:22→23:51)
[2024-09-25] MEDS: potassium chloride ER 20 mEq Tablet 40 MEQ PO (09:38)
[2024-09-25] MEDS: oseltamivir phosphate 75 mg Capsule PO ×2 (09:38→17:35)
[2024-09-25] MEDS: cetirizine 10 mg Tablet PO (09:38)
[2024-09-25] MEDS: aspirin 81 mg EC Tablet PO (09:38)
[2024-09-25] MEDS: enoxaparin 40 mg/0.4 mL Syringe SUBCUT (14:16)
[2024-09-25] MEDS: acetaminophen 325 mg Tablet 650 MG PO (21:45)
--- NOTE | 2024-09-25 21:57 | P.PN_ITS ---
Subjective 2 Subjective: He is still feeling quite malaised. Not feeling well with generalized body ache. Sweats. He has history of hepatitis C for which he received treatment in the past. Vitals/I&O/Wt Last Vital Signs Temp 98.2 F 09/25/24 19:58 Pulse 78 09/25/24 19:58 Resp 16 09/25/24 19:58 BP 114/70 09/25/24 19:58 Pulse Ox 98 09/25/24 19:58 O2 Del Method Room Air 09/25/24 04:00 09/25/24 09/25/24 09/25/24 06:59 14:59 22:59 Intake Total 710 / 2560 285 / 285 585 / 870 Balance 710 / 2560 285 / 285 585 / 870 Weight last 48 hrs Weight 95.073 kg Weight 97.522 kg Weight 97.522 kg Physical Exam 2 Const: COMMON NORMALS: patient oriented x3 and alert GENERAL APPEARANCE: c ooperative and lethargic ORIENTATION/CONSCIOUSNESS: Yes lethargic HENMT: COMMON NORMALS: oropharynx normal Neck/C-Spine: COMMON NORMALS: no JVD Resp: COMMON NORMALS: normal respiratory effort and clear to auscultation bilaterally AUSCULTATION: clear to auscultation bilaterally Cardio: COMMON NORMALS: no JVD, regular rhythm, S1 normal heart sound present, S2 normal heart sound present and No murmurs present (Cardio) RATE: t achycardic RHYTHM: regular rhythm HEART SOUNDS: S1 normal heart sound present and S2 normal heart sound present GI: COMMON NORMALS: Normal to inspection, nondistended, normoactive bowel sounds present, Soft to palpation and non-tender PALPATION: Yes Soft to palpation Extremity: COMMON NORMALS: no joint enlargement and no pedal edema OTHER: No erythema, swelling, warmth of left antecubital fossa. Neuro: COMMON NORMALS: patient oriented x3 and moves all extremities S ENSORIUM/ORIENTATION: Yes alert and Yes lethargic Skin: COMMON NORMALS: no rashes or lesions noted GENERAL SKIN EXAM: no rashes or lesions noted Data 09/25/24 03:54 09/25/24 03:54 Micro: Microbiology 09/24/24 10:03 Blood Culture - Preliminary Blood NEGATIVE TO DATE 09/24/24 10:00 Blood Culture - Preliminary Blood NEGATIVE TO DATE A&P Assessment and plan (1) Altered mental status: With some improvement today, more alert and interactive, although still feeling very tired, malaise. CT head reviewed, unremarkable, but discussed with him with finding of ethmoid and sphenoid sinusitis. Continue empiric antibiotic. Blood cultures reviewed, so far negative. Continue treatment of influenza. Discussed with him intravenous substance use, he has been to rehabilitation 14 times in the past. Continue to encourage cessation. Continue empiric antibiotic coverage with Zosyn, linezolid. (2) Fever: Influenza A, discussed plan, continue treatment with Tamiflu. Blood cultures requested with IVDU, so far negative. For now empiric antibiotic with Zosyn, linezolid. Acetaminophen, ibuprofen as needed. Zofran as needed. (3) Intravenous drug abuse: No redness, swelling at the site of injection. Follow-up blood culture. Encourage cessation. He had previously been to rehabilitation 14 times. Monitor for any signs of withdrawal. Reviewed HIV. Reviewed hepatitis panel (4) Methamphetamine abuse: As above. Plan Rhabdomyolysis: CK improving. After methamphetamine use. Received small bolus of fluid in ER. Recheck CK. Caution with fluid resuscitation given cardiomyopathy, EF 35-40%. Cardiomyopathy: EF 35-40%. Does not appear to be in decompensated CHF currently. History of hepatitis C: He reports prior treatment. Pending HCVRNA, follow-up. Resumed aspirin, cetirizine. Attestations 2 Medical Necessity Statement*: Continue admission for assessment and management of fever, severe malaise and gentleman after intravenous substance use, follow-up of blood cultures, treatment of influenza A. Diagnoses Altered mental status R41.82 Fever R50.9 Intravenous drug abuse F19.10 Methamphetamine abuse F15.10
[2024-09-25] MEDS: ibuprofen 200 mg Tablet 400 MG PO (23:56)
[2024-09-26] VITALS: BP 115/75; PULSE 71; RESP 17; TEMP 36.9; O2SAT 95
[2024-09-26] MEDS: linezolid premix 600 MG/300 ML PREMIX 300 MG IV ×2 (03:46→16:14)
[2024-09-26 04:00] VITALS: BP 123/74; PULSE 60; RESP 18; TEMP 37; O2SAT 98
[2024-09-26 04:28] LABS: Basophils % 0.3 %; Eosinophils % 0.8 %; Hematocrit 39.9 % (37-53); Lymphocytes # 1.7 10^3/uL (0.8-4.8); Lymphocytes % 43.9 %; Mean Corpuscular HGB Conc 33.3 g/dL (30-55); Mean Corpuscular Volume 90.1 fl (82-101); Monocytes # 0.5 10^3/uL (0.2-0.9); Monocytes % 11.7 %; Neutrophils # 1.65 10^3/uL (1.8-7.7); Nucleated Red Blood Cells % 0 %; Platelet Count 140 10^3/cmm (157-399); Red Blood Count 4.43 10^6/uL (3.85-5.65); Red Cell Distribution Width 12.8 % (12.1-15.1); White Blood Count 3.83 10^3/uL (3.29-11.43)
[2024-09-26 04:49] LABS: Alanine Aminotransferase 37 U/L (0-41); Albumin Level 3.1 g/dL (3.5-5.2); Alkaline Phosphatase 38 U/L (40-130); Anion Gap 12.2 (5-19); Aspartate Amino Transferase 48 U/L (0-40); Blood Urea Nitrogen 15 mg/dL (6-20); Calcium 8.5 mg/dL (8.5-10.5); Carbon Dioxide 26 mmol/L (22-29); Chloride 103 mmol/L (98-107); Creatinine Clr Calc Pharmacy 132.1706; Globulin 3.3 g/dL (1.3-4.6); Glomerular Filtration Rate 102.3 mL/min (90-130); Glucose 88 mg/dL (65-115); Osmolality Calculated 286 mOsm/kg (285-295); Potassium 3.2 mmol/L (3.5-5.1); Sodium 138 mmol/L (136-145); Total Bilirubin 0.5 mg/dL (0.15-1.2); Total Protein 6.4 g/dL (6.6-8.7)
[2024-09-26] MEDS: piperacillin-tazobactam 3.375 GM in sodium chloride 0.9% (plus) 50 ML IV ×3 (06:33→22:39)
[2024-09-26 08:00] VITALS: BP 95/65; PULSE 68; RESP 16; TEMP 36.6; O2SAT 94
[2024-09-26] MEDS: aspirin 81 mg EC Tablet PO (08:15)
[2024-09-26] MEDS: oseltamivir phosphate 75 mg Capsule PO ×2 (08:15→17:34)
[2024-09-26] MEDS: cetirizine 10 mg Tablet PO (08:15)
--- NOTE | 2024-09-26 09:22 | PC.CHAP ---
Pastoral Care Encounter/Spiritual Assessment Type of Contact [] Declined manager switch visit [] Patient/Family/Request visit [] Outpatient visit [] Follow-up visit [] Physician referral [] Code/Alert [x] Routine visit [] Staff referral [] Actively dying [] Patient sleeping [] Family support [] [] Out of room [] Palliative care [] [] Receiving care in room [] Pre-surgical visit [] Trauma [] Long length of stay [] ICU visit [] Other: Relational/Emotional Strength [] Patient feels connected with others/family/visitors/staff [] Distress [] Loneliness/isolation [] Abandonment Spirituality of Patient [] Person of Ayesha [] Attends Sabianism of their Ayesha [] Believes in Prayer [] Reads Bible or Druze materials [] There are 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 [x] Prayer [] Active listening [] Non-anxious presence [] Spiritual/emotional support [] Crisis/trauma care [] Spiritual counseling [] Bereavement support [] Provided bereavement packet [] Provided Bible/devotional materials [] Provided toy/stuffed animal, coloring book to patient or family member [] Provided Communion [] Anointing/[place] [] Salvation [] Completed spiritual assessment [] Other: Impact on Illness or Injury [] Angry [] Fearful [] Anxious [] Often cries [] Exhaustion [] Unable to work [] Unable to attend alevism [] Unable to walk/stand [] Unable to read [] Unable to drive [] Unable to eat/drink [] Unable to sleep [] Unable to be with family [] Patient intubated [] Other: Summary precaution Time spent with patient
[2024-09-26 12:00] VITALS: BP 120/83; PULSE 78; RESP 16; TEMP 36.4; O2SAT 93
[2024-09-26 13:03] LABS: Estmated Average Glucose 128; Hemoglobin A1C 6.1 % (4.0-6.0)
[2024-09-26 13:30] LABS: Chol HDL Ratio 4.65 mg/dL (1.0-5.00); Cholesterol 93 mg/dL (0-200); HDL Cholesterol 20 mg/dL (60-100); Iron 66 ug/dL (59-158); LDL Cholesterol Calculated 52 mg/dL (50-129); Percent Saturation 33.5 % (20-50); Thyroid Stimulating Hormone 1.57 uIU/mL (0.27-4.20); Total Iron Binding Capacity 197 mcg/dl; Triglycerides 103 mg/dL (0-150); Unsaturated Iron Binding 131 ug/dL (112-347); VLDL Cholestrol Calculation 21 mg/dL (0-30); Vitamin B12 337 pg/mL (232-1245)
[2024-09-26] MEDS: sodium chloride 0.9% 1,000 ML 75 ML IV (14:40)
--- NOTE | 2024-09-26 15:01 | P.PN_ITS ---
Subjective 2 Subjective: Hospital course, labs appreciated. On examination patient laying comfortably in bed. Denies any nausea, vomiting, headache, dizziness. Complaining of weakness. Hemodynamically stable and afebrile. Vitals/I&O/Wt Last Vital Signs Temp 97.5 F L 09/26/24 12:00 Pulse 78 09/26/24 12:00 Resp 16 09/26/24 12:00 BP 120/83 09/26/24 12:00 Pulse Ox 93 09/26/24 12:00 O2 Del Method Room Air 09/26/24 12:00 09/26/24 09/26/24 09/26/24 06:59 14:59 22:59 Intake Total 830 / 1920 410 / 410 Output Total 200 / 200 Balance 630 / 1720 410 / 410 Weight last 48 hrs Weight 95.073 kg Weight 95.073 kg Physical Exam 2 Const: COMMON NORMALS: patient oriented x3 and alert GENERAL APPEARANCE: c ooperative and lethargic ORIENTATION/CONSCIOUSNESS: Yes lethargic HENMT: COMMON NORMALS: oropharynx normal Neck/C-Spine: COMMON NORMALS: no JVD Resp: COMMON NORMALS: normal respiratory effort and clear to auscultation bilaterally AUSCULTATION: clear to auscultation bilaterally Cardio: COMMON NORMALS: no JVD, regular rhythm, S1 normal heart sound present, S2 normal heart sound present and No murmurs present (Cardio) RATE: t achycardic RHYTHM: regular rhythm HEART SOUNDS: S1 normal heart sound present and S2 normal heart sound present GI: COMMON NORMALS: Normal to inspection, nondistended, normoactive bowel sounds present, Soft to palpation and non-tender PALPATION: Yes Soft to palpation Extremity: COMMON NORMALS: no joint enlargement and no pedal edema OTHER: No erythema, swelling, warmth of left antecubital fossa. Neuro: COMMON NORMALS: patient oriented x3 and moves all extremities S ENSORIUM/ORIENTATION: Yes alert and Yes lethargic Skin: COMMON NORMALS: no rashes or lesions noted GENERAL SKIN EXAM: no rashes or lesions noted Data 09/26/24 03:17 09/26/24 03:17 Micro: Microbiology 09/24/24 10:03 Blood Culture - Preliminary Blood NEGATIVE TO DATE 09/24/24 10:00 Blood Culture - Preliminary Blood NEGATIVE TO DATE A&P Assessment and plan (1) Altered mental status: Resolved. Most likely in setting of influenza A infection. CT head negative for acute abnormality on admission. Could be in setting of amphetamine abuse. Blood culture so far negative. (2) Fever: Setting of influenza. Cannot rule out bacteremia. Patient is an IV drug user. No leukocytosis. Blood cultures so far negative. Check MRSA swab. For now continue with linezolid and Zosyn. If blood cultures remain negative for overall 72 hours will discontinue antibiotics. If MRSA swab is negative will discontinue linezolid. (3) Methamphetamine abuse: As above. Monitor for withdrawal. (4) Rhabdomyolysis: Most likely in setting of influenza A. Start on NS at 75 cc/h. Watch for fluid overload. Repeat CPK in AM. On home dose of statin. (5) Influenza A: Supportive treatment. Incentive spirometry. Continue with Tamiflu 75 mg twice daily for overall 5-day course. (6) Cardiomyopathy: Deemed nonischemic in the past. Myocardial stress test negative in the past. Chronic history. Last known EF of 35 to 40%. Currently euvolemic to slightly dehydrated. IV fluids as above. Watch for fluid overload. Patient would benefit from guideline directed medical therapy for heart failure. Should follow-up with cardiology as an outpatient. (7) Hepatitis C: Follow-up PCR levels. LFTs within normal limits. HIV negative. (8) Intravenous drug abuse: Plan Full code Cardiac diet Famotidine for PUD prophylaxis Lovenox famotidine for DVT prophylaxis. Attestations 2 Medical Necessity Statement*: Requires further hospitalization for management of rhabdomyolysis, fever in setting of influenza A in a patient with chronic IV drug abuse with amphetamines, hepatitis C while bacteremia is ruled out Diagnoses Altered mental status R41.82 Fever R50.9 Methamphetamine abuse F15.10 Rhabdomyolysis M62.82 Influenza A J10.1 Cardiomyopathy I42.9 Hepatitis C B19.20 Intravenous drug abuse F19.10
[2024-09-26 16:00] VITALS: BP 115/76; PULSE 70; RESP 16; TEMP 36.5; O2SAT 95
[2024-09-26] MEDS: famotidine 20 mg Tablet PO (17:34)
[2024-09-26 19:53] LABS: MRSA PCR OZH (swab) NOT DETECTED (Negative)
[2024-09-26 20:00] VITALS: BP 110/73; PULSE 75; RESP 18; TEMP 36.8; O2SAT 95
[2024-09-26] MEDS: acetaminophen 325 mg Tablet 650 MG PO (20:20)
[2024-09-26] MEDS: ibuprofen 200 mg Tablet 400 MG PO (22:40)
[2024-09-27] VITALS: BP 118/76; PULSE 98; RESP 22; TEMP 36.4; O2SAT 94
[2024-09-27] MEDS: sodium chloride 0.9% 1,000 ML 75 ML IV (00:14)
[2024-09-27 04:00] VITALS: BP 112/77; PULSE 67; RESP 18; TEMP 36.9; O2SAT 94
[2024-09-27 05:36] LABS: Basophils % 0.3 %; Eosinophils # 0.1 10^3/uL (0.0-0.8); Eosinophils % 2.3 %; Hematocrit 39.6 % (37-53); Lymphocytes # 2.2 10^3/uL (0.8-4.8); Lymphocytes % 56.3 %; Mean Corpuscular HGB Conc 34.3 g/dL (30-55); Mean Corpuscular Hemoglobin 30.6 pg (27-33); Mean Corpuscular Volume 89.2 fl (82-101); Mean Platelet Volume 10.7 fL (7.4-10.4); Monocytes # 0.5 10^3/uL (0.2-0.9); Monocytes % 13.4 %; Neutrophils # 1.06 10^3/uL (1.8-7.7); Neutrophils % 27.2 %; Nucleated Red Blood Cells % 0 %; Platelet Count 151 10^3/cmm (157-399); Red Blood Count 4.44 10^6/uL (3.85-5.65); Red Cell Distribution Width 12.8 % (12.1-15.1); White Blood Count 3.89 10^3/uL (3.29-11.43)
[2024-09-27 05:53] LABS: Slide Review Slide Review Perform
[2024-09-27 06:09] LABS: Alanine Aminotransferase 35 U/L (0-41); Albumin Level 3.3 g/dL (3.5-5.2); Alkaline Phosphatase 40 U/L (40-130); Anion Gap 13.8 (5-19); Aspartate Amino Transferase 37 U/L (0-40); Blood Urea Nitrogen 11 mg/dL (6-20); Calcium 8.2 mg/dL (8.5-10.5); Carbon Dioxide 26 mmol/L (22-29); Chloride 107 mmol/L (98-107); Globulin 2.9 g/dL (1.3-4.6); Glomerular Filtration Rate 89.3 mL/min (90-130); Glucose 90 mg/dL (65-115); Osmolality Calculated 295 mOsm/kg (285-295); Potassium 3.8 mmol/L (3.5-5.1); Sodium 143 mmol/L (136-145); Total Bilirubin 0.6 mg/dL (0.15-1.2); Total Protein 6.2 g/dL (6.6-8.7)
[2024-09-27 06:12] LABS: Creatine Phosphokinase 317 U/L (39-308); Magnesium 2.1 mg/dL (1.7-2.3)
[2024-09-27 06:21] LABS: Folate Level 9.6 ng/mL (4.5-32.2)
[2024-09-27] MEDS: piperacillin-tazobactam 3.375 GM in sodium chloride 0.9% (plus) 50 ML IV (07:07)
[2024-09-27 08:00] VITALS: BP 125/82; PULSE 63; RESP 16; TEMP 36.4; O2SAT 97
[2024-09-27] MEDS: oseltamivir phosphate 75 mg Capsule PO (09:11)
[2024-09-27] MEDS: aspirin 81 mg EC Tablet PO (09:11)
[2024-09-27] MEDS: cetirizine 10 mg Tablet PO (09:11)
[2024-09-27] MEDS: famotidine 20 mg Tablet PO (09:11)
[2024-09-27 12:00] VITALS: BP 128/88; PULSE 73; RESP 16; TEMP 36.4; O2SAT 94
--- NOTE | 2024-09-27 12:26 | P.DS_ITS ---
Discharge Providers Date of Admission: 09/25/24 22:00 Date of Discharge: September 27, 2024 Attending Provider at Admission: Carlos Gates Attending Provider at Discharge: Farhan Green MD Primary Care Provider: Blanco Amaro MD Diagnoses at Discharge Discharge Diagnosis (1) Altered mental status: Status: Resolved (2) Fever: Status: Acute (3) Methamphetamine abuse: Status: Acute (4) Rhabdomyolysis: Status: Acute (5) Influenza A: Status: Acute (6) Cardiomyopathy: Status: Acute (7) Hepatitis C: Status: Acute (8) Intravenous drug abuse: Status: Acute Reason for Visit Reason for Visit: sob Brief History: History as per HPI: 48-year-old gentleman with history of he patitis C, cardiomyopathy, EF 35-40%, intravenous substance use, CVA, came in feeling unwell to the ER, states has been feeling unwell with malaise, some cough, anxiety and restlessness, for about 2 days, reported injecting recreational substance which he thought was methamphetamine, but feels it was something else may be because of feeling so unwell. In ER he is found with tachypnea, sinus tachycardia, restless, received Ativan. During my evaluation he is lethargic. Tells me has not been feeling well for the last 2 days. Shows the injection site to be in the left antecubital fossa. Has not noticed any issue there. Hospital Course Hospital Course Patient was admitted to the hospital for evaluation management of altered mental status in setting of amphetamine use along with influenza A. He was started on supportive treatment with hydration and Tamiflu. Blood cultures during hospitalization remain negative hence his empiric IV antibiotics were discontinued. His hospitalization was otherwise unremarkable and he remained hemodynamically stable and on room air. He did have rhabdomyolysis on admission which resolved with IV fluids. He has been discharged in medically stable condition on oral Tamiflu for 3 more days, prednisone 40 mg daily for 5 more days. He is advised in detail try to avoid amphetamines going forward. Physical Exam Const: COMMON NORMALS: patient oriented x3 and alert GENERAL APPEARANCE: cooperative and lethargic ORIENTATION/CONSCIOUSNESS: Yes lethargic HENMT: COMMON NORMALS: oropharynx normal Neck/C-Spine: COMMON NORMALS: no JVD Resp: COMMON NORMALS: normal respiratory effort and clear to auscultation bilaterally AUSCULTATION: clear to auscultation bilaterally Cardio: COMMON NORMALS: no JVD, regular rhythm, S1 normal heart sound present, S2 normal heart sound present and No murmurs present (Cardio) RATE: tachycardic RHYTHM: regular rhythm HEART SOUNDS: S1 normal heart sound present and S2 normal heart sound present GI: COMMON NORMALS: Normal to inspection, nondistended, normoactive bowel sounds present, Soft to palpation and non-tender PALPATION: Yes Soft to palpation Extremity: COMMON NORMALS: no joint enlargement and no pedal edema OTHER: No erythema, swelling, warmth of left antecubital fossa. Neuro: COMMON NORMALS: patient oriented x3 and moves all extremities SENSORIUM/ORIENTATION: Yes alert and Yes lethargic Skin: COMMON NORMALS: no rashes or lesions noted GENERAL SKIN EXAM: no rashes or lesions noted Discharge Data Studies Completed and Pending Completed Studies During Hospitalization Category Date Time Status CT head w con [id number] Routine Cat Scan 09/24/24 14:19 Completed XR chest 1V portable [id number] Stat Exams 09/24/24 09:51 Completed Pending at discharge Category Date Time Status Blood Culture Stat Lab 09/24/24 10:03 Results Hepatitis C RNA Viral Load Qnt Routine Lab 09/24/24 16:42 Received MAG [Magnesium] AM LABS Lab 09/28/24 04:00 Ordered MAG [Magnesium] AM LABS Lab 09/29/24 04:00 Ordered Radiology Impressions Chest X-Ray 09/24/24 09:51 IMPRESSION: No acute cardiopulmonary process. Head CT 09/24/24 14:19 IMPRESSION: 1. Findings suggestive of ethmoid and sphenoid sinusitis. 2. No large territorial infarct or intracranial bleed. No abnormal enhancement or intracranial abscess formation. Laboratory Results WBC 3.89 10^3/uL (3.29-11.43) 09/27/24 05:07 RBC 4.44 10^6/uL (3.85-5.65) 09/27/24 05:07 Hgb 13.60 g/dL (11.27-16.99) 09/27/24 05:07 Hct 39.6 % (37-53) 09/27/24 05:07 MCV 89.2 fl (82-101) 09/27/24 05:07 MCH 30.6 pg (27-33) 09/27/24 05:07 MCHC 34.3 g/dL (30-55) 09/27/24 05:07 RDW 12.8 % (12.1-15.1) 09/27/24 05:07 Plt Count 151 10^3/cmm (157-399) L 09/27/24 05:07 MPV 10.7 fL (7.4-10.4) H 09/27/24 05:07 Neut % (Auto) 27.2 % 09/27/24 05:07 Lymph % (Auto) 56.3 % 09/27/24 05:07 [place] % (Auto) 13.4 % 09/27/24 05:07 Eos % (Auto) 2.3 % 09/27/24 05:07 Baso % (Auto) 0.3 % 09/27/24 05:07 Neut # (Auto) 1.06 10^3/uL (1.8-7.7) L 09/27/24 05:07 Lymph # (Auto) 2.2 10^3/uL (0.8-4.8) 09/27/24 05:07 [place] # (Auto) 0.5 10^3/uL (0.2-0.9) 09/27/24 05:07 Eos # (Auto) 0.1 10^3/uL (0.0-0.8) 09/27/24 05:07 Baso # (Auto) 0.0 10^3/uL (0.0-0.1) 09/27/24 05:07 Nucleated RBC % (auto) 0 % 09/27/24 05:07 Nucleated RBCs # 0.0 /100WBC 09/27/24 05:07 Sodium 143 mmol/L (136-145) 09/27/24 05:07 Potassium 3.8 mmol/L (3.5-5.1) 09/27/24 05:07 Chloride 107 mmol/L (98-107) 09/27/24 05:07 Carbon Dioxide 26 mmol/L (22-29) 09/27/24 05:07 Anion Gap 13.8 (5-19) 09/27/24 05:07 BUN 11 mg/dL (6-20) 09/27/24 05:07 Creatinine 0.9 mg/dL (0.7-1.2) 09/27/24 05:07 GFR Calculation 89.3 mL/min (90-130) L 09/27/24 05:07 Glucose 90 mg/dL (65-115) 09/27/24 05:07 Estimat Average Glucose 128 09/26/24 03:17 Hemoglobin A1c 6.1 % (4.0-6.0) H 09/26/24 03:17 Calculated Osmolality 295 mOsm/kg (285-295) 09/27/24 05:07 Calcium 8.2 mg/dL (8.5-10.5) L 09/27/24 05:07 Magnesium 2.1 mg/dL (1.7-2.3) 09/27/24 05:07 Iron 66 ug/dL (59-158) 09/26/24 03:17 TIBC 197 mcg/dl 09/26/24 03:17 % Saturation 33.5 % (20-50) 09/26/24 03:17 Unsat Iron Binding 131 ug/dL (112-347) 09/26/24 03:17 Total Bilirubin 0.6 mg/dL (0.15-1.2) 09/27/24 05:07 AST 37 U/L (0-40) 09/27/24 05:07 ALT 35 U/L (0-41) 09/27/24 05:07 Alkaline Phosphatase 40 U/L (40-130) 09/27/24 05:07 Creatine Kinase 317 U/L (39-308) H 09/27/24 05:07 CK-MM (CK-3) Cancelled 09/25/24 03:54 CK-MB (CK-2) Cancelled 09/25/24 03:54 CK-BB (CK-1) Cancelled 09/25/24 03:54 Creatine Kinase Interp Cancelled 09/25/24 03:54 Troponin T Baseline 11 ng/L (0-15) 09/24/24 10:00 Troponin T 120 Minute 8.31 ng/L (0-15) 09/24/24 12:14 Delta Troponin T -2.69 ABS# (0-10) L 09/24/24 12:14 Troponin T Hi Sens 6Hr 9.48 ng/L (0-15) 09/24/24 16:13 Troponin T Hi Sens 6Hr Delta -1.52 ng/L (0-12) L 09/24/24 16:13 Total Protein 6.2 g/dL (6.6-8.7) L 09/27/24 05:07 Albumin 3.3 g/dL (3.5-5.2) L 09/27/24 05:07 Globulin 2.9 g/dL (1.3-4.6) 09/27/24 05:07 Triglycerides 103 mg/dL (0-150) 09/26/24 03:17 Cholesterol 93 mg/dL (0-200) 09/26/24 03:17 LDL Cholesterol, Calc 52 mg/dL (50-129) 09/26/24 03:17 Total VLDL Cholesterol 21 mg/dL (0-30) 09/26/24 03:17 HDL Cholesterol 20 mg/dL (60-100) L 09/26/24 03:17 Cholesterol/HDL Ratio 4.65 mg/dL (1.0-5.00) 09/26/24 03:17 Vitamin B12 337 pg/mL (232-1245) 09/26/24 03:17 Folate 9.6 ng/mL (4.5-32.2) 09/27/24 05:07 TSH 1.57 uIU/mL (0.27-4.20) 09/26/24 03:17 Urine Color Yellow (Yellow) 09/24/24 10:20 Urine Appearance Clear (CLEAR) 09/24/24 10:20 Urine pH Not Reportable 09/24/24 10:20 Ur Specific [place] Not Reportable 09/24/24 10:20 Urine Protein Not Reportable 09/24/24 10:20 Urine Glucose (UA) Not Reportable 09/24/24 10:20 Urine Ketones Not Reportable 09/24/24 10:20 Urine Blood Not Reportable 09/24/24 10:20 Urine Nitrate Not Reportable 09/24/24 10:20 Urine Bilirubin Not Reportable 09/24/24 10:20 Urine Urobilinogen Not Reportable 09/24/24 10:20 Ur Leukocyte Esterase Not Reportable 09/24/24 10:20 Urine RBC Rare /hpf (0-2) 09/24/24 10:20 Urine WBC 0-4 /hpf (0-5) H 09/24/24 10:20 Ur Squamous Epith Cells 0-4 /hpf (0-5) H 09/24/24 10:20 Amorphous Sediment Trace /hpf 09/24/24 10:20 Urine Bacteria 1+ /hpf (NONE) H 09/24/24 10:20 Hyaline Casts 0-4 /lpf H 09/24/24 10:20 Fine Granular Casts 0-4 /lpf H 09/24/24 10:20 Urine Mucus 1+ /hpf 09/24/24 10:20 Ur Oval Fat Bodies 2+ /hpf 09/24/24 10:20 Nasal MRSA (PCR) Not detected (Negative) 09/26/24 17:28 Salicylates < 0.3 mg/dL (3-10) L 09/24/24 10:00 Urine Opiates Screen Negative ng/mL (Negative) 09/24/24 10:20 Acetaminophen < 5.0 ug/mL (10-30) L 09/24/24 10:00 Ur Barbiturates Screen Negative ng/mL (Negative) 09/24/24 10:20 Ur Phencyclidine Scrn Negative ng/mL (Negative) 09/24/24 10:20 Ur Amphetamines Screen Positive ng/mL (Negative) H 09/24/24 10:20 U Benzodiazepines Scrn Negative ng/mL (Negative) 09/24/24 10:20 Urine Cocaine Screen Negative ng/mL (Negative) 09/24/24 10:20 U Marijuana (THC) Screen Negative ng/mL (Negative) 09/24/24 10:20 Ethyl Alcohol < 10 mg/dL (0-10) 09/24/24 10:00 Coronavirus (PCR) Negative (Negative) 09/24/24 12:52 Hepatitis A IgM Ab Non-reactive (Nonreactive) 09/24/24 10:00 Hep Bs Antigen Non-reactive (Nonreactive) 09/24/24 10:00 Hep B Core IgM Ab Non-reactive (Nonreactive) 09/24/24 10:00 Hepatitis C Antibody Reactive (Nonreactive) H 09/24/24 10:00 HIV 1&2 Ab & HIV 1 Ag Non-reactive (Non-Reactiv) 09/24/24 10:00 HIV 1&2 Antibody Non-reactive (Non-Reactiv) 09/24/24 10:00 Influenza A (PCR) Positive (Negative) 09/24/24 12:52 Influenza Type B (PCR) Negative (Negative) 09/24/24 12:52 RSV (PCR) Negative (Negative) 09/24/24 12:52 Vitals Last Vital Signs Temp 97.5 F L 09/27/24 12:00 Pulse 73 09/27/24 12:00 Resp 16 09/27/24 12:00 BP 128/88 09/27/24 12:00 Pulse Ox 94 09/27/24 12:00 O2 Del Method Room Air 09/27/24 12:00 O2 Flow Rate 0 09/27/24 08:50 Discharge Plan Discharge Patient Disposition: Home Condition: Stable Prescriptions: New oseltamivir 75 mg Capsule 75 mg PO BID 3 Days Qty: 6 0RF prednisone 20 mg tablet 20 mg PO BID 5 Days Qty: 10 0RF Continued cetirizine [Zyrtec] 10 mg tablet 10 mg PO DAILY Qty: 90 1RF aspirin 81 mg tablet,delayed release (DR/EC) 81 mg PO DAILY 90 Days Qty: 90 1RF atorvastatin 40 mg tablet 40 mg PO BEDTIME 30 Days Qty: 90 1RF ibuprofen [Advil] 200 mg Tablet 800 mg PO Q6H PRN (Reason: Pain) Discharge Orders: Discharge Order (Routine); Ordered 09/27/24 Ordered By: Farhan Green Referrals: Blanco Amaro MD [Primary Care Provider] - (We have notified your physician's clinic of the need for a follow-up appointment to be scheduled. If you have not heard from them within the next 2 business days, please call them directly. ) Discharge Diet: Regular Discharge Activity: Resume usual activity and Increase activity as tolerated Patient Instructions: Prednisone (By mouth), Oseltamivir (By mouth), Influenza (GEN), Opioid Safety Discharge Attestations Time Spent in Discharge Care*: greater than 30 min Specific Discharge Activities: educating patient, discussing with pcp/other providers, discussing with protective services case worker/social workers/dc planners, documenting/other paperwork and evaluating patient/reviewing data Status at Discharge: Cognitive status at discharge: cognitively intact , Behavioral status at discharge: cooperative , Functional status at discharge: independent ambulation , Overall status at discharge: patient is back to baseline Quality Metrics Clinical Quality Measures [ No reported AMI, CVA or VTE this stay] Coding Level of Care Code Acute Code for g Fwd Diagnoses Altered mental status R41.82 Fever R50.9 Methamphetamine abuse F15.10 Rhabdomyolysis M62.82 Influenza A J10.1 Cardiomyopathy I42.9 Hepatitis C B19.20 Intravenous drug abuse F19.10
[2024-09-27 12:57] VITALS: BP 128/88; PULSE 73; RESP 16; TEMP 36.4; O2SAT 94
--- NOTE | 2024-09-27 12:58 | PC.NURSE ---
Discharge instructions provided to pt. NO questions or concerns voiced at this time. All belongings with pt. Awaiting his ride home.
[2024-09-28 16:35] LABS: HEP C RNA Viral Load Quant <1.18 NOT DETECTED Log IU/mL (NOT DETECTED); HEP C RNA Viral Load Quant <15 NOT DETECTED IU/mL (NOT DETECTED)
== END 2024-09-27 13:09 | disposition home or self-care (01) | DRG 194 ==
LOC: ER 10:03 → MEDSURG 11:57
PROVIDERS: Admitting Provider Internal Medicine; Emergency Provider Family Medicine; PCP Family Medicine; Visit Provider Student in an Organized Health Care Education/Training Program
DX: J10.1 Influenza due to other identified influenza virus with other respiratory manifestations (principal); I42.8 Other cardiomyopathies; M62.82 Rhabdomyolysis; I50.22 Chronic systolic (congestive) heart failure; F15.10 Other stimulant abuse, uncomplicated; B19.20 Unspecified viral hepatitis C without hepatic coma; Z86.73 Personal history of transient ischemic attack (TIA), and cerebral infarction without residual deficits; R00.0 Tachycardia, unspecified; R41.82 Altered mental status, unspecified; Z79.82 Long term (current) use of aspirin; J32.2 Chronic ethmoidal sinusitis; J32.3 Chronic sphenoidal sinusitis; F17.210 Nicotine dependence, cigarettes, uncomplicated; F17.220 Nicotine dependence, chewing tobacco, uncomplicated
CPT/HCPCS: 36415; 70460; 71045; 80053; 80061; 80074; 80306; 80307; 81001; 82550; 82607; 82746; 83036; 83540; 83550; 83735; 84443; 84484; 85025; 87040; 87522; 87637; 87806; 93005; 96372; 96374; 99285; G0378; J1650; J2020; J2060; J2543; J7030; J7040

== ENCOUNTER → 2024-11-02 14:44 | Outpatient (BNVA) | payer MEDICAID, SELFPAY | PROVIDERS: PCP Family Medicine; Visit Provider Student in an Organized Health Care Education/Training Program | DX: M79.645 Pain in left finger(s) (principal); M79.644 Pain in right finger(s); M65.331 Trigger finger, right middle finger; M65.332 Trigger finger, left middle finger | CPT/HCPCS: 73130 ==

== ENCOUNTER → 2024-11-08 11:24 | Outpatient (BNVA) | payer MEDICAID, SELFPAY | PROVIDERS: PCP Family Medicine; Visit Provider Podiatrist Foot & Ankle Surgery | DX: S99.922A Unspecified injury of left foot, initial encounter (principal); M79.672 Pain in left foot; M76.72 Peroneal tendinitis, left leg; X58.XXXA Exposure to other specified factors, initial encounter | CPT/HCPCS: 73630 ==

== ENCOUNTER 2024-12-16 08:48 | Day surgery (SDC) | payer MEDICAID, SELFPAY ==
[2024-12-16] VITALS (8 sets, daily range): BP systolic 116–166; BP diastolic 50–93; PULSE 53–75; RESP 15–18; TEMP 36.1–36.4; O2SAT 97–100; BMI 30.5
--- NOTE | 2024-12-16 09:27 | W.PM.OPSFHP ---
Same Day Surgery H&P Indication for Procedure/HPI DATE OF PROCEDURE: December 16, 2024 CHIEF COMPLAINT/INDICATIONFOR SURGICAL PROCEDURE: Bilateral middle finger triggers PREOP DIAGNOSIS: Bilateral middle finger triggers PLANNED PROCEDURE: Operation Date: 12/16/24 10:40 Proposed Procedures p Left Middle Trigger Finger Release. Right Middle Trigger Finger Release(Bilateral) - Arden Mcmullen, DO Medications/Allergies* Home Medications ?Medication ?Instructions ?Recorded ?Confirmed ?Type ibuprofen 200 mg tablet (Advil) 800 mg PO Q6H PRN Pain 09/24/24 12/16/24 History Allergies/Adverse Reactions Allergy/AdvReac Type Severity Reaction Status Date / Time fentanyl Allergy Mild ALGY-Rash Verified 12/16/24 09:14 morphine Allergy Unknown Verified 12/16/24 09:14 Pertinent History/Comorbid Conditions* Medical History (Updated 11/08/24 @ 11:45 by Zen Marino DPM) AC (acromioclavicular) joint arthritis Traumatic tear of right rotator cuff Anxiety Heart failure, left, 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% History of back injury 2006, spinal fusion Hepatitis C Methamphetamine abuse Intravenous drug abuse Cardiomyopathy Acute right arterial ischemic stroke, middle cerebral artery (MCA) Substance abuse Surgical History (Updated 01/02/23 @ 08:12 by Blanco Amaro MD) History of back surgery History of lymph node excision groin area History of hand surgery Family History (Updated 09/24/24 @ 14:20 by Carlos Gates MD) Psychiatric illness Altered mental status Lung disease Mother Cancer Grandmother breast Hypertension Grandmother Denies family history of Diabetes CAD (coronary artery disease) Clotting disorder Dementia Hyperlipidemia Chronic kidney disease (CKD) Suicide Anesthesia complication Bleeding disorder Stroke Social History Smoking and tobacco/nicotine status: current every day tobacco/nicotine user (chews tobacco) cigarettes Packs smoked per day: 0.25 and smokeless tobacco Smokeless tobacco user: chewing tobacco Alcohol intake: current Substance/Drug Use: current Lives independently: Yes Marital status: Single Current occupational status: unemployed Current gender identity: Male Pertinent Exam Findings alert, oriented x 3, operative site marked and procedure specific exam findings Please refer to detailed orthopedic examination on 11/02/2024 listed below: Patient today does have tenderness over the A1 pulleys of the right and left middle fingers as they were signed today. As well as mechanical triggering noted. Trigger Finger Exam: -Negative Tinel's at wrist -Negative median nerve compression test -Good thenar strength, no appreciable atrophy -Good intrinsic strength, no atrophy noted -Slight decreased ROM compared to the other digits -When making a fist decreased ROM of right middle finger & left middle finger -TTP over A1 lito of right middle finger with mechanical triggering and catching noted -TTP over A1 lito of left middle finger with mechanical triggering and catching noted -No TTP over remaining digit A1 lito's -Negative CMC grind test -No TTP over CMC joint Recommendations Surgery/Procedure today Other Plans: Plan to proceed to the OR today for left middle finger trigger release, and right middle finger trigger release. Patient understands the ins and outs procedure risk benefits complication alternatives surgery and through shared decision make elects proceed with surgical invention. All questions answered at this time. Coding Level of Care Code Acute Code for Que Fwjany
[2024-12-16] MEDS: ketorolac 30 mg/mL INJ IVP (09:33)
[2024-12-16] MEDS: sodium chloride 0.9% 1,000 ML 30 ML IV (09:33)
[2024-12-16] MEDS: scopolamine 1 mg PATCH 1 PATCH TRANSDERMA (09:34)
[2024-12-16] MEDS: acetaminophen 1,000 MG/100 ML PIGGYBACK 400 MG IV (09:34)
--- NOTE | 2024-12-16 09:38 | ANES.PREANE2 ---
Pre-Anesthetic Assessment Height/Weight: Height 1.83 m Weight 102.058 kg Temp Pulse Resp BP Pulse Ox O2 Del Method 97.3 F L 75 18 119/93 97 Room Air 12/16/24 09:15 12/16/24 09:15 12/16/24 09:15 12/16/24 09:15 12/16/24 09:15 12/16/24 09:15 Preop Diagnosis: Bilateral middle finger triggers Operation Date: 12/16/24 10:40 Proposed Procedures p Left Middle Trigger Finger Release. Right Middle Trigger Finger Release(Bilateral) - Arden [place], DO Familial anesthetic complications: Propofol quarles Was Beta Sara taken within 24 hours: N/A Was Clonidine taken within 24 hours: N/A Last intake: Intake Last Liquid Date 12/15/24 Last Liquid Time 23:30 Last Solid Date 12/15/24 Last Solid Time 22:30 Social Tobacco and No alcohol Exam alert, oriented x 3, clear to auscultation bilaterally and regular rate & rhythm Airway Mallampati: Class II CV/HEM EF 30% Hepatic Hpe C Neuropsych Cerebrovascular Accident and Seizure Anesthetic Plan ASA status: 4 Anesthesia: MAC Risk of > 500 ml blood loss (7ml/kg in children): No Medications/Allergies Home Medications ?Medication ?Instructions ?Recorded ?Confirmed ?Last Taken ?Type aspirin 81 mg tablet,delayed 81 mg PO DAILY 90 days #90 tabs 11/05/22 12/16/24 12/15/24 Rx release atorvastatin 40 mg tablet 40 mg PO BEDTIME 30 days #90 tabs 01/18/24 12/16/24 12/15/24 Rx ibuprofen 200 mg tablet (Advil) 800 mg PO Q6H PRN Pain 09/24/24 12/16/24 09/23/24 History cetirizine 10 mg tablet (Zyrtec) 10 mg PO DAILY #90 tabs 11/23/24 12/16/24 12/15/24 Rx Allergies Allergy/AdvReac Type Severity Reaction Status Date / Time fentanyl Allergy Mild ALGY-Rash Verified 12/16/24 09:14 morphine Allergy Unknown Verified 12/16/24 09:14 Current Medications Generic Name Dose Route Start Last Admin Trade Name Freq PRN Reason Stop Dose Admin Sodium Chloride 1,000 mls @ 30 mls/hr 12/16/24 09:15 12/16/24 09:33 Sodium Chloride 0.9% IV 12/17/24 09:14 30 mls/hr .Q24H GRECIA Administration PFSH Anesthesia Medical History AC (acromioclavicular) joint arthritis Traumatic tear of right rotator cuff Anxiety Heart failure, left, 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% History of back injury 2006, spinal fusion Hepatitis C Methamphetamine abuse Intravenous drug abuse Cardiomyopathy Acute right arterial ischemic stroke, middle cerebral artery (MCA) Substance abuse Surgical History History of back surgery History of lymph node excision groin area History of hand surgery Family History Grandmother Cancer breast Hypertension Mother Lung disease Other Altered mental status Psychiatric illness Denies family history of Diabetes CAD (coronary artery disease) Clotting disorder Dementia Hyperlipidemia Chronic kidney disease (CKD) Suicide Anesthesia complication Bleeding disorder Stroke Social History Smoking and tobacco/nicotine status: current every day tobacco/nicotine user (chews tobacco) cigarettes Packs smoked per day: 0.25 and smokeless tobacco Smokeless tobacco user: chewing tobacco Alcohol intake: current Substance/Drug Use: current Lives independently: Yes Marital status: Single Current occupational status: unemployed Current gender identity: Male Data Anesthesia Cardiac Studies: Echocardiogram 01/15/23 Sestamibi Stress Test (Cardiology) 12/25/22 Cardiac Event Monitor 09/24/22
[2024-12-16] MEDS: midazolam 1 mg/mL INJ 2 mL 2 MG IVP (09:39)
[2024-12-16] MEDS: ceFAZolin 2,000 MG in sodium chloride 0.9% (plus) 50 ML 100 MG IV (10:35)
[2024-12-16] MEDS: ROPivacaine 0.5% SDV 30 mL 50 MG INJECTION (10:37)
[2024-12-16] MEDS: lidocaine 1% 10 ML INJ XX (10:37)
--- NOTE | 2024-12-16 11:14 | P.BOP_ITS ---
Date of Procedure: 12/16/2024 Surgeon: Arden Mitchell DO Center Medical Specialist(s): None Procedure(s) performed: Left middle finger trigger release Right middle finger trigger release Findings of the procedure(s): Patient found to have bilateral middle finger trigger fingers underwent procedure as planned without issues or complications taken back to PACU stable condition Estimated blood loss: 3 mL Specimen(s) removed: None Post-operative diagnosis: Left middle finger trigger, right middle finger trigger
--- NOTE | 2024-12-16 11:15 | PM.OP ---
Operative Report Date of procedure: December 16, 2024 Surgeon: Arden Mitchell DO Procedure: Preoperative diagnosis: Left middle finger trigger Right middle finger trigger Post-op diagnosis: Same Procedure done: Left middle finger trigger release Right?middle?finger?trigger release Surgeon: Arden Mitchell DO Estimated blood loss: 3cc Tourniquet time Left?5 minutes Right?6 minutes Complications: None Condition: stable Disposition: same day Brief History: Patient's been seen and worked up in the outpatient setting and findings consistent with preoperative diagnosis of right?and left middle?finger?trigger.? He is failed conservative treatment.? Continues to have mechanical locking and catching.? Severe pain as well.? We talked about treatment options nonoperative versus operative intervention.? ?Patient understands the risk benefits complication alternatives of surgical nonsurgical treatment options.? Understanding his risks with surgery he elects proceed with surgical intervention.? Consent obtained in the preoperative holding area. Consent signed for left middle finger trigger release, right middle finger trigger release.? Here today to proceed with surgical intervention.? All questions answered. Procedure: Patient was seen and evaluated in the preoperative holding area.? Consent was reviewed and signed with patient. Correct extremities were marked/correct digits. Seen evaluated by Anesthesia Department.? Once cleared for surgery was brought back to the operative suite.? Placed in supine position on the OR table all bony prominences well-padded patient properly secured to the bed.? Patient's bilateral arm was then placed to the armboard.? A nonsterile tourniquet applied to the bilateral upper arm.? Patient's bilateral upper extremity was then prepped and draped in standard orthopedic fashion.? Final timeout performed.? Patient received appropriate preoperative antibiotics. Esmarch tourniquet was used exsanguinate the left upper extremity tourniquet insufflated to 250 mmHg. Under sterile aseptic technique local digital block was performed to the left?middle?finger.? Once appropriately anesthetized a standard oblique incision was made centering over the A1 lito following patient's flexor crease.? Sharp scalpel incision was made only through skin and then switched to Littler dissection scissors and spread longitudinally directly over the flexor tendon sheath.? I then mobilized both radially and ulnarly and Kasdan retractors were used and placed by my timber management assistant to protect neurovascular bundle.? Next I visualized the A1 lito and this was incised with a scalpel.? I then switched to dissection scissors and released the A1 lito both proximally as well as distally to its entirety.? Significant tendon sheath fluid was noted consistent with inflammation.? Mild fraying of the flexor tendons noted but no tear.? At this point I utilized a rag nail and pulled the tendons FDS and FDP out of the incision and no?triggering was noted., As well as is able to take the finger through range of motion and no palpable triggering was appreciated. This point thorough irrigation was performed.? Tourniquet deflated hemostasis satisfactory with bipolar.? I then subsequently closed the incision with interrupted nylon suture.? Xeroform 4 x 4's, Kerlix and an Jose D wrap was applied for a bulky soft dressing.? Next I proceeded with the right middle finger trigger release. Esmarch tourniquet was used exsanguinate the Right upper extremity tourniquet insufflated to 250 mmHg. Under sterile aseptic technique local digital block was performed to the right?middle?finger.? Once appropriately anesthetized a standard oblique incision was made centering over the A1 lito following patient's flexor crease.? Sharp scalpel incision was made only through skin and then switched to Littler dissection scissors and spread longitudinally directly over the flexor tendon sheath.? I then mobilized both radially and ulnarly and Kasdan retractors were used and placed by my timber management assistant to protect neurovascular bundle.? Next I visualized the A1 lito and this was incised with a scalpel.? I then switched to dissection scissors and released the A1 lito both proximally as well as distally to its entirety.? Significant tendon sheath fluid was noted consistent with inflammation.? Mild fraying of the flexor tendons noted but no tear.? At this point I utilized a rag nail and pulled the tendons FDS and FDP out of the incision and no?triggering was noted.? As well as I was able to take the finger through range of motion and no palpable triggering was appreciated. This point thorough irrigation was performed.? Tourniquet deflated hemostasis satisfactory with bipolar.? I then subsequently closed the incision with interrupted nylon suture.? Xeroform 4 x 4's, Kerlix and an Jose D wrap was applied for a bulky soft dressing.? Patient was then subsequently awakened from anesthesia and taken to PACU in stable condition tolerated procedure without issues. Disposition: Patient taken back in stable condition recovering well.? Patient will receive appropriate discharge instruction as well as pain medication postoperatively.? Patient to follow-up with me in the office in 2 weeks. Patient understands that any questions or concerns and contact the office.? All questions answered.
--- NOTE | 2024-12-16 12:15 | ANE.PACU2 ---
Inpatient post-anesthesia follow up: Airway intact: Yes Vital signs: Temperature 97.6 F Pulse Rate 53 Respiratory Rate 18 Blood Pressure 166/83 Pulse Oximetry 100 Oxygen Delivery Me thod Room Air Oxygen Flow Rate 6 Fraction of Inspir ed Oxygen Hydration adequate: Yes Nausea and vomiting: No Pain level: 1 Mental status: Baseline
== END 2024-12-16 12:19 | disposition home or self-care (01) ==
PROVIDERS: PCP Family Medicine; Visit Provider Student in an Organized Health Care Education/Training Program
PROC: (CPT 26055; principal; 2024-12-16 10:30)
DX: M65.331 Trigger finger, right middle finger (principal); M65.332 Trigger finger, left middle finger; Z79.82 Long term (current) use of aspirin; I50.20 Unspecified systolic (congestive) heart failure; I42.9 Cardiomyopathy, unspecified; F17.210 Nicotine dependence, cigarettes, uncomplicated; F17.220 Nicotine dependence, chewing tobacco, uncomplicated; Z86.19 Personal history of other infectious and parasitic diseases; Z86.73 Personal history of transient ischemic attack (TIA), and cerebral infarction without residual deficits
CPT/HCPCS: 26055 ×2; J0131; J0690; J1171; J1885; J2250; J2704; J2795; J3010; J7030; J9999

== ENCOUNTER 2025-03-16 07:40 | Emergency (ER) | payer MEDICAID, SELFPAY ==
[2025-03-16 07:47] VITALS: BP 123/87; PULSE 84; RESP 18; TEMP 36.8; O2SAT 96
--- NOTE | 2025-03-16 07:49 | XR_ITS ---
WS: [id number] Exam: XR tibia fibula RT 2V [id number] Date/Time of Exam: 03/16/2025 7:54 AM Reason For Exam: leg injury No fracture. Articular relationships are intact. Normal soft tissues. XR/XR tibia fibula RT 2V [id number] IMPRESSION: 1. Negative RIGHT lower leg.
--- OUTSIDE RECORDS SUMMARY | 2025-03-16 07:51 | XMS_ITS | Clinical Summary ---
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
--- OUTSIDE RECORDS SUMMARY | 2025-03-16 07:51 | XMS_ITS | Encounter Summary ---
Author Organization [employer] Address [address] [place] [address] Care Team Providers Care Student Counsellor Name Role Phone Conversion, History Primary Care Provider Shantel salazar Encounter Details Date Type Department Care Team (Latest Contact Info) Description 12/18/2006 Inpatient Historical [facility] Aric Nathan MD [address] [place] [address] Displacement of Lumbar Intervertebral Disc without Myelopathy (Primary Dx) Social History Tobacco Use Types Packs/Day Years Used Date Smoking Tobacco: Never Assessed Sex and Gender Information Value Date Recorded Sex Assigned at Not on file 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 Gender Identity Not on file Sexual Orientation Not on file documented as of this encounter Plan of Treatment Not on file documented as of this encounter Procedures Procedure Name Priority Date/Time Associated Diagnosis Comments HEMOGLOBIN AND HEMATOCRIT Routine 12/19/2006 5:45 AM CDT HEMOGLOBIN AND HEMATOCRIT Routine 12/18/2006 7:25 PM CDT HEMOGLOBIN AND HEMATOCRIT Routine 12/15/2006 12:50 PM CDT documented in this encounter Results * (ABNORMAL) HEMOGLOBIN AND HEMATOCRIT (12/19/2006 5:45 AM CDT) HEMOGLOBIN 13.0(L) 13.6 - 16.5 g/dL INTERFACE SYSTEM HEMATOCRIT 37.8(L) 40.0 - 48.0 % INTERFACE SYSTEM 12/19/2006 5:45 AM CDT Aric Nathan MD HEMATOLOGY ORDERABLES Edited Performing Organization Address City/[facility] Co de Phone Number INTERFACE SYSTEM Refer to clinic/hospital department * HEMOGLOBIN AND HEMATOCRIT (12/18/2006 7:25 PM CDT) HEMOGLOBIN 14.0 13.6 - 16.5 g/dL INTERFACE SYSTEM HEMATOCRIT 40.4 40.0 - 48.0 % INTERFACE SYSTEM 12/18/2006 7:25 PM CDT us Aric Nathan MD HEMATOLOGY ORDERABLES Edited Performing Organization Address City/[facility] Co de Phone Number INTERFACE SYSTEM Refer to clinic/hospital department * HEMOGLOBIN AND HEMATOCRIT (12/15/2006 12:50 PM CDT) HEMOGLOBIN 15.2 13.6 - 16.5 g/dL INTERFACE SYSTEM HEMATOCRIT 42.2 40.0 - 48.0 % INTERFACE SYSTEM 12/15/2006 12:5 0 PM CDT Aric Nathan MD HEMATOLOGY ORDERABLES Edited Performing Organization Address City/[facility] Co de Phone Number INTERFACE SYSTEM Refer to clinic/hospital department documented in this encounter Visit Diagnoses Diagnosis Displacement of lumbar intervertebral disc without myelopathy- Primary documented in this encounter Care Teams Student Counsellor Relationship Specialty Start Date End Date Conversion, History PCP - General 02/10/07 documented as of this encounter
--- OUTSIDE RECORDS SUMMARY | 2025-03-16 07:51 | XMS_ITS | Encounter Summary ---
Author Organization [employer] Address [address] [place] [address] Care Team Providers Care Reference Test Clerk Name Role Phone Conversion, History Primary Care Provider Shantel salazar Encounter Details Date Type Department Care Team (Latest Contact Info) Description 05/25/2007 Outpatient Historical [facility] Aric Nathan MD [address] [place] [address] Displacement of Lumbar Intervertebral Disc without Myelopathy (Primary Dx) Social History Tobacco Use Types Packs/Day Years Used Date Smoking Tobacco: Never Assessed Sex and Gender Information Value Date Recorded Sex Assigned at Not on file 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
--- OUTSIDE RECORDS SUMMARY | 2025-03-16 07:51 | XMS_ITS | Encounter Summary ---
Author Organization [employer] Address [address] [place] [address] Care Team Providers Care Electronics Parts Sales Representative Name Role Phone Conversion, History Primary Care Provider Shantel salazar Encounter Details Date Type Department Care Team (Latest Contact Info) Description 01/04/2007 Outpatient Historical [facility] Aric Nathan MD [address] [place] [address] Follow-Up Examination, Following Other Surgery (Primary Dx) Social History Tobacco Use Types Packs/Day Years Used Date Smoking Tobacco: Never Assessed Sex and Gender Information Value Date Recorded Sex Assigned at Not on file 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
--- OUTSIDE RECORDS SUMMARY | 2025-03-16 07:51 | XMS_ITS | Encounter Summary ---
Author Organization [employer] Address [address] [place] [address] Care Team Providers Care Window Shade Installer Name Role Phone Conversion, History Primary Care Provider Shantel salazar Encounter Details Date Type Department Care Team (Latest Contact Info) Description 02/10/2007 Outpatient Historical [facility] Aric Nathan MD [address] [place] [address] Displacement of Lumbar Intervertebral Disc without Myelopathy (Primary Dx) Social History Tobacco Use Types Packs/Day Years Used Date Smoking Tobacco: Never Assessed Sex and Gender Information Value Date Recorded Sex Assigned at Not on file 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
--- OUTSIDE RECORDS SUMMARY | 2025-03-16 07:51 | XMS_ITS | Encounter Summary ---
Author Organization [employer] Address [address] [place] [address] Care Team Providers Care Insurance Risk Surveyor Name Role Phone Conversion, History Primary Care Provider Shantel salazar Encounter Details Date Type Department Care Team (Latest Contact Info) Description 03/15/2007 Outpatient Historical [facility] Aric Nathan MD [address] [place] [address] Follow-Up Examination, Following Other Surgery (Primary Dx) Social History Tobacco Use Types Packs/Day Years Used Date Smoking Tobacco: Never Assessed Sex and Gender Information Value Date Recorded Sex Assigned at Not on file 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
--- OUTSIDE RECORDS SUMMARY | 2025-03-16 07:51 | XMS_ITS | Encounter Summary ---
Author Organization [employer] Address 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
--- NOTE | 2025-03-16 08:10 | ED_ITS ---
HPI - Extremity Problem General: Chief complaint: Extremity Problem,Nontraumatic Stated complaint: right leg pain Time Seen by Provider: 03/16/25 07:47 History of Present Illness: 49-year-old man who presents emergency r oom with right siegel pain. He says he was walking and stepped and felt something pop. Is been hurting since. He has been able to ambulate. There are some redness and warmth in the anterior lower extremity. No deformity. Neurovascular intact. Related Data Home Medications ?Medication ?Instructions ?Recorded ?Confirmed ibuprofen 200 mg tablet (Advil) 800 mg PO Q6H PRN Pain 09/24/24 12/19/24 Previous Rx's ?Medication ?Instructions ?Recorded aspirin 81 mg tablet,delayed 81 mg PO DAILY 90 days #9 0 tabs 11/05/22 release cetirizine 10 mg tablet (Zyrtec) 10 mg PO DAILY #90 ta bs 11/23/24 atorvastatin 40 mg tablet 40 mg PO BEDTIME 30 days #90 tabs 03/02/25 doxycycline hyclate 100 mg capsule 100 mg PO BID 7 day s #14 caps 03/16/25 Allergies Allergy/AdvReac Type Severity Reaction Status Date / Time fentanyl Allergy Mild ALGY-Rash Verified 12/19/24 13:07 morphine Allergy Unknown Verified 12/19/24 13:07 Review of Systems Narrative: Constitutional symptoms: Negative except as documented in HPI. Skin symptoms: Negative except as documented in HPI. Eye symptoms: Negative except as documented in HPI. ENMT symptoms: Negative except as documented in HPI. Respiratory symptoms: Negative except as documented in HPI. Cardiovascular symptoms: Negative except as documented in HPI. Gastrointestinal symptoms: Negative except as documented in HPI. Genitourinary symptoms: Negative except as documented in HPI. Musculoskeletal symptoms: Negative except as documented in HPI. Neurologic symptoms: Negative except as documented in HPI. Psychiatric symptoms: Negative except as documented in HPI. Endocrine symptoms: Negative except as documented in HPI. PFSH ED PFSH: Medical History AC (acromioclavicular) joint arthritis Traumatic tear of right rotator cuff Anxiety Heart failure, left, 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% History of back injury 2006, spinal fusion Hepatitis C Methamphetamine abuse Intravenous drug abuse Cardiomyopathy Acute right arterial ischemic stroke, middle cerebral artery (MCA) Substance abuse Surgical History History of back surgery History of lymph node excision groin area History of hand surgery Family History Grandmother Cancer breast Hypertension Mother Lung disease Other Altered mental status Psychiatric illness Denies family history of Diabetes CAD (coronary artery disease) Clotting disorder Dementia Hyperlipidemia Chronic kidney disease (CKD) Suicide Anesthesia complication Bleeding disorder Stroke Social History Smoking and tobacco/nicotine status: current every day tobacco/nicotine user cigarettes Packs smoked per day: 0.25 and smokeless tobacco Smokeless tobacco user: chewing tobacco Alcohol intake: current Substance/Drug Use: current Lives independently: Yes Marital status: Single Current occupational status: unemployed Current gender identity: Male Physical Exam Narrative: EXAM NARRATIVE: General: Alert, no acute distress. Skin: warm and dry, some redness and warmth mild edema on the anterior of the right lower extremity. No calf pain. No redness or swelling posteriorly. Head: Normocephalic Neck: Trachea midline Eye: Extraocular movements are intact. Ears, nose, mouth and throat: Oral mucosa moist Respiratory: Respirations are non-labored Musculoskeletal: Normal ROM Gastrointestinal: Abdomen does not appear distended Neurological: Alert and oriented, No focal neurological deficit observed. Psychiatric: Cooperative, appropriate mood & affect. Course Vital Signs: Vital signs: Vital Signs Temperature 98.2 F 03/16/25 07:47 Pulse Rate 84 03/16/25 07:47 Respiratory Rate 18 03/16/25 07:47 Blood Pressure 123/87 03/16/25 07:47 Pulse Oximetry 96 03/16/25 07:47 Oxygen Delivery Me thod Room Air 03/16/25 07:47 MDM - Extremity (Nontraumatic) Medical Decision Making X-ray of the right tibia/fibula: No fractures. This was reviewed and interpreted by myself the emergency room physician. I also reviewed the radiology report. Assessment and plan: Siegel injury Cellulitis - Discharged home - Discussed plan with patient. Answered any questions. - Evaluation and treatment of this problem were appropriate in the emergency setting. Lab Data Radiology Impressions Tibia/Fibula X-Ray 03/16/25 07:49 IMPRESSION: 1. Negative RIGHT lower leg. All radiology interpretation(s) finalized by discharge Discharge Plan Discharge Patient Disposition: Home Clinical Impression: Injury of right siegel, Cellulitis Condition: Stable Prescriptions: New doxycycline hyclate 100 mg capsule 100 mg PO BID 7 Days Qty: 14 0RF No Action aspirin 81 mg tablet,delayed release (DR/EC) 81 mg PO DAILY 90 Days Qty: 90 1RF cetirizine [Zyrtec] 10 mg tablet 10 mg PO DAILY Qty: 90 1RF atorvastatin 40 mg tablet 40 mg PO BEDTIME 30 Days Qty: 90 1RF ibuprofen [Advil] 200 mg Tablet 800 mg PO Q6H PRN (Reason: Pain) Discharge Orders: Discharge ED (Routine); Ordered 03/16/25 Ordered By: Connie Kuo Referrals: Blanco Amaro MD [Primary Care Provider, [facility]] Discharge Diet: Usual diet Discharge Activity: Increase activity as tolerated Patient Instructions: Opioid Safety, Pain Management, Patient Portal & Garry Instructions Activity Restrictions/Additional Instructions: Thank you for choosing [facility] for your healthcare needs today. You have been screened and evaluated and felt safe for discharge. Health conditions do change or evolve sometimes and as such it is important that you follow up with your Primary Doctor to be re checked, 3-5 days is a general good time frame for follow up. You are always welcome to return to the ED for re assessment if your symptoms are worsening or you have new concerns Print Language: [place] Coding Level of Care Code ED Resource Management Planner for Que To
[2025-03-16 08:30] VITALS: BP 123/87; PULSE 87; O2SAT 96
== END 2025-03-16 08:33 | disposition home or self-care (01) ==
PROVIDERS: Emergency Provider Emergency Medicine; PCP Family Medicine
DX: S89.91XA Unspecified injury of right lower leg, initial encounter (principal); L03.115 Cellulitis of right lower limb; F17.210 Nicotine dependence, cigarettes, uncomplicated; I50.9 Heart failure, unspecified; X58.XXXA Exposure to other specified factors, initial encounter
CPT/HCPCS: 73590; 99283

== ENCOUNTER 2025-04-26 08:49 | Emergency (ER) | payer MEDICAID, SELFPAY ==
--- NOTE | 2025-04-26 08:50 | ECG_ITS ---
[facility] 2025-[facility]26 Pat Name: Ava Whitaker Department: Room: Gender: Male Epitaxial Reactor Operator: : 1975 Requested By: Cristofer Cornelius Order Number: [id number] Fina MD: Cristiane Prince M.D. Measurements Intervals [place] Rate: 80 P: 25 OR: 158 QRS: -15 QRSD: 92 T: 109 QT: 347 QTc: 403 Interpretive Statements SINUS RHYTHM LEFT VENTRICULAR HYPERTROPHY AND ST-T CHANGE [VOLTAGE CRITERIA PLUS ST/T ABNORMALITY] Compared to ECG 09/24/2024 18:15:05 Left ventricular hypertrophy now present ST (T wave) deviation now present T-wave abnormality no longer present Electronically Signed On 04-26-2025 22:50:30 CDT by Cristiane Prince M.D. [email or web address]
[2025-04-26 08:51] VITALS: BP 126/91; PULSE 81; RESP 16; TEMP 36.6; O2SAT 95; BMI 29.0
--- OUTSIDE RECORDS SUMMARY | 2025-04-26 09:01 | XMS_ITS | Encounter Summary ---
Author Organization [employer] Address [address] [place] [address] Care Team Providers Care Athletic Scout Name Role Phone Conversion, History Primary Care Provider Shantel salazar Encounter Details Date Type Department Care Team (Latest Contact Info) Description 12/18/2006 Inpatient Historical [facility] Aric Nathan MD [address] [place] [address] Displacement of Lumbar Intervertebral Disc without Myelopathy (Primary Dx) Social History Tobacco Use Types Packs/Day Years Used Date Smoking Tobacco: Never Assessed Sex and Gender Information Value Date Recorded Sex Assigned at Not on file 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 Gender Identity Not on file Sexual Orientation [...] MD HEMATOLOGY ORDERABLES Edited Performing Organization Address City/[facility] Co de Phone Number INTERFACE SYSTEM Refer to clinic/hospital department * HEMOGLOBIN AND HEMATOCRIT (12/18/2006 7:25 PM CDT) HEMOGLOBIN 14.0 13.6 - 16.5 g/dL INTERFACE SYSTEM HEMATOCRIT 40.4 40.0 - 48.0 % INTERFACE SYSTEM 12/18/2006 7:25 PM CDT us Aric Nathan MD HEMATOLOGY ORDERABLES Edited Performing Organization Address City/[facility] Co de Phone Number INTERFACE SYSTEM Refer to clinic/hospital department * HEMOGLOBIN AND HEMATOCRIT (12/15/2006 12:50 PM CDT) HEMOGLOBIN 15.2 13.6 - 16.5 g/dL INTERFACE SYSTEM HEMATOCRIT 42.2 40.0 - 48.0 % INTERFACE SYSTEM 12/15/2006 12:5 0 PM CDT Aric Nathan MD HEMATOLOGY ORDERABLES Edited Performing Organization Address City/[facility] Co de Phone Number INTERFACE SYSTEM Refer to clinic/hospital department documented in this encounter Visit Diagnoses Diagnosis Displacement of lumbar intervertebral disc without myelopathy- Primary documented in this encounter Care Teams Athletic Scout Relationship Specialty Start Date End Date Conversion, History PCP - General 02/10/07 documented as of this encounter
--- OUTSIDE RECORDS SUMMARY | 2025-04-26 09:01 | XMS_ITS | Encounter Summary ---
Author Organization [employer] Address [address] [place] [address] Care Team Providers Care Weather Algorithm Scientist Name Role Phone Conversion, History Primary Care Provider Shantel salazar Encounter Details Date Type Department Care Team (Latest Contact Info) Description 02/10/2007 Outpatient Historical [facility] Aric Nathan MD [address] [place] [address] Displacement of Lumbar Intervertebral Disc without Myelopathy (Primary Dx) Social History Tobacco Use Types Packs/Day Years Used Date Smoking Tobacco: Never Assessed Sex and Gender Information Value Date Recorded Sex Assigned at Not on file 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
--- OUTSIDE RECORDS SUMMARY | 2025-04-26 09:01 | XMS_ITS | Encounter Summary ---
Author Organization [employer] Address 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
--- OUTSIDE RECORDS SUMMARY | 2025-04-26 09:01 | XMS_ITS | Clinical Summary ---
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
--- OUTSIDE RECORDS SUMMARY | 2025-04-26 09:01 | XMS_ITS | Encounter Summary ---
Author Organization [employer] Address [address] [place] [address] Care Team Providers Care System Archive Analyst Name Role Phone Conversion, History Primary Care Provider Shantel salazar Encounter Details Date Type Department Care Team (Latest Contact Info) Description 01/04/2007 Outpatient Historical [facility] Aric Nathan MD [address] [place] [address] Follow-Up Examination, Following Other Surgery (Primary Dx) Social History Tobacco Use Types Packs/Day Years Used Date Smoking Tobacco: Never Assessed Sex and Gender Information Value Date Recorded Sex Assigned at Not on file 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
--- OUTSIDE RECORDS SUMMARY | 2025-04-26 09:01 | XMS_ITS | Encounter Summary ---
Author Organization [employer] Address 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
--- OUTSIDE RECORDS SUMMARY | 2025-04-26 09:01 | XMS_ITS | Encounter Summary ---
Author Organization [employer] Address [address] [place] [address] Care Team Providers Care Golf Sales Associate Name Role Phone Conversion, History Primary Care Provider Shantel salazar Encounter Details Date Type Department Care Team (Latest Contact Info) Description 05/25/2007 Outpatient Historical [facility] Aric Nathan MD [address] [place] [address] Displacement of Lumbar Intervertebral Disc without Myelopathy (Primary Dx) Social History Tobacco Use Types Packs/Day Years Used Date Smoking Tobacco: Never Assessed Sex and Gender Information Value Date Recorded Sex Assigned at Not on file 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
--- NOTE | 2025-04-26 09:02 | XR_ITS ---
WS: [id number] XR chest 1V portable [id number] REASON FOR EXAM: chest pain FINDINGS: Chest is unchanged compared to 09/24/2024. Mild tortuosity of the thoracic aorta. Normal heart size. Calcified granulomatous disease in both hemithoraces. No acute pulmonary parenchymal or pleural abnormality. Mild degenerative spondylosis in the thoracic spine. XR/XR chest 1V portable [id number] IMPRESSION: Stable chest without acute abnormality.
[2025-04-26 09:14] LABS: Hematocrit 44.6 % (37-53); Hemoglobin 14.80 g/dL (11.27-16.99); Mean Corpuscular HGB Conc 33.2 g/dL (30-55); Mean Corpuscular Hemoglobin 29.7 pg (27-33); Mean Corpuscular Volume 89.6 fl (82-101); Nucleated Red Blood Cells % 0 %; Platelet Count 262 10^3/cmm (157-399); Red Blood Count 4.98 10^6/uL (3.85-5.65); White Blood Count 6.35 10^3/uL (3.29-11.43)
--- NOTE | 2025-04-26 09:14 | ED_ITS ---
HPI - Chest Pain 2 General: Chief Complaint: Chest Pain Stated Complaint: cp x1 week, drug use prior Time Seen by Provider: 04/26/25 09:01 History of Present Illness: 49-year-old male presents emergency room complaining of chest pain for the last week. Patient is a methamphetamine user uses IV drugs. Last used about 3 to 4 days ago denies getting the squeezing chest pain. Said some sensation of low- grade fevers as well. There is no history of coronary artery disease or arrhythmias he denies any productive cough. No shortness of breath. No hemoptysis no history of DVT or PE Associated symptoms: Deny abdominal pain, dyspnea or fever(s) Related Data Home Medications ?Medication ?Instructions ?Recorded ?Confirmed ibuprofen 200 mg tablet (Advil) 800 mg PO Q6H PRN Pain 09/24/24 04/26/25 Previous Rx's ?Medication ?Instructions ?Recorded aspirin 81 mg tablet,delayed 81 mg PO DAILY 90 days #9 0 tabs 11/05/22 release cetirizine 10 mg tablet (Zyrtec) 10 mg PO DAILY #90 ta bs 11/23/24 atorvastatin 40 mg tablet 40 mg PO BEDTIME 30 days #90 tabs 03/02/25 Allergies Allergy/AdvReac Type Severity Reaction Status Date / Time fentanyl Allergy Mild ALGY-Rash Verified 12/19/24 13:07 morphine Allergy Unknown Verified 12/19/24 13:07 Review of Systems 2 Const: Denies: fever(s) or chills Card: Denies: chest pain Resp: Denies: dyspnea GI: Denies: abdominal pain : Denies: dysuria, urinary frequency or urinary urgency Musc: Denies: neck pain or back pain Skin/Breast: Denies: rash PFSH ED 2 PFSH: Medical History AC (acromioclavicular) joint arthritis Traumatic tear of right rotator cuff Anxiety Heart failure, left, 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% History of back injury 2006, spinal fusion Hepatitis C Methamphetamine abuse Intravenous drug abuse Cardiomyopathy Acute right arterial ischemic stroke, middle cerebral artery (MCA) Substance abuse Surgical History History of back surgery History of lymph node excision groin area History of hand surgery Family History Grandmother Cancer breast Hypertension Mother Lung disease Other Altered mental status Psychiatric illness Denies family history of Diabetes CAD (coronary artery disease) Clotting disorder Dementia Hyperlipidemia Chronic kidney disease (CKD) Suicide Anesthesia complication Bleeding disorder Stroke Social History Smoking and tobacco/nicotine status: current every day tobacco/nicotine user cigarettes Packs smoked per day: 0.25 and smokeless tobacco Smokeless tobacco user: chewing tobacco Alcohol intake: current Substance/Drug Use: current Lives independently: Yes Marital status: Single Current occupational status: unemployed Current gender identity: Male Physical Exam 2 Const: COMMON NORMALS: no acute distress GENERAL APPEARANCE: cooperative and comfortable ORIENTATION/CONSCIOUSNESS: Yes awake, Yes oriented to person, Yes oriented to place and Yes oriented to time HENMT: COMMON NORMALS: normocephalic, atraumatic and hearing grossly normal bilaterally HEAD & SCALP: normocephalic and atraumatic Resp: COMMON NORMALS: normal respiratory effort, No retractions, No use of accessory muscles and clear to auscultation bilaterally AUSCULTATION: clear to auscultation bilaterally Cardio: COMMON NORMALS: regular rate, regular rhythm and No murmurs present (Cardio) RATE: regular rate RHYTHM: regular rhythm GI: COMMON NORMALS: Soft to palpation and No hepatosplenomegaly present A USCULTATION: Yes normoactive bowel sounds PALPATION: Yes Soft to palpation, No Tenderness to palpation present (GI), No Guarding due to palpation present (GI) and Yes No hepatosplenomegaly present Extremity: COMMON NORMALS: normal to inspection, capillary refill normal, no clubbing, cyanosis or edema, no calf tenderness and no pedal edema Neuro: SENSORIUM/ORIENTATION: Yes oriented to person, Yes oriented to place and Yes oriented to time Skin: COMMON NORMALS: no rashes or lesions noted GENERAL SKIN EXAM: no rashes or lesions noted Course 2 Vital Signs: Vital signs: Vital Signs Temperature 97.8 F 04/26/25 08:51 Pulse Rate 81 04/26/25 08:51 Respiratory Rate 16 04/26/25 08:51 Blood Pressure 126/91 04/26/25 08:51 Pulse Oximetry 95 04/26/25 08:51 Oxygen Delivery Me thod Room Air 04/26/25 08:51 MDM - Chest Pain Medical Decision Making Patient decided to leave AMA his initial troponin does not markedly elevated I was with another patient at the time. Staff tried to discourage patient from leaving most concerned about his history of admitted IV drug use about bacterial endocarditis about coronary artery disease. Patient refused and left AMA. He was advised by staff that he was welcome return at any point. Medical Records I reviewed the patient's medical records. Lab Data I reviewed the patient's lab results. 04/26/25 09:06 04/26/25 09:06 Radiology Impressions Chest X-Ray 04/26/25 09:02 IMPRESSION: Stable chest without acute abnormality. Laboratory Results WBC 6.35 10^3/uL (3.29-11.43) 04/26/25 09:06 RBC 4.98 10^6/uL (3.85-5.65) 04/26/25 09:06 Hgb 14.80 g/dL (11.27-16.99) 04/26/25 09:06 Hct 44.6 % (37-53) 04/26/25 09:06 MCV 89.6 fl (82-101) 04/26/25 09:06 MCH 29.7 pg (27-33) 04/26/25 09:06 MCHC 33.2 g/dL (30-55) 04/26/25 09:06 RDW 14.6 % (12.1-15.1) 04/26/25 09:06 Plt Count 262 10^3/cmm (157-399) 04/26/25 09:06 MPV 10.4 fL (7.4-10.4) 04/26/25 09:06 Neut % (Auto) 38.6 % 04/26/25 09:06 Lymph % (Auto) 45.8 % 04/26/25 09:06 Greer % (Auto) 11.5 % 04/26/25 09:06 Eos % (Auto) 3.3 % 04/26/25 09:06 Baso % (Auto) 0.5 % 04/26/25 09:06 Neut # (Auto) 2.45 10^3/uL (1.8-7.7) 04/26/25 09:06 Lymph # (Auto) 2.9 10^3/uL (0.8-4.8) 04/26/25 09:06 Greer # (Auto) 0.7 10^3/uL (0.2-0.9) 04/26/25 09:06 Eos # (Auto) 0.2 10^3/uL (0.0-0.8) 04/26/25 09:06 Baso # (Auto) 0.0 10^3/uL (0.0-0.1) 04/26/25 09:06 Nucleated RBC % (auto) 0 % 04/26/25 09:06 Nucleated RBCs # 0.0 /100WBC 04/26/25 09:06 Sodium 137 mmol/L (136-145) 04/26/25 09:06 Potassium 4.5 mmol/L (3.5-5.1) 04/26/25 09:06 Chloride 103 mmol/L (98-107) 04/26/25 09:06 Carbon Dioxide 24 mmol/L (22-29) 04/26/25 09:06 Anion Gap 14.5 (5-19) 04/26/25 09:06 BUN 13 mg/dL (6-20) 04/26/25 09:06 Creatinine 0.8 mg/dL (0.7-1.2) 04/26/25 09:06 GFR Calculation 101.9 mL/min (90-130) 04/26/25 09:06 Glucose 108 mg/dL (65-115) 04/26/25 09:06 Calculated Osmolality 285 mOsm/kg (285-295) 04/26/25 09:06 Lactic Acid 1.3 mmol/L (0.5-2.2) 04/26/25 09:06 Calcium 9.4 mg/dL (8.5-10.5) 04/26/25 09:06 Total Bilirubin 0.7 mg/dL (0.15-1.2) 04/26/25 09:06 AST 302 U/L (0-40) H 04/26/25 09:06 ALT 1025 U/L (0-41) H 04/26/25 09:06 Alkaline Phosphatase 168 U/L (40-130) H 04/26/25 09:06 Troponin T Baseline 8 ng/L (0-15) 04/26/25 09:06 Total Protein 7.1 g/dL (6.6-8.7) 04/26/25 09:06 Albumin 3.8 g/dL (3.5-5.2) 04/26/25 09:06 Globulin 3.3 g/dL (1.3-4.6) 04/26/25 09:06 All radiology interpretation(s) finalized by discharge EKG Data EKG 1: Interpretation: EKG 04/26/2025 sinus rhythm with a left ventricular [place] rate of 80 CT interval [address] elevation there are T wave inversions in V4 5 and 6 these were present in V4 and 5 in September 2024 V6 appears to be new from previous EKG. Discharge Plan Discharge Patient Disposition: Left Against Medical Advice Clinical Impression: Chest pain, Cardiomyopathy, Intravenous drug abuse, Methamphetamine abuse Condition: Stable Prescriptions: No Action aspirin 81 mg tablet,delayed release (DR/EC) 81 mg PO DAILY 90 Days Qty: 90 1RF cetirizine [Zyrtec] 10 mg tablet 10 mg PO DAILY Qty: 90 1RF atorvastatin 40 mg tablet 40 mg PO BEDTIME 30 Days Qty: 90 1RF ibuprofen [Advil] 200 mg Tablet 800 mg PO Q6H PRN (Reason: Pain) Referrals: Blanco Amaro MD [Primary Care Provider, Family Practice] Print Language: Tamazight Coding Level of Care Code ED Configuration Management Specialist for Que [employer]
[2025-04-26 09:32] LABS: Lactic Sepsis W/Reflex 1.3 mmol/L (0.5-2.2)
[2025-04-26 09:33] LABS: Troponin(5th) Baseline 8 ng/L (0-15)
[2025-04-26 09:37] LABS: Albumin Level 3.8 g/dL (3.5-5.2); Alkaline Phosphatase 168 U/L (40-130); Anion Gap 14.5 (5-19); Aspartate Amino Transferase 302 U/L (0-40); Blood Urea Nitrogen 13 mg/dL (6-20); Calcium 9.4 mg/dL (8.5-10.5); Carbon Dioxide 24 mmol/L (22-29); Chloride 103 mmol/L (98-107); Creatinine Clr Calc Pharmacy 135.7497; Globulin 3.3 g/dL (1.3-4.6); Glucose 108 mg/dL (65-115); Osmolality Calculated 285 mOsm/kg (285-295); Potassium 4.5 mmol/L (3.5-5.1); Sodium 137 mmol/L (136-145); Total Protein 7.1 g/dL (6.6-8.7)
[2025-04-26 09:48] LABS: Alanine Aminotransferase 1025 U/L (0-41)
== END 2025-04-26 10:54 | disposition left against medical advice (07) ==
PROVIDERS: Emergency Provider Family Medicine; PCP Family Medicine
DX: R07.9 Chest pain, unspecified (principal); I42.9 Cardiomyopathy, unspecified; F19.10 Other psychoactive substance abuse, uncomplicated; F15.10 Other stimulant abuse, uncomplicated; Z79.82 Long term (current) use of aspirin; I50.9 Heart failure, unspecified
CPT/HCPCS: 36415; 71045; 80053; 83605; 84484; 85025; 87040; 93005; 99285; J9999

== ENCOUNTER 2025-06-05 08:53 | Emergency (ER) | payer MEDICAID, SELFPAY ==
[2025-06-05 08:59] VITALS: BP 116/77; PULSE 90; RESP 16; TEMP 36.6; O2SAT 99; BMI 29.0
--- OUTSIDE RECORDS SUMMARY | 2025-06-05 09:07 | XMS_ITS | Encounter Summary ---
Author Organization [employer] Address [address] [place] [address] Care Team Providers Care End Packer Name Role Phone Conversion, History Primary Care Provider Shantel salazar Encounter Details Date Type Department Care Team (Latest Contact Info) Description 12/18/2006 Inpatient Historical [facility] Aric Nathan MD [address] [place] [address] Displacement of Lumbar Intervertebral Disc without Myelopathy (Primary Dx) Social History Tobacco Use Types Packs/Day Years Used Date Smoking Tobacco: Never Assessed Sex and Gender Information Value Date Recorded Sex Assigned at Not on file 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 Gender Identity Not on file Sexual Orientation [...] MD HEMATOLOGY ORDERABLES Edited Performing Organization Address City/[facility] Co de Phone Number INTERFACE SYSTEM Refer to clinic/hospital department * HEMOGLOBIN AND HEMATOCRIT (12/18/2006 7:25 PM CDT) HEMOGLOBIN 14.0 13.6 - 16.5 g/dL INTERFACE SYSTEM HEMATOCRIT 40.4 40.0 - 48.0 % INTERFACE SYSTEM 12/18/2006 7:25 PM CDT us Aric Nathan MD HEMATOLOGY ORDERABLES Edited Performing Organization Address City/[facility] Co de Phone Number INTERFACE SYSTEM Refer to clinic/hospital department * HEMOGLOBIN AND HEMATOCRIT (12/15/2006 12:50 PM CDT) HEMOGLOBIN 15.2 13.6 - 16.5 g/dL INTERFACE SYSTEM HEMATOCRIT 42.2 40.0 - 48.0 % INTERFACE SYSTEM 12/15/2006 12:5 0 PM CDT Aric Nathan MD HEMATOLOGY ORDERABLES Edited Performing Organization Address City/[facility] Co de Phone Number INTERFACE SYSTEM Refer to clinic/hospital department documented in this encounter Visit Diagnoses Diagnosis Displacement of lumbar intervertebral disc without myelopathy- Primary documented in this encounter Care Teams End Packer Relationship Specialty Start Date End Date Conversion, History PCP - General 02/10/07 documented as of this encounter
--- OUTSIDE RECORDS SUMMARY | 2025-06-05 09:07 | XMS_ITS | Encounter Summary ---
Author Organization [employer] Address [address] [place] [address] Care Team Providers Care Recovery Operator Helper Name Role Phone Conversion, History Primary Care Provider Shantel salazar Encounter Details Date Type Department Care Team (Latest Contact Info) Description 05/25/2007 Outpatient Historical [facility] Aric Nathan MD [address] [place] [address] Displacement of Lumbar Intervertebral Disc without Myelopathy (Primary Dx) Social History Tobacco Use Types Packs/Day Years Used Date Smoking Tobacco: Never Assessed Sex and Gender Information Value Date Recorded Sex Assigned at Not on file 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
--- OUTSIDE RECORDS SUMMARY | 2025-06-05 09:07 | XMS_ITS | Encounter Summary ---
Author Organization [employer] Address [address] [place] [address] Care Team Providers Care Aerial Gunner Name Role Phone Conversion, History Primary Care Provider Shantel salazar Encounter Details Date Type Department Care Team (Latest Contact Info) Description 02/10/2007 Outpatient Historical [facility] Aric Nathan MD [address] [place] [address] Displacement of Lumbar Intervertebral Disc without Myelopathy (Primary Dx) Social History Tobacco Use Types Packs/Day Years Used Date Smoking Tobacco: Never Assessed Sex and Gender Information Value Date Recorded Sex Assigned at Not on file 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
--- OUTSIDE RECORDS SUMMARY | 2025-06-05 09:07 | XMS_ITS | Encounter Summary ---
Author Organization [employer] Address [address] [place] [address] Care Team Providers Care Energy Efficiency Finance Manager Name Role Phone Conversion, History Primary Care Provider Shantel salazar Encounter Details Date Type Department Care Team (Latest Contact Info) Description 01/04/2007 Outpatient Historical [facility] Aric Nathan MD [address] [place] [address] Follow-Up Examination, Following Other Surgery (Primary Dx) Social History Tobacco Use Types Packs/Day Years Used Date Smoking Tobacco: Never Assessed Sex and Gender Information Value Date Recorded Sex Assigned at Not on file 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
--- OUTSIDE RECORDS SUMMARY | 2025-06-05 09:07 | XMS_ITS | Encounter Summary ---
Author Organization [employer] Address 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
--- OUTSIDE RECORDS SUMMARY | 2025-06-05 09:07 | XMS_ITS | Clinical Summary ---
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
--- OUTSIDE RECORDS SUMMARY | 2025-06-05 09:07 | XMS_ITS | Encounter Summary ---
Author Organization [facility] Address 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
== END 2025-06-05 09:26 | disposition left against medical advice (07) ==
PROVIDERS: Emergency Provider Physician Assistant; PCP Family Medicine
DX: Z53.21 Procedure and treatment not carried out due to patient leaving prior to being seen by health care provider (principal); T63.301A Toxic effect of unspecified spider venom, accidental (unintentional), initial encounter

== ENCOUNTER 2025-07-31 09:32 | Outpatient (CLI) | payer MEDICAID, SELFPAY ==
--- NOTE | 2025-07-31 09:38 | XR_ITS ---
WS: [id number] Exam: XR cervical spine 3V* [id number] Date/Time of Exam: 07/31/2025 9:42 AM Reason For Exam: neck pain DLP: No fracture or malalignment. Disc spaces are preserved. Minimal facet DJD. Normal paraspinal soft tissues. Slight spondylosis. The dens is normal. XR/XR cervical spine 3V* [id number] IMPRESSION: 1. Very minimal DJD otherwise negative C-spine study.
== END 2025-07-31 09:33 | disposition home or self-care (01) ==
LOC: RAD 09:35
PROVIDERS: PCP Family Medicine; Visit Provider Family Medicine
DX: M54.2 Cervicalgia (principal); G89.29 Other chronic pain
CPT/HCPCS: 72040